=== PATIENT | male | born 1955 | race Caucasian/White ===

== ENCOUNTER 2021-09-26 22:52 | Emergency (ER) | payer SELFPAY ==
--- NOTE | ~2021-09-26 | CT_ITS ---
EXAMINATION: CT cervical spine wo con DATE: 09/27/2021 00:17 INDICATION: Head injury TECHNIQUE: Computed tomography (CT) of the cervical spine was performed without intravenous contrast. The dose-length product (DLP) was 605.33 mGy-cm. Automated exposure control and iterative reconstruc tion technique were employed. COMPARISON: None FINDINGS: There is straightening of the cervical spine which can be positional or due to muscular spa sm. There is no fracture, dislocation, or subluxation. There is moderate loss of intervertebral disc space height at C5-6 and C6-7. Small degenerative osteophytes project from the anterior endplates of multiple vertebral bodies. The odontoid is intact. IMPRESSION: 1. Moderate cervical spondylosis without acute findings. 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
--- NOTE | ~2021-09-26 | CT_ITS ---
EXAMINATION: CT brain wo con INDICATION: Head injury COMPARISON: None TECHNIQUE: Standard unenhanced head CT. The dose-length product (DLP) was 605.33 mGy-cm. The mA was a djusted according to patient size. Iterative reconstruction technique was employed. FINDINGS: There is no intracranial hemorrhage, acute infarction, or abnormal mass lesion. The ventric les are normal. There is no abnormal mass effect or midline shift. The ospina-white matter differentiat ion is normal. The basal cisterns are patent. Changes in the right globe are likely from ocular lens surgery. The paranasal sinuses, mastoids and calvarium are normal. IMPRESSION: 1. No acute intracranial abnormality. 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
[2021-09-26 23:05] VITALS: BP 151/88; PULSE 98; RESP 16; TEMP 36.4; O2SAT 95
--- NOTE | 2021-09-26 23:15 | ECG_ITS ---
Measurements Intervals [place] Rate: 88 P: 13 SD: 152 QRS: 29 QRSD: 109 T: 29 QT: 364 QTc: 442 Interpretive Statements SINUS RHYTHM DELAYED PRECORDIAL R/S TRANSITION MINIMAL Q WAVES- INFERIOR LEADS NONSPECIFIC ST ELEVATION IN ANTEROLAT/HIGH LAT LEADS BORDERLINE ECG Electronically Signed On 09-27-2021 6:27:53 NIGHT COORDINATOR by Gilberto Zacarias D.O.
[2021-09-26 23:39] LABS: Add Urine Microscopic? YES; Appearance Urine Clear (Clear); Bilirubin Urine Negative (Negative); Blood Urine Negative (Negative); Color Urine Light Yellow (Yellow); Glucose Urine UA 3+ (Negative); Ketones Urine Negative (Negative); Leukocyte Esterase Ur Negative (Negative); Nitrate Urine Negative (Negative); Protein Urine Negative (Negative); Urobilinogen Urine 0.2 mg/dL (0.2-1.0)
[2021-09-26 23:45] LABS: Amphetamine Screen Urine Negative (Negative); Barbiturate Screen Urine Negative (Negative); Benzodiazepines Screen Urine Negative (Negative); Cannabinoid Screen Urine Negative (Negative); Cocaine Screen Urine Negative (Negative); Methadone Screen Urine Negative (Negative); Opiate Screen Urine Negative (Negative); Phencyclidine Screen Urine Negative (Negative)
[2021-09-26 23:58] LABS: Basophils Absolute Auto 0.05 K/mm3 (0.00-0.10); Basophils Percent Auto 0.6 % (0.0-1.0); Eosinophils Absolute Auto 0.13 K/mm3 (0.02-0.50); Eosinophils Percent Auto 1.5 % (1.0-6.0); Hematocrit 38.6 % (40.0-54.0); Hemoglobin 12.9 g/dL (14.0-18.0); Immature Granulocyte Absolute 0.14 K/mm3 (0.00-0.00); Immature Granulocyte Percent A 1.6 % (0.0-0.0); Lymphocytes Absolute Auto 2.74 K/mm3 (1.10-4.50); Mean Corpuscular HGB Conc 33.4 g/dL (32.0-36.0); Mean Corpuscular Hemoglobin 31.9 pg (27.0-31.0); Mean Corpuscular Volume 95.3 fL (78.0-102.0); Mean Platelet Volume 9.1 fl (8.7-11.0); Monocytes Absolute Auto 0.79 K/mm3 (0.10-0.90); Monocytes Percent Auto 8.9 % (2.0-11.0); Neutrophils Percent Auto 56.4 % (50.0-70.0); Platelet Count Result 336 K/mm3 (150-420); Red Blood Count 4.05 M/mm3 (4.70-6.10); Red Cell Distribution Width 12.4 % (11.6-14.4); White Blood Count 8.8 K/mm3 (4.8-10.8)
[2021-09-26 23:59] LABS: Bacteria Urine Trace /hpf; RBC Urine 0-2 /hpf (0-2); WBC Urine 0-3 /hpf (0-3)
[2021-09-27 00:15] LABS: Alanine Aminotransferase 54 U/L (16-63); Albumin Level 3.5 g/dL (3.4-5.0); Alkaline Phosphatase 120 U/L (46-116); Anion Gap 12 mmol/L (8-16); Aspartate Amino Transferase 27 U/L (15-37); Bilirubin,Total 0.4 mg/dL (0.00-1.00); Blood Urea Nitrogen 25 mg/dL (7-18); Calcium 8.9 mg/dL (8.5-10.1); Carbon Dioxide 28 mmol/L (21-32); Chloride 100 mmol/L (98-108); Estimated CRCL calculation 56 ml/min; Estimated Glomerular Filt Rate 48; Ethanol 195 mg/dL (0-6); Glucose 284 mg/dL (70-99); Osmolality Calculated 304 mOsm/kg (285-295); Potassium 3.4 mmol/L (3.5-5.1); Sodium 140 mmol/L (136-145); Total Protein 7.5 g/dL (6.4-8.2); Troponin I 6.8 ng/L (0.00-60.4)
[2021-09-27] MEDS: THIAMINE HCL INJ 100 MG, FOLIC ACID 1 MG, MULTIVITAMINS-12 INJ 10 ML, MAGNESIUM SULFATE... 1000 MG IV CONT (00:17)
--- NOTE | 2021-09-27 01:35 | ED.FALL ---
HPI - Fall General Chief Complaint: Fall Stated Complaint: back,neck, head injury Time Seen by Provider: 09/26/21 22:56 Source: patient, family and RN notes reviewed Mode of arrival: ambulatory Limitations: no limitations History of Present Illness complaint: fall Onset (ago): hour(s) (1) Fall from: standing and down stairs (#) Fall witnessed: yes, by family Place fall occurred: home Loss of consciousness: yes Length of LOC: second(s) Prolonged down time: no Symptoms prior to fall: other (Etoh intoxication) Context: tripped/slipped and alcohol use Location of injury: head Severity: mild Severity scale (1-10): 3 Quality: dull and aching Associated symptoms (after fall): headache (minimal) Related Data Home Medications Medication Instructions Recorded Confirmed No Home Medications 09/26/21 09/26/21 Allergies Allergy/AdvReac Type Severity Reaction Status Date / Time No Known Allergies Allergy Verified 09/26/21 23:17 Review of Systems Review of Systems: All systems reviewed & are unremarkable except as noted in HPI and below PMFSH Past Medical History Medical History (Updated 09/27/21 @ 03:45 by Tray Jose MD) Alcohol intoxication Concussion with loss of consciousness Head injury Exam Const: General: no acute distress and alert Nutritional Appearance: well nourished Orientation/consciousness: patient oriented x3 Limitations: no limitations HENMT: Head: normal to inspection Ears: external ears normal and TM's normal bilaterally General nose exam: Normal external nose present and Normal nares present Face and sinus: sinuses nontender Mouth: Yes lip normal and Yes moist mucous membranes Eyes: Conjunctivae: conjunctivae normal Pupils: Equal, round and reactive pupils present EOM: EOMs intact bilaterally Neck: Neck: normal visual inspection and no lymphadenopathy Other: neck supple Chest: Chest palpation & inspection: normal inspection of the chest Resp: Effort & Inspection: normal respiratory effort Auscultation: clear to auscultation bilaterally Cardio: Rate: regular rate Rhythm: regular rhythm GI: GI Palp: Yes Soft to palpation and No Tenderness to palpation present (GI) Auscultation: normal bowel sounds : General: Yes bladder normal to palpation and Yes no CVA tenderness Male General Exam: Yes normal external exam Back/Spine/Pelvis: Back: no CVA tenderness Skin: General skin exam: normal color Neuro: General: patient oriented x3, moves all extremities, no meningeal signs, no focal motor deficits and CN's II-XI intact bilaterally Extrem: General: normal to inspection and no pedal edema Psych: Appearance: grossly normal and well kempt Mental Status: mental status grossly normal Affect: normal affect Attitude: cooperative Thought content: Yes Normal thought content present Course Course Emergency Course: Pt was stable and ambulatory in the ED. Reevaluation(s) Reevaluation #1: VSS Date: 09/26/21 Time: 23:49 Vital Signs Vital signs: Vital Signs Temperature 36.4 C 09/26/21 23:05 Pulse Rate 98 09/26/21 23:05 Respiratory Rate 16 09/26/21 23:05 Blood Pressure 151/88 H 09/26/21 23:05 Pulse Oximetry 95 09/26/21 23:05 Temperature 36.4 C 09/26/21 23:05 Pulse Rate 90 09/27/21 01:50 Respiratory Rate 20 09/27/21 01:50 Blood Pressure 130/56 L 09/27/21 01:50 Pulse Oximetry 100 09/27/21 01:50 MDM - Fall Differential Diagnosis Differential diagnosis: Likely syncope and concussion with loss of consciousness Medical Records Attestation: I reviewed the patient's medical records. Lab Data Attestation: I reviewed the patient's lab results. Result diagrams: 09/26/21 23:54 09/26/21 23:54 Labs: Lab Results 09/26/21 09/26/21 09/26/21 Range/Units 23:32 23:32 23:54 WBC 8.8 (4.8-10.8) K/mm3 RBC 4.05 L (4.70-6.10) M/mm3 Hgb 12.9 L (14.0-18.0) g/dL Hct 38.6 L (40.0-54.0) % MCV 95.3
[2021-09-27 01:50] VITALS: BP 130/56; PULSE 90; RESP 20; O2SAT 100
== END 2021-09-27 01:55 | disposition home or self-care (01) ==
PROVIDERS: Emergency Provider Emergency Medicine
DX: S06.0X9A Concussion with loss of consciousness of unspecified duration, initial encounter (principal); F10.920 Alcohol use, unspecified with intoxication, uncomplicated; W10.9XXA Fall (on) (from) unspecified stairs and steps, initial encounter
CPT/HCPCS: 36415; 70450; 72125; 80053; 80307; 81001; 84484; 85025; 93005; 96365; 99284; J3411; J3475; J7030

== ENCOUNTER 2023-04-11 13:20 | Emergency (ER) | payer MEDICARE, OTHER, SELFPAY ==
--- NOTE | ~2023-04-11 | XR_ITS ---
EXAMINATION: XR finger 1st RT min 2V DATE: 04/11/2023 13:42 INDICATION: Right thumb pain. Fall. TECHNIQUE: 3 views of right thumb were obtained. COMPARISON: None. FINDINGS: There is a comminuted fracture of first distal phalanx in near-anatomic alignment. 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 IMPRESSION: 1. Comminuted fracture of first distal phalanx. Reviewed, dictated and finalized at location E.
[2023-04-11 13:33] VITALS: BP 168/70; PULSE 91; RESP 20; TEMP 37.1; O2SAT 98
--- NOTE | 2023-04-11 13:42 | ED.UPPEXIN ---
HPI - Extremity Injury (Upper) General Chief Complaint: Extremity Injury, Upper Stated Complaint: Right Thumb Injury Source: patient and RN notes reviewed History of Present Illness HPI narrative: 67 yo M presents to urgent care with right thumb pain. Pt states he injured his thumb some how on Saturday night. Pt states alcohol was involved and he woke up Saturday morning on the floor with chairs toppled over. Pt states he doesn't know if he fell out of the chair, passed out, or what, but believes he probably just fell asleep there at the computer b/c he has done that before. Denies any other injury. Denies any TRISTAN, vomiting, chest pain, neck pain, SOB, or abdominal pain. Pt has taken Tylenol at home. Related Data Home Medications Medication Instructions Recorded Confirmed atorvastatin 40 mg tablet mg 04/11/23 glimepiride 4 mg tablet mg 04/11/23 tamsulosin 0.4 mg capsule mg PO 04/11/23 Allergies Allergy/AdvReac Type Severity Reaction Status Date / Time No Known Allergies Allergy Verified 04/11/23 13:43 Review of Systems Review of Systems: CONSTITUTIONAL: Denies fever, chills, or sweats. EYES: Denies visual changes, redness, or discharge. ENT: Denies otalgia and sore throat CARDIOVASCULAR: Denies chest pain, palpitations, or edema. RESPIRATORY: Denies cough or dyspnea. GASTROINTESTINAL: Denies abdominal pain, nausea, vomiting, or diarrhea. GENITOURINARY: Denies dysuria or hematuria. SKIN: Denies rash or itching. MUSCULOSKELETAL: Right thumb pain NEUROLOGIC: Denies headache, numbness, or weakness. Pertinent positives per HPI. PMFSH Comments At the time of my signature, I reviewed and agree with the nursing past medical, surgical, social, and family history. There is no relevant family history pertinent to the patient complaint. Exam Narrative: GENERAL: This is a well-nourished, well-developed patient, in no apparent distress. HEAD: normocephalic, atraumatic. EYES: Sclera clear/white. Vision is grossly intact. EARS: External ears normal, auditory canals clear and without drainage, TMs normal without perforation. Hearing grossly intact. NOSE: External nose normal with no obvious nasal discharge, nares without redness, no rhinorrhea. THROAT: Mucous membranes moist, posterior pharynx clear. NECK: Neck supple, non-tender without lymphadenopathy, masses or thyromegaly. CARDIOVASCULAR: Regular rate and rhythm without murmurs, gallops, or rubs. RESPIRATORY: Clear to auscultation. Breath sounds equal bilaterally. No wheezes, rales, or rhonchi. GASTROINTESTINAL: Abdomen soft, non-tender, nondistended. Bowel sounds are active. No hepato-splenomegaly, or palpable masses. No guarding. SKIN: warm, intact with no suspicious lesions or rash, good texture and turgor. NEURO: awake, alert, and oriented to person, place and time. There were no obvious focal neurologic abnormalities. EXTREMITIES: Right thumb noted to be bruised, tender, and edematous. Lower half of base of nail was bruised. Cap refill < 3 seconds. BACK: Nontender without deformity or crepitus. No flank tenderness. Course Course Level of Care: Express Care Visit Vital Signs Vital signs: Vital Signs Temperature 98.7 F 04/11/23 13:33 Pulse Rate 91 04/11/23 13:33 Respiratory Rate 20 04/11/23 13:33 Blood Pressure 168/70 H 04/11/23 13:33 Pulse Oximetry 98 04/11/23 13:33 Oxygen Delivery Room Air 04/11/23 13:33 Temperature 98.7 F 04/11/23 13:33 Pulse Rate 91 04/11/23 13:33 Respiratory Rate 20 04/11/23 13:33 Blood Pressure 168/70 H 04/11/23 13:33 Pulse Oximetry 98 04/11/23 13:33 Oxygen Delivery Room Air 04/11/23 13:33 Reviewed Procedures Nail Trephination Nail Trephination #1: Nail Trephination Date: 04/11/23 Nail Trephination Time: 14:10 Time out: Yes Location (finger): right and thumb Sterile prep: chlorhexidine Method of drainage: nail cautery Procedure
== END 2023-04-11 14:27 | disposition home or self-care (01) ==
PROVIDERS: Emergency Provider Nurse Practitioner Family
DX: S62.524A Nondisplaced fracture of distal phalanx of right thumb, initial encounter for closed fracture (principal); W19.XXXA Unspecified fall, initial encounter; E78.00 Pure hypercholesterolemia, unspecified; I10 Essential (primary) hypertension; E11.9 Type 2 diabetes mellitus without complications
CPT/HCPCS: 29130; 73140; 99214; G0463

== ENCOUNTER 2025-07-25 08:27 | Emergency (ER) | payer MEDICARE, OTHER, SELFPAY ==
--- OUTSIDE RECORDS SUMMARY | 2025-03-24 08:15 | XMS_ITS ---
Author Organization [facility] Address [address] [place] [id number] Care Team Providers Care Box Sealing Machine Catcher Name Role Phone STEPHANIA BRIGGS Unavailable [phone] AileenGal diaz Unavailable Unavailable Allergies Allergen (clinical drug ingredient) Drug/Non Drug Allergy documented on EMR Reaction Allergy Type Onset Date Status acetaminophen / oxycodone acetaminophen/oxycodo ne (uncoded) Unknown Allergy Active REASON FOR VISIT FOLLOW-UP VISIT, General ROS/Exam Medications Medication SIG (Take, Route, Frequency, Duration) Notes Start Date End Date Status Escitalopram Oxalate 20 MG 1 tablet Oral ly Once a day Active Atorvastatin Calcium 40 MG 1 tablet Oral ly Once a day Active Gabapentin 100 MG TAKE 1 CAPSULE BY [facility] THREE TIMES A DAY Oral; Duration: 30 Days Active hydrALAZINE HCl 50 MG 1 tablet with food Orally Twice a day Active metFORMIN HCl 500 MG 1 tablet with a chichi l Orally Once a day Active Tamsulosin HCl 0.4 MG 1 capsule Orally O nce a day Active Spironolactone 25 MG 1 tablet Orally Onc e a day Active Glimepiride 4 MG 1 tablet with breakf ast or the first main meal of the day Orally Once a day Active cloNIDine HCl 0.2 MG 1 tablet Orally Onc e a day Active Social History Tobacco Use: Social History Observation Description Date Details (start date - stop date) Former Smoker NA - NA Tobacco Control (Standard) Question Answer Notes Tobacco use: Former smoker AUDIT-C (Standard) Question Answer Notes Did you have a drink contain ing alcohol in the past year? Yes How often did you have a dri nk containing alcohol in the past year? Daily or almost daily (4 points) How many drinks did you have on a typical day when you were drinking in the past year? 1 or 2 drinks (0 point) How often did you have six o r more drinks on one occasion in the past year? Never (0 point) Points 4 Interpretation Positive Vital Signs Height 70 in 03/24/2025 Weight 218.4 lbs 03/24/2025 BMI 31.33 kg/m2 03/24/2025 Blood pressure systolic 160 mm Hg 03/24/20 25 Blood pressure diastolic 60 mm Hg 025 Heart Rate 98 /min 03/24/2025 Respiratory Rate 18 /min 03/24/2025 Weight-kg 99.07 kg 03/24/2025 Encounters Encounter Location Date Provider Diagnosis [place] [id number] [address] 03/24/2025 STEPHANIA BRIGGS CKD (chronic kidney disease) stage 4, GFR 15-29 ml/min N18.4 ; Essential (primary) hypertension I10 ; Type 2 diabetes mellitus without complications E11.9 ; Hyperlipidemia, unspecified E78.5 ; Benign prostatic hyperplasia without lower urinary tract symptoms N40.0 and Other specified anxiety disorders F41.8 Assessments Encounter Date Diagnosis (ICD Code) Assessment Notes Treatment Notes Treatment Clinical Notes Section Notes 03/24/2025 CKD (chronic kidney disease) stage 4, GFR 15-29 ml/min (ICD-10 - N18.4) 03/24/2025 Essential (primary) hypertension (ICD-10 - I10) 03/24/2025 Type 2 diabetes mellitus without complications (ICD-10 - E11.9) 03/24/2025 Hyperlipidemia, unspecified (ICD-10 - E78.5) 03/24/2025 Benign prostatic hyperplasia without lower urinary tract symptoms (ICD-10 - N40.0) 03/24/2025 Other specified anxiety disorders (ICD-10 - F41.8) Plan Of Treatment Next Appt Details Follow Up: 3 Weeks, Reason: Progress Notes * IGNACIO CONRAD SDOB:[birth year] (69 yo M)Acc No.[id number]:03/24/2025 Progress Notes Patient: IGNACIO ANTHONY Provider: Bob Briggs MD :1955 A ge:69 Y S ex:Male Date:03/24/2025 Address:[address] Subjective: * Chief Complaints: * 1 . FOLLOW-UP VISIT. 2. General ROS/Exam. * HPI: C hronic kidney disease: . 69-year-old with medical history significant for diabetes mellitus type 2 for 10 years, diabetic neuropathy, hypertension, obesity who presents for evaluation and management of abnormal renal function. Patient was recently seen on February 03 by my partner and at that time his Aldactone HCTZ and olmesartan was discontinued and he was restarted on amlodipine. Patient reports he went to see his primary care physician recently and he was started on some diuretic the name of which he does not know. His weight has decreased by 2 lb since he was last seen here. Renal function has markedly improved with creatinine close to baseline but he has severe bilateral lower extremity edema. Patient does not remember the name of the diuretic that he was placed on. He is supposed to call us tomorrow and let us know. On direct questioning patient reports that he has been a heavy alcohol drinker and used to drink a lot of beer before that he has quit but now drinks whiskey. He used to drink a 5th every night with has decreased by half. He also has history of heavy tobacco use but quit about 20 years ago. 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 Workup is negative for vasculitis, GN, monoclonal gammopathy. 24 hour urine protein with 342 mg of proteinuria.Next 128 by a 5.9 and left kidney 10.9 x 5.9 cm with no evidence of obstructive uropathy Blood pressure elevated today Home blood pressure readings requested. Patient will call us back with his diuretic name and also will keep track of his blood pressure. He will need his diuretics increased. Diet discussed with sodium restrictions discussed. I will see him back in 3 weeks . * ROS: G eneral / Constitutional: Change in appetite d enies. L ightheadedness d enies. W eakness d enies. R espiratory: Hemoptysis d enies. S hortness of breath at rest d enies. G astrointestinal: Abdominal pain d enies. C hange in bowel habits d enies. V omiting d enies. H ematology: Bleeding problems d enies. W eight loss d enies.? M usculoskeletal: Joint stiffness d enies. S kin: Ulcerations d enies. * Active Problem List N18.4 CKD (chronic kidney disease) stage 4, GFR 15-29 ml/min Modified On:02/03/2025 Status:confirmed I10 Essential (primary) hypertension Onset Date:11/12/2023Modified On:02/03/2025 Status:confirmed E11.9 Type 2 diabetes romy itus without complications Onset Date:11/12/2023Modified On:02/03/2025 Status:confirmed E78.5 Hyperlipidemia, unsp ecified Onset Date:04/27/2024Modified On:02/03/2025 Status:confirmed N40.0 Benign prostatic hyp erplasia without lower urinary tract symptoms Onset Date:11/12/2023Modified On:02/03/2025 Status:confirmed F41.8 Other specified anxi ety disorders Onset Date:11/12/2023Modified On:02/03/2025 Status:confirmed I89.0 Lymphedema Modified On:04/29/2025 Status:confirmed * Medical History: M edical History Verified. * Social History: T obacco Use: T obacco Control (Standard) T obacco use: F ormer smoker D rug/Alcohol: A ERNESTO-C (Standard) D id you have a drink containing alcohol in the past year? Y es H ow often did you have a drink containing alcohol in the past year? D aily or almost daily (4 points) H ow many drinks did you have on a typical day when you were drinking in the past year? 1 or 2 drinks (0 point) H ow often did you have six or more drinks on one occasion in the past year? N ever (0 point) P oints 4 I nterpretation P ositive * Medications: T aking hydrALAZINE HCl 50 MG Tablet 1 tablet with food Orally Twice a day , Taking metFORMIN HCl 500 MG Tablet 1 tablet with a meal Orally Once a day , Taking cloNIDine HCl 0.2 MG Tablet 1 tablet Orally Once a day , Taking Spironolactone 25 MG Tablet 1 tablet Orally Once a day , Taking Tamsulosin HCl 0.4 MG Capsule 1 capsule Orally Once a day , Taking Glimepiride 4 MG Tablet 1 tablet with breakfast or the first main meal of the day Orally Once a day , Taking Escitalopram Oxalate 20 MG Tablet 1 tablet Orally Once a day , Taking Atorvastatin Calcium 40 MG Tablet 1 tablet Orally Once a day , Taking Gabapentin 100 MG Capsule TAKE 1 CAPSULE BY MOUTH THREE TIMES A DAY Oral , Medication List reviewed and reconciled with the patient * Allergies: A cetaminophen/oxycodone. Objective: * Vitals: H t (ft'in): 5'10, Ht: 70 in, Wt:218.4lbs, BMI:31.33Index, BP:160/60mm Hg, HR:98/min, RR:18/min, Wt-k.07 kg, Body Surface Area: 2.21. * P ast Orders: L ab:KVNG by IFA, Reflex to 11-biomarker profile, dsDNA, ENGINEERING LABORATORY TECHNICIAN, Sm, SS-A, SS-B, Scl- 70, Chromatin, Melissa-1, Centromere B, Sm/ENGINEERING LABORATORY TECHNICIAN, Ribosomal P by Multiplex Immunoassay- [id number] (Order Date - 03/07/2025) (Collection Date & Time - 02/15/2025 01:51 PM) Value Reference Range Antinuclear Antibodies, IFA Negative - L ab:Immunofixation (ARTIS) and Protein Electrophoresis, 24-Hour Urine-[id number] (Order Date - 03/07/2025) (Collection Date & Time - 02/15/2025 01:51 PM) Value Reference Range Protein,Total,Urine 34.2 Not Estab. - mg/dL Prot,24hr calculated 342 H 30-150 - mg/24 hr Albumin, U 55.1 - % Pbguj-7-Orjyscjj, U 1.2 - % Ysxaw-4-Qwzeolpw, U 5.7 - % Beta Globulin, U 16.7 - % Gamma Globulin, U 21.4 - % M-Lauro, % Not Observed Not Observed - % Immunofixation Result, Urine Comment: - PDF . - L ab:Immunofixation (ARTIS), Serum-[id number] (Order Date - 03/07/2025) (Collection Date & Time - 02/15/2025 01:51 PM) Value Reference Range Immunofixation Result, Serum Comment: - Immunoglobulin G, Qn, Serum [phone] - m g/dL Immunoglobulin A, Qn, Serum 269 61-437 - mg/ dL Immunoglobulin M, Qn, Serum 81 20-172 - mg/ dL L ab:ANCA Profile-[id number] (Order Date - 03/07/2025) (Collection Date & Time - 02/15/2025 01:51 PM) Value Reference Range Anti-MPO Antibodies <0.2 0.0-0.9 - units Anti-PR3 Antibodies <0.2 0.0-0.9 - units Cytoplasmic (C-ANCA) <1:20 Neg:<1:20 - titer Perinuclear (P-ANCA) <1:20 Neg:<1:20 - titer Atypical pANCA <1:20 Neg:<1:20 - titer L ab:Anti-Glomerular Basement Membrane Antibodies (RDL)-[id number] (Order Date - 03/07/2025) (Collection Date & Time - 02/15/2025 01:51 PM) Value Reference Range Anti-GBM Ab (RDL) <20 <20 - Units L ab:Acute Viral Hepatitis-[id number] (Order Date - 03/07/2025) (Collection Date & Time - 02/15/2025 01:51 PM) Value Reference Range Hep A Ab, IgM Negative Negative - HBsAg Screen Negative Negative - Hep B Core Ab, IgM Negative Negative - HCV Ab Non Reactive Non Reactive - L ab:HIV Ag/Ab with Reflex-[id number] (Order Date - 03/07/2025) (Collection Date & Time - 02/15/2025 01:51 PM) Value Reference Range HIV Screen 4th Generation wRfx Non Reactive Non React cody - L ab:C3+C4+CompT-[id number] (Order Date - 03/07/2025) (Collection Date & Time - 02/15/2025 01:51 PM) Value Reference Range Complement C3, Serum 166 82-167 - mg/dL Complement C4, Serum 31 12-38 - mg/dL Complement, Total (CH50) >60 >41 - U/mL L ab:Renal Panel ([id number] (Order Date - 03/07/2025) (Collection Date & Time - 02/15/2025 01:51 PM) Value Reference Range Glucose 107 H 70-99 - mg/dL BUN 10 8-27 - mg/dL Creatinine 1.06 0.76-1.27 - mg/dL BUN/Creatinine Ratio 9 L 10-24 - Sodium 135 134-144 - mmol/L Potassium 3.6 3.5-5.2 - mmol/L Chloride 98 96-106 - mmol/L Carbon Dioxide, Total 22 20-29 - mmol/L Calcium 9.0 8.6-10.2 - mg/dL Phosphorus 2.2 L 2.8-4.1 - mg/dL Albumin 4.3 3.9-4.9 - g/dL eGFR 77 >59 - mL/min/1.73 L ab:Albumin, 24-Hr Urine-[id number] (Order Date - 03/07/2025) (Collection Date & Time - 02/15/2025 01:51 PM) Value Reference Range Albumin, Urine 96.8 Not Estab. - ug/mL Albumin,Urine mg/day 97 H 0-29 - mg/day * Examination: G eneral Examination: General appearance: a lert, pleasant, well-nourished and in no acute distress . Head: n ormocephalic, atraumatic. Eyes: p upils equal, round, reactive to light and accommodation. Ears: n ormal. Throat: c lear. Neck / thyroid: c arotid pulses are normal and without bruits neck is supple, with full range of motion and no cervical lymphadenopathy trachea midline . Skin: s kin is warm and dry, with no rashes, good skin turgor and normal hair distribution with no suspicious skin lesions . Heart: r egular rate and rhythm without murmurs, gallops, clicks or rubs no jugular venous distention . Lungs: c lear to auscultation bilaterally, with good air movement and no rales, rhonchi or wheezes . Chest: c hest wall with no costochondral junction tenderness, no rib deformity and normal shape and expansion . Breasts: n ot examined . Abdomen: s oft with good bowel sounds, nontender, and no masses or hepatosplenomegaly . Extremities: n ormal extremity with no clubbing, cyanosis or edema . Peripheral pulses: n ormal 2+ arterial pulses . Neurologic: n onfocal alert and oriented . Psych: a lert and oriented x 3 . Assessment: * Assessment: 1. C KD (chronic kidney disease) stage 4, GFR 15-29 ml/min - N18.4 (Primary) 2 . E ssential (primary) hypertension - I10 3 . T ype 2 diabetes mellitus without complications - E11.9 4 . H yperlipidemia, unspecified - E78.5 5. B enign prostatic hyperplasia without lower urinary tract symptoms - N40.0 ?6. O ther specified anxiety disorders - F41.8 Plan: * Treatment: * Preventive Medicine: Screenings: F all risk screening Screening: N o falls in the past year * Follow Up: 3 Weeks * * Electronic signature of MITZI BRIGGS MD on 07/25/2025 at 08:29 AM FURNACE UTILITY OPERATOR Sign off status: Pending * Provider: Bob Briggs MD Date: 0 03/24/2025 Generated for Lux kowalski/Srinivas/Faisal on: 1 09/25/2024 08:29 AM FURNACE UTILITY OPERATOR History and Physical Notes * HPI (History of Present Illness) Category Sub-Category Detail Notes Category Not es Chronic kidney disease . 69-year-old with medical history significant for diabetes mellitus type 2 for 10 years, diabetic neuropathy, hypertension, obesity who presents for evaluation and management of abnormal renal function. Patient was recently seen on February 03 by my partner and at that time his Aldactone HCTZ and olmesartan was discontinued and he was restarted on amlodipine. Patient reports he went to see his primary care physician recently and he was started on some diuretic the name of which he does not know. His weight has decreased by 2 lb since he was last seen here. Renal function has markedly improved with creatinine close to baseline but he has severe bilateral lower extremity edema. Patient does not remember the name of the diuretic that he was placed on. He is supposed to call us tomorrow and let us know. On direct questioning patient reports that he has been a heavy alcohol drinker and used to drink a lot of beer before that he has quit but now drinks whiskey. He used to drink a 5th every night with has decreased by half. He also has history of heavy tobacco use but quit about 20 years ago. 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 Workup is negative for vasculitis, GN, monoclonal gammopathy. 24 hour urine protein with 342 mg of proteinuria.Next 128 by a 5.9 and left kidney 10.9 x 5.9 cm with no evidence of obstructive uropathy Blood pressure elevated today Home blood pressure readings requested. Patient will call us back with his diuretic name and also will keep track of his blood pressure. He will need his diuretics increased. Diet discussed with sodium restrictions discussed. I will see him back in 3 weeks . Examination Category Sub-Category Detail Notes Category Not es General Examination General appearance: alert, p leasant, well-nourished and in no acute distress Head: normocephalic, atrau matic Eyes: pupils equal, round, reactive to light and accommodation Ears: normal Throat: clear Neck / thyroid: carotid pulses are n ormal and without bruits neck is supple, with full range of motion and no cervical lymphadenopathy trachea midline Heart: regular rate and rhy thm without murmurs, gallops, clicks or rubs no jugular venous distention Chest: chest wall with no c ostochondral junction tenderness, no rib deformity and normal shape and expansion Lungs: clear to auscultatio n bilaterally, with good air movement and no rales, rhonchi or wheezes Abdomen: soft with good bowel sounds, nontender, and no masses or hepatosplenomegaly Neurologic: nonfocal alert and o riented Skin: skin is warm and dry , with no rashes, good skin turgor and normal hair distribution with no suspicious skin lesions Extremities: normal extremity wit h no clubbing, cyanosis or edema Peripheral pulses: normal 2+ arterial p ulses Breasts: not examined Psych: alert and oriented x 3
--- OUTSIDE RECORDS SUMMARY | 2025-07-25 08:29 | XMS_ITS | Patient Health Record ---
Author Organization [facility] Address [address], [place] LAKESHIA Rajan [id number] Phone [phone] Care Team Providers Care Tool/Die Maker Name Role Phone Chandra Collins Primary Care Provider Allergies No Known Allergies Reason For Referral No Information Medications Medication SIG (Take, Route, Frequency, Duration) Notes Start Date End Date Diagnosis (ICD Code) Status Glimepiride 4 mg tablet 1 tab(s) orally once a day; Duration: 90 days Active Finasteride 5 mg tablet 1 tab(s) orally once a day; Duration: 90 days Active Atorvastatin Calcium 40 mg tablet 1 tab(s) orally once a day; Duration: 90 days Active Benicar 40 mg tablet 1 tab(s) orally once a day; Duration: 90 days needs seen Active metFORMIN HCl 500 MG tablet 1 tab(s) orally 2 times a day; Duration: 90 days Active Felodipine ER 5 mg tablet, extended release 1 tab(s) orally once a day; Duration: 90 days *Pick strength-form from [employer] for eRX* 2 Essential hypertension (ICD_10 - I10) Active Escitalopram Oxalate 20 MG tablet 1 tab(s) orally once a day; Duration: 90 days needs seen Active Social History Sex Observation Social History Observation Description Sex Observation Male Social History Additional Details Category Social Info Options Details Migrated Social History Migrated Social History (Alcohol:): How often did you have a drink containing alcohol in the past year? 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 > 10 years Problems Problem Type SNOMED Code ICD Code Dates Problem Status W/U Status Risk Notes Problem Essential hypertension (25838548) Essential hypertension (I10) Added On:2018 Active confirmed Problem Dyslipidemia (674768617) Dyslipidemia (E78.5) Added On:2018 Active confirmed Problem Dysthymia (04696887) Dysthymia (F34.1) Added On:2019 Active confirmed Problem Obese class I (finding) (915752735748189 ) Obesity (BMI 30.0-34.9) (E66.9) Added On:2018 Active confirmed Problem Peripheral vascular disease (497785041) PVD (peripheral vascular disease) (I73.9) Added On:2018 Active confirmed Problem Benign prostatic hypertrophy without outflow obstruction (932499556) Benign prostatic hyperplasia, unspecified whether lower urinary tract symptoms present (N40.0) Added On:2018 Active confirmed Problem Fatty liver (188609558) Fatty liver (K76.0) Added On:2020 Active confirmed Problem Type II diabetes mellitus without complication (653466965) Type 2 diabetes mellitus without complication, without long-term current use of insulin (E11.9) Added On:2018 Active confirmed Problem Cortical senile cataract (62804399) Cortical age-related cataract, unspecified laterality (H25.019) Added On:2022 Active confirmed Plan Of Treatment No Information Insurance Providers Payer Name Payer Address Payer Phone Subscriber Number Group Number Insured Name Patient Relationship to Insured Coverage Start Date Coverage End Date Medicare [address] [place] [id number] Jamar Mesa Self - patient is the insured [place] [address] [id number] Jamar Mesa Self - patient is the insured Medical (General) History Medical History History ICD Code Benign prostatic hyperplasia , unspecified whether lower urinary tract symptoms present N40.0 Type 2 diabetes mellitus wit hout complication, without long-term current use of insulin E11.9 Essential hypertension I10 Dyslipidemia E78.5 Obesity (BMI 30.0-34.9) E66.9 pneumonia Dysthymia F34.1 COVID 19 Fatty liver K76.0 PVD (peripheral vascular disease) I73.9 Surgical History Surgery Date(Month/Year) appendectomy colonoscopy 1999?? cataract R
--- OUTSIDE RECORDS SUMMARY | 2025-07-25 08:29 | XMS_ITS | Data Portability ---
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 Plan of Treatment Reminders Order Date Submit Date Provider Last Modified By Organization Details Last Modified Time Details Appointments ANY 15 2025 07:45A M Patricia Wolfe APN, [employer]-C Not available Not available Not available ANY 15 2025 08:15A M Gal Gallagher MD Not available Not available Not available Lab CMP, serum or plasma 2024 026 [facility], [address], [address], 07/09/2025 09:57:03 HbA1c (hemoglo bin A1c), blood 2024 025 In-Office Order, Internal Use Only DO Not Attach Compendium DO Not Attach Compendium, Do Not Delete/merge, [id number] 06/16/2025 18:10:18 BMP, serum or plasma 2024 025 [facility], [address] [facility] [address], [address], 07/01/2025 08:40:19 BMP, serum or plasma 2024 025 [facility], [address] [facility] [address], [address], 06/09/2025 07:40:00 pro BNP (pro B-type natriure tic peptide) , serum or plasma 2024 025 [facility], [address] [place] [address], [place], [address], 06/09/2025 07:39:59 pro BNP (pro B-type natriure tic peptide) , serum or plasma 2024 025 [facility], [address] [place] [address], [place], [address], 05/11/2025 09:39:46 BMP, serum or plasma 2024 025 [facility], [address] [place] [address], [place], [address], 05/11/2025 09:39:46 Referral None recorded . Procedures None recorded . Surgeries None recorded . Imaging pharmaco logic nuclear stress test - Pharmaco logic nuclear stress test 2024 [facility], [address], [place], [address], 07/16/2025 16:25:43 Medication Orders olmesart an 20 mg tablet 2024 [facility], [address], [place], [address], 07/09/2025 09:57:05 Kerendia 20 mg tablet 2024 [facility], [address], [place], [address], 07/11/2025 05:01:57 torsemid e 20 mg tablet 2024 [facility], [address], [place], [address], 07/12/2025 14:43:54 Miralax 17 gram/dos e oral powder 2024 [facility], [address], [place], [address], 06/14/2025 09:08:12 gabapent in 100 mg capsule 2024 [facility], [address], [place], [address], 06/14/2025 09:08:13 torsemid e 20 mg tablet 2024 [facility], [address], [place], [address], 07/12/2025 14:43:14 Kerendia [address] [facility][id number], [address] [place] [address], [address], 07/11/2025 05:01:57 Kerendia 20 mg tablet 2024 [facility], [address], [place], [address], 07/11/2025 05:01:57 clonidin e HCl 0.1 mg tablet 2024 [facility], [address], [place], [address], 06/08/2025 09:58:22 torsemid e 20 mg tablet 2024 [facility], [address], [place], [address], 07/12/2025 14:43:14 hydralaz ine 100 mg tablet 2024 025 [facility], [address], [place], [address], 05/07/2025 16:43:17 torsemid e 20 mg tablet 2024 Isabella perdomomala [facility], [address], [place], [address], 07/12/2025 14:43:14 Patient TargetsNo targets recorded. Patient Instructions Encounter Date Encounter Id Patient Instructions Last Modified By Organization Details Last Modified Time 04/30/2025 [id number] A healthy lifestyle: care instructions [email or web address] Not available 04/30/2025 09:46:29 Discontinue telmisartan Clonidine 0.2 mg to be taken up to twice daily if the systolic blood pressure is greater than 160 Change hydralazine from 50 twice a day to 100 twice a day Restart torsemide. Instead of taking it 20 mg twice a day, please start at 10 mg once a day Drink at least 64 oz of water every day. Blood work in 10 days' time Follow-up with me in about 4 weeks' time Not available 04/30/2025 09:44:19 05/31/2025 [id number] A healthy lifestyle: care instructions [email or web address] Not available 05/31/2025 13:31:17 - Start clonidin e 0.1 mg twice a day scheduled. If your systolic number is over 160 you can take an extra clonidine up to twice a day. - for 1 week change her torsemide from 20 mg once a day to 20 mg twice a day. - call our office with an update on symptoms of leg swelling, weight and shortness of breath in 1 week's time. - Do blood work to check your kidney function in 1 week's time [email or web address] Not available 05/31/2025 13:31:37 06/11/2025 [id number] [employer] home BP monitor Change Torsemide to 20 mg once a day Start Kerendia 20 mg once a day Stop spironolactone Follow up Dec 1 as scheduled with labs prior Not available 06/11/2025 09:53:02 06/14/2025 [id number] high blood pressure: care instructions Not available 06/14/2025 09:08:05 learning about high blood pressure Not available 06/14/2025 09:08:05 high cholesterol : care instructions Not available 06/14/2025 09:08:05 A healthy lifestyle: care instructions Not available 06/14/2025 09:08:05 learning about mood disorders Not available 06/14/2025 09:08:05 Increase intake of fresh fruits, and vegetables. Avoid packaged foods and fast foods. Follow a low salt diet, drink at least 8-10 8oz glasses of water a day, exercise most days of the week. Take all medications as prescribed. Keep appointments with PCP and all specialists. Not available 06/14/2025 08:44:00 f/u 3 months DWP barriers to care: none Not available 06/14/2025 08:44:04 07/09/2025 [id number] A healthy lifestyle: care instructions [email or web address] Not available 07/09/2025 09:57:03 Start Olmesartan 20 mg once a day Labs in 4 weeks Stress test in about 2 months Follow up in about 3 months [email or web address] Not available 07/09/2025 09:56:43 Reason for Referral None Reported. Results Created Date Observation Date Name Description Value Unit Range Abnormal Flag Note LastModifiedBy Organization Detail LastModifiedTime 04/01/2004/01/2025 Lipas e [Enzy matic activ ity/v olume ] in Serum or Plasm a lipase [enzymatic activity/vol ume] in serum or plasma 29 U/L high: 60U/L Not Available Not Available 04/02/2025 23:10:59 04/01/20 25 04/01/2025 Lipas e [Enzy matic activ ity/v olume ] in Serum or Plasm a interpretati on and review of laboratory results Normal Not Available Not Available 03/06 23:10:59 04/01/20 25 04/01/2025 Thyro tropi n [Unit s/vol ume] in Serum or Plasm a thyrotropin [units/volum e] in serum or plasma by detection limit <= 0.005 mIU/L 2.003 text: 0.350 - 4.940 uIU/mL Not Available Not Available 04/02/2025 23:10:59 04/01/20 25 04/01/2025 Thyro tropi n [Unit s/vol ume] in Serum or Plasm a interpretati on and review of laboratory results Normal Not Available Not Available 03/06 23:10:59 04/01/20 25 04/01/2025 Compr Say-Hey cody Gravie olic 1999 panel - Serum or Plasm a glucose [mass/volume ] in serum or plasma 257 mg/dL low: 70mg/d Lhigh: 99mg/d L high Not Available Not Available 04/02/2025 23:10:59 04/01/20 25 04/01/2025 Compr [employer] cody metab olic 1999 panel - Serum or Plasm a sodium [moles/volum e] in serum or plasma 127 mmol/ L low: 136mmo l/Lhig h: 145mmo l/L low Not Available Not Available 04/02/2025 23:10:59 04/01/20 25 04/01/2025 Compr [employer] Gravie olic 1999 panel - Serum or Plasm a potassium [moles/volum e] in serum or plasma 3.2 mmol/ L low: 3.5mmo l/Lhig h: 5.1mmo l/L low Not Available Not Available 04/02/2025 23:10:59 04/01/20 25 04/01/2025 [facility] [employer] Gravie olic 1999 panel - Serum or Plasm a chloride [moles/volum e] in serum or plasma 83 mmol/ L low: 98mmol /Lhigh : 107mmo l/L low Not Available Not Available 04/02/2025 23:10:59 04/01/20 25 04/01/2025 Compr [employer] Gravie olic 1999 panel - Serum or Plasm a carbon dioxide, total [moles/volum e] in serum or plasma 30 mmol/ L low: 22mmol /Lhigh : 29mmol /L high Not Available Not Available 04/02/2025 23:10:59 04/01/20 25 04/01/2025 Compr Say[employer]Hey [employer] Gravie olic 1999 panel - Serum or Plasm a calcium [mass/volume ] in serum or plasma 9.1 mg/dL low: 8.4mg/ dLhigh : 10.4mg /dL Not Available Not Available 04/02/2025 23:10:59 04/01/20 25 04/01/2025 Compr Say-Hey [employer] Gravie olic 1999 panel - Serum or Plasm a anion gap in blood by calculation 14 mmol/ L low: 6mmol/ Lhigh: 16mmol /L Not Available Not Available 04/02/2025 23:10:59 04/01/20 25 04/01/2025 [facility] 1999 panel - Serum or Plasm a urea nitrogen [mass/volume ] in serum or plasma 15 mg/dL low: 7mg/dL high: 26mg/d L Not Available Not Available 04/02/2025 23:10:59 04/01/20 25 04/01/2025 [facility] 1999 panel - Serum or Plasm a creatinine [mass/volume ] in serum or plasma 1.34 mg/dL low: 0.72mg /dLhig h: 1.25mg /dL high Not Available Not Available 04/02/2025 23:10:59 04/01/20 25 04/01/2025 [facility] 1999 panel - Serum or Plasm a alkaline phosphatase [enzymatic activity/vol ume] in serum or plasma 151 U/L low: 40U/Lh igh: 150U/L high Not Available Not Available 04/02/2025 23:10:59 04/01/20 25 04/01/2025 [facility] [employer] 1999 panel - Serum or Plasm a alanine aminotransfe rase [enzymatic activity/vol ume] in serum or plasma 101 U/L low: 6U/Lhi gh: 57U/L high Not Available Not Available 04/02/2025 23:10:59 04/01/20 25 04/01/2025 [facility] [employer] 1999 panel - Serum or Plasm a aspartate aminotransfe rase [enzymatic activity/vol ume] in serum or plasma 126 U/L low: 10U/Lh igh: 48U/L high Not Available Not Available 04/02/2025 23:10:59 04/01/20 25 04/01/2025 [facility] 1999 panel - Serum or Plasm a protein [mass/volume ] in serum or plasma 8.4 text: 6.4 - 8.3 gm/dL high Not Available Not Available 04/02/2025 23:10:59 04/01/20 25 04/01/2025 [facility] ehens cody metab ol 1999 panel - Serum or Plasm a albumin [mass/volume ] in serum or plasma 4 text: 3.1 - 4.5 gm/dL Not Available Not Available 04/02/2025 23:10:59 04/01/20 25 04/01/[facility]25 [facility] - Serum or Plasm a bilirubin.to krystle [mass/volume ] in serum or plasma 1.1 mg/dL low: 0.2mg/ dLhigh : 1.2mg/ dL Not Available Not Available 04/02/2025 23:10:59 04/01/20 25 04/01/2025 Compr ens cody metab olic 1999 panel - Serum or Plasm a glomerular filtration rate [volume rate/area] in serum, plasma or blood by creatinine-b ased formula (CKD-epi 2020)/1.73 sq M 58 text: >=90 mL/min /1.73 m2 low Estim ated Glome rular Filtr ation Rate (eGFR ) calcu lated using the CKD-E PI Creat inine Equat ion (2020 ), per the Natio nal Kidne y Found ation and Ameri can Socie ty of Nephr ology recom menda tions . Not Available Not Available 04/02/2025 23:10:59 04/01/20 25 04/01/2025 [facility] panel - Serum or Plasm a interpretati on and review of laboratory results Abnorm al Not Available Not Available 23:10:59 04/01/20 25 04/01/2025 CBC W Auto Diffe renti al panel - Blood leukocytes [#/volume] in blood by automated count 15.5 text: 4.0 - 10.7 x10e9/ L high Not Available Not Available 04/02/2025 23:10:59 04/01/20 25 04/01/2025 CBC W Auto Diffe renti al panel - Blood erythrocytes [#/volume] in blood by automated count 3.73 text: 4.30 - 5.80 x10e12 /L low Not Available Not Available 04/02/2025 23:10:59 04/01/20 25 04/01/2025 CBC W Auto Diffe renti al panel - Blood hemoglobin [mass/volume ] in blood 12.7 g/dL low: 13.3g/ dLhigh : 17.5g/ dL low Not Available Not Available 04/02/2025 23:10:59 04/01/20 25 04/01/2025 CBC W Auto Diffe renti al panel - Blood hematocrit [volume fraction] of blood by automated count 36.2 % low: 38.7%h igh: 51.1% low Not Available Not Available 04/02/2025 23:10:59 04/01/20 25 04/01/2025 CBC W Auto Diffe renti al panel - Blood MCV [entitic mean volume] in red blood cells by automated count 97.1 fL low: 80fLhi gh: 98fL Not Available Not Available 04/02/2025 23:10:59 04/01/20 25 04/01/2025 CBC W Auto Diffe renti al panel - Blood MCH [entitic mass] by automated count 34 pg low: 26.7pg high: 33.6pg high Not Available Not Available 04/02/2025 23:10:59 04/01/20 25 04/01/2025 CBC W Auto Diffe renti al panel - Blood MCHC [entitic mass/volume] in red blood cells by automated count 35.1 g/dL low: 31.7g/ dLhigh : 36.3g/ dL Not Available Not Available 04/02/2025 23:10:59 04/01/20 25 04/01/2025 CBC W Auto Diffe renti al panel - Blood erythrocyte [distwidth] in blood by automated count 12.8 % low: 11.3%h igh: 14.8% Not Available Not Available 04/02/2025 23:10:59 04/01/20 25 04/01/2025 CBC W Auto Diffe renti al panel - Blood platelets [#/volume] in blood by automated count 400 text: 150 - 420 x10e9/ L Not Available Not Available 04/02/2025 23:10:59 04/01/20 25 04/01/2025 CBC W Auto Diffe renti al panel - Blood platelet [entitic mean volume] in blood by automated count 9.3 fL low: 7.8fLh igh: 11.4fL Not Available Not Available 04/02/2025 23:10:59 04/01/20 25 04/01/2025 CBC W Auto Diffe renti al panel - Blood neutrophils/ leukocytes in blood by automated count 73.9 % low: 41%hig h: 74% Not Available Not Available 04/02/2025 23:10:59 04/01/20 25 04/01/2025 CBC W Auto Diffe renti al panel - Blood lymphocytes/ leukocytes in blood by automated count 17.6 % low: 17%hig h: 47% Not Available Not Available 04/02/2025 23:10:59 04/01/20 25 04/01/2025 CBC W Auto Diffe renti al panel - Blood monocytes/le ukocytes in blood by automated count 6.8 % low: 3%high : 11% Not Available Not Available 04/02/2025 23:10:59 04/01/20 25 04/01/2025 CBC W Auto Diffe renti al panel - Blood eosinophils/ leukocytes in blood by automated count 0.5 % low: 0%high : 7% Not Available Not Available 04/02/2025 23:10:59 04/01/20 25 04/01/2025 CBC W Auto Diffe renti al panel - Blood basophils/le ukocytes in blood by automated count 0.5 % low: 0%high : 1.6% Not Available Not Available 04/02/2025 23:10:59 04/01/20 25 04/01/2025 CBC W Auto Diffe renti al panel - Blood immature granulocytes /leukocytes in blood by automated count 0.7 % low: 0%high : 1% Not Available Not Available 04/02/2025 23:10:59 04/01/20 25 04/01/2025 CBC W Auto Diffe renti al panel - Blood neutrophils [#/volume] in blood by automated count 11.48 text: 1.60 - 7.50 x10e9/ L high Not Available Not Available 04/02/2025 23:10:59 04/01/20 25 04/01/2025 CBC W Auto Diffe renti al panel - Blood lymphocytes [#/volume] in blood by automated count 2.73 text: 1.00 - 4.40 x10e9/ L Not Available Not Available 04/02/2025 23:10:59 04/01/20 25 04/01/2025 CBC W Auto Diffe renti al panel - Blood monocytes [#/volume] in blood by automated count 1.05 text: 0.15 - 1.00 x10e9/ L high Not Available Not Available 04/02/2025 23:10:59 04/01/20 25 04/01/2025 CBC W Auto Diffe renti al panel - Blood eosinophils [#/volume] in blood 0.07 text: 0.00 - 0.60 x10e9/ L Not Available Not Available 04/02/2025 23:10:59 04/01/20 25 04/01/2025 CBC W Auto Diffe renti al panel - Blood basophils [#/volume] in blood by automated count 0.07 text: 0.00 - 0.13 x10e9/ L Not Available Not Available 04/02/2025 23:10:59 04/01/20 25 04/01/2025 CBC W Auto Diffe renti al panel - Blood interpretati on and review of laboratory results Abnorm al Not Available Not Available 23:10:59 04/02/20 25 04/02/2025 Gluco se [Mass /volu me] in Arter ial blood glucose [mass/volume ] in capillary blood by glucometer 273 mg/dL low: 70mg/d Lhigh: 99mg/d L high Not Available Not Available 04/02/2025 23:10:59 04/02/20 25 04/02/2025 Gluco se [Mass /volu me] in Arter ial blood specimen source identified Venous Not Available Not Available 0 04/02/2025 23:10:59 04/02/20 25 04/02/2025 Gluco se [Mass /volu me] in Arter ial blood interpretati on and review of laboratory results Abnorm al Not Available Not Available 23:10:59 04/02/20 25 04/02/2025 Hemog lobin A1c/H emogl obin. total in Blood hemoglobin A1C/hemoglob in.total in blood 7.8 % high: 5.7% high Not Available Not Available 04/02/2025 23:10:59 04/02/20 25 04/02/2025 Hemog lobin A1c/H emogl obin. total in Blood glucose mean value [mass/volume ] in blood estimated from glycated hemoglobin 177 mg/dL Not Available Not Available 0 04/02/2025 23:10:59 04/02/20 25 04/02/2025 Hemog lobin A1c/H emogl obin. total in Blood HbA1C interpretati on: normal: < 5.7% pre-diabetes : 5.7-6.4% diabetes: equal to or greater than 6.5% test results diagnostic of diabetes should BE repeated for confirmation . treatment target values recommended by ada and other clinical organization s should BE used to evaluate metabolic control in patients. this test should not replace glucose testing for patients with type 1 diabetes, pediatric patients, or women. falsely low HbA1C results may BE observed in patients with clinical conditions that shorten erythrocyte life span or decrease mean erythrocyte age such the presence of unstable hemoglobin variants, elevated hemoglobin F level or other causes of hemolytic anemia. HbA1C may not accurately reflect glycemic control when clinical conditions that affect erythrocyte survival are present. severe iron deficiency anemia may yield falsely high results. hemoglobin A1C assay should not BE used to diagnose or monitor diabetes in patients with malignancy, recent blood transfusion, chronic kidney or liver disease. this method may yield falsely low results when hemoglobin (hbf) exceeds 5% in the specimen. the [employer]ags assay for the measurement of HbA1C IS A national glycohemoglo bin standardizat ion program (ngsp) certified method. HbA1c Interp retati on: Normal : < 5.7% Pre-di abetes : 5.7-6. 4% Diabet es: Equal to or greate r than 6.5% Test result s diagno stic of diabet es should be repeat ed for confir mation . Treatm ent target values recomm ended by ADA and other clinic al organi zation s should be used to evalua te metabo lic contro l in patien ts. This test should not replac e glucos e testin g for patien ts with Type 1 diabet es, pediat dottie patien ts, or pregna nt women. Falsel y low HbA1c result s may be observ ed in patien ts with clinic al condit ions that shorte n erythr ocyte life span or decrea se mean erythr ocyte age such as the presen ce of unstab le hemogl obin varian ts, elevat ed hemogl obin F level or other causes of hemoly tic anemia . HbA1c may not accura tely reflec t glycem ic contro l when clinic al condit ions that affect erythr ocyte surviv al are presen t. Severe Iron defici ency anemia may yield falsel y high result s. Hemogl obin A1c assay should not be used to diagno se or monito r diabet es in patien ts with malign jaja, recent blood transf usion, chroni c kidney or liver diseas e. This method may yield falsel y low result s when hemogl obin (HbF) exceed s 5% in the specim en. The [employer] y assay for the measur ement of HbA1c is a Nation al Glycoh emoglo bin Standa rdizat ion Progra m (NGSP) certif ied method . Not Available Not Available 23:10:59 04/02/20 25 04/02/2025 Hemog lobin A1c/H emogl obin. total in Blood interpretati on and review of laboratory results Abnorm al Not Available Not Available 23:10:59 04/02/20 25 04/02/2025 Gluco se [Mass /volu me] in Arter ial blood glucose [mass/volume ] in capillary blood by glucometer 218 mg/dL low: 70mg/d Lhigh: 99mg/d L high Not Available Not Available 04/02/2025 23:10:59 04/02/20 25 04/02/2025 Gluco se [Mass /volu me] in Arter ial blood specimen source identified Arteri al/Cap illary Not Available Not Available 23:10:59 04/02/20 25 04/02/2025 Gluco se [Mass /volu me] in Arter ial blood interpretati on and review of laboratory results Abnorm al Not Available Not Available 23:10:59 04/02/20 25 04/02/2025 Compr ehens cody metab olic 1999 panel - Serum or Plasm a glucose [mass/volume ] in serum or plasma 221 mg/dL low: 70mg/d Lhigh: 99mg/d L high Not Available Not Available 04/02/2025 23:10:59 04/02/20 25 04/02/2025 Compr ehens cody Gravie ol 1999 panel - Serum or Plasm a sodium [moles/volum e] in serum or plasma 133 mmol/ L low: 136mmo l/Lhig h: 145mmo l/L low Not Available Not Available 04/02/2025 23:10:59 04/02/20 25 04/02/2025 [facility] panel - Serum or Plasm a potassium [moles/volum e] in serum or plasma 2.8 mmol/ L low: 3.5mmo l/Lhig h: 5.1mmo l/L low Not Available Not Available 04/02/2025 23:10:59 04/02/20 25 04/02/2025 [facility] 1999 panel - Serum or Plasm a chloride [moles/volum e] in serum or plasma 89 mmol/ L low: 98mmol /Lhigh : 107mmo l/L low Not Available Not Available 04/02/2025 23:10:59 04/02/20 25 04/02/2025 [facility] 1999 panel - Serum or Plasm a carbon dioxide, total [moles/volum e] in serum or plasma 30 mmol/ L low: 22mmol /Lhigh : 29mmol /L high Not Available Not Available 04/02/2025 23:10:59 04/02/20 25 04/02/2025 [facility] 1999 panel - Serum or Plasm a calcium [mass/volume ] in serum or plasma 8.6 mg/dL low: 8.4mg/ dLhigh : 10.4mg /dL Not Available Not Available 04/02/2025 23:10:59 04/02/20 25 04/02/2025 [facility] 1999 panel - Serum or Plasm a anion gap in blood by calculation 14 mmol/ L low: 6mmol/ Lhigh: 16mmol /L Not Available Not Available 04/02/2025 23:10:59 04/02/20 25 04/02/2025 [facility] 2000 panel - Serum or Plasm a urea nitrogen [mass/volume ] in serum or plasma 12 mg/dL low: 7mg/dL high: 26mg/d L Not Available Not Available 04/02/2025 23:10:59 04/02/20 25 04/02/2025 [facility] [employer] 1999 panel - Serum or Plasm a creatinine [mass/volume ] in serum or plasma 1.2 mg/dL low: 0.72mg /dLhig h: 1.25mg /dL Not Available Not Available 04/02/2025 23:10:59 04/02/20 25 04/02/2025 [facility] [employer] 1999 panel - Serum or Plasm a alkaline phosphatase [enzymatic activity/vol ume] in serum or plasma 133 U/L low: 40U/Lh igh: 150U/L Not Available Not Available 04/02/2025 23:10:59 04/02/20 25 04/02/2025 [facility] [employer] 1999 panel - Serum or Plasm a alanine aminotransfe rase [enzymatic activity/vol ume] in serum or plasma 78 U/L low: 6U/Lhi gh: 57U/L high Not Available Not Available 04/02/2025 23:10:59 04/02/20 25 04/02/2025 [facility] [employer] 1999 panel - Serum or Plasm a aspartate aminotransfe rase [enzymatic activity/vol ume] in serum or plasma 91 U/L low: 10U/Lh igh: 48U/L high Not Available Not Available 04/02/2025 23:10:59 04/02/20 25 04/02/2025 [facility] [employer] 1999 panel - Serum or Plasm a protein [mass/volume ] in serum or plasma 7.2 text: 6.4 - 8.3 gm/dL Not Available Not Available 04/02/2025 23:10:59 04/02/20 25 04/02/2025 [facility] [employer] 1999 panel - Serum or Plasm a albumin [mass/volume ] in serum or plasma 3.4 text: 3.1 - 4.5 gm/dL Not Available Not Available 04/02/2025 23:10:59 04/02/20 25 04/02/2025 [facility] [employer]edia 2000 panel - Serum or Plasm a bilirubin.to krystle [mass/volume ] in serum or plasma 1 mg/dL low: 0.2mg/ dLhigh : 1.2mg/ dL Not Available Not Available 04/02/2025 23:10:59 04/02/20 25 04/02/2025 Compr ehens cody metab olic 1999 panel - Serum or Plasm a glomerular filtration rate [volume rate/area] in serum, plasma or blood by creatinine-b ased formula (CKD-epi 2020)/1.73 sq M 66 text: >=90 mL/min /1.73 m2 low Estim ated Glome rular Filtr ation Rate (eGFR ) calcu lated using the CKD-E PI Creat inine Equat ion (2020 ), per the Natio nal Kidne y [employer] [facility] and [employer] [facility] [employer] recom menda tions . Not Available Not Available 04/02/2025 23:10:59 04/02/2004/02/2025 Compr ehens cody metab olic 1999 panel - Serum or Plasm a interpretati on and review of laboratory results Abnorm al Not Available Not Available 23:10:59 04/19/20 25 04/20/2025 BASIC METAB OLIC PANEL (8) glucose 155 mg/dL 70-99 above high normal Not Available [facility] ([facility]) [address] [place], [address], 04/20/2025 08:33:28 04/19/2004/20/2025 BASIC METAB OLIC PANEL (8) BUN 7 mg/dL 8-27 below low normal Not Available [facility] ([facility]) [address] [place], [address], 04/20/2025 08:33:28 04/19/2004/20/2025 BASIC METAB OLIC PANEL (8) creatinine 0.87 mg/dL 0.76-1 .27 Not Available [facility] ([facility]) [address] [place], [address], 04/20/2025 08:33:28 04/19/20 25 04/20/2025 BASIC METAB OLIC PANEL (8) eGFR 95 mL/mi n/1.7 3 >59 Not Available [facility] ([facility]) [address], [place], [address], 04/20/2025 08:33:28 04/19/2004/20/2025 BASIC METAB OLIC PANEL (8) BUN/creatini ne ratio 8 10-24 below low normal Not Available [facility] ([facility]) [address] [place], [address], 04/20/2025 08:33:28 04/19/2004/20/2025 BASIC METAB OLIC PANEL (8) sodium 140 mmol/ L 134-14 4 Not Available [facility] ([facility]) [address], [place], [address], 04/20/2025 08:33:28 04/19/2004/20/2025 BASIC METAB OLIC PANEL (8) potassium 3.9 mmol/ L 3.5-5. 2 Not Available [facility] ([facility]) [address], [place], [address], 04/20/2025 08:33:28 04/19/2004/20/2025 BASIC METAB OLIC PANEL (8) chloride 101 mmol/ L 96-106 Not Available [facility] ([facility]) [address], [place], [address], 04/20/2025 08:33:28 04/19/2004/20/2025 BASIC METAB OLIC PANEL (8) carbon dioxide, total 25 mmol/ L 20-29 Not Available [facility] ([facility]) [address] [place], [address], 04/20/2025 08:33:28 04/19/2004/20/2025 BASIC METAB OLIC PANEL (8) calcium 9.2 mg/dL 8.6-10 .2 Not Available [facility] ([facility]) [address] [place], [address], 04/20/2025 08:33:28 05/10/2005/11/2025 NT-MT OBNP nt-probnp 118 pg/mL 0-376 The follo wing cut-p oints have been sugge sted for the use of proBN P for the diagn ostic evalu ation of heart failu re (HF) in patie nts with acute dyspn ea: Modal ity Age Optim al Cut (year s) Point ----- ----- ----- ----- ----- ----- ----- ----- ----- ----- ---- Diagn osis (rule in HF) <50 450 pg/mL 50 - 75 900 pg/mL >75 1800 pg/mL Exclu barber (rule out HF) Age indep enden t 300 pg/mL Not Available [facility] ([facility]) [address], [place], [address], 05/11/2025 09:39:46 05/10/2005/10/2025 BASIC METAB OLIC PANEL (8) interpretati on: COMMEN T GFR estim ate at the follo wing level for >or=3 month s is class ified as follo ws: GFR WITH KIDNE Y DAMAG E WITHO UT KIDNE Y DAMAG E >or=9 0 Stage 1 Shyanne l 60-89 Stage 2 Decr eased GFR 30-59 Stage 3 Stage 3 15-29 Stage 4 Stage 4 <15 (or dialy sis) Stage 5 Stage 5 Estim ated GFR will over estim ate true GFR if serum creat inine is risin g as in acute renal failu re and will under estim ate true GFR if serum creat inine is decli savage as in resol ving acute renal failu re. Addit ional infor diana medeiros may be found at [email or web address] org. Not Available [facility] ([facility]) [address], [place], [address], 05/11/2025 09:39:46 05/10/2005/11/2025 BASIC METAB OLIC PANEL (8) glucose 230 mg/dL 70-99 above high normal Not Available [facility] ([facility]) [address] [place], [address], 05/11/2025 09:39:46 05/10/20 25 05/11/2025 BASIC METAB OLIC PANEL (8) BUN 6 mg/dL 8-27 below low normal Not Available [facility] ([facility]) [address] [place], [address], 05/11/2025 09:39:46 05/10/20 25 05/11/2025 BASIC METAB OLIC PANEL (8) creatinine 1.06 mg/dL 0.76-1 .27 Not Available [facility] ([facility]) [address] [place], [address], 05/11/2025 09:39:46 05/10/20 25 05/11/2025 BASIC METAB OLIC PANEL (8) eGFR 77 mL/mi n/1.7 3 >59 Not Available [facility] ([facility]) [address] [place], [address], 05/11/2025 09:39:46 05/10/20 25 05/11/2025 BASIC METAB OLIC PANEL (8) BUN/creatini ne ratio 6 10-24 below low normal Not Available [facility] ([facility]) [address] [place], [address], 05/11/2025 09:39:46 05/10/20 25 05/11/2025 BASIC METAB OLIC PANEL (8) sodium 139 mmol/ L 134-14 4 Not Available [facility] ([facility]) [address] [place], [address], 05/11/2025 09:39:46 05/10/20 25 05/11/2025 BASIC METAB OLIC PANEL (8) potassium 3.8 mmol/ L 3.5-5. 2 Not Available [facility] ([facility]) [address] [place], [address], 05/11/2025 09:39:46 05/10/2005/11/2025 BASIC METAB OLIC PANEL (8) chloride 95 mmol/ L 96-106 below low normal Not Available [facility] ([facility]) [address] [place], [address], 05/11/2025 09:39:46 05/10/2005/11/2025 BASIC METAB OLIC PANEL (8) carbon dioxide, total 28 mmol/ L 20-29 Not Available [facility] ([facility]) [address] [place], [address], 05/11/2025 09:39:46 05/10/2005/11/2025 BASIC METAB OLIC PANEL (8) calcium 9.1 mg/dL 8.6-10 .2 Not Available [facility] ([facility]) [address], [place], [address], 05/11/2025 09:39:46 06/08/2006/09/2025 NT-MT OBNP nt-probnp 114 pg/mL 0-376 The follo wing cut-p oints have been sugge sted for the use of proBN P for the diagn ostic evalu ation of heart failu re (HF) in patie nts with acute dyspn ea: Modal ity Age Optim al Cut (year s) Point ----- ----- ----- ----- ----- ----- ----- ----- ----- ----- ---- Diagn osis (rule in HF) <50 450 pg/mL 50 - 75 900 pg/mL >75 1800 pg/mL Exclu barber (rule out HF) Age indep enden t 300 pg/mL Not Available [facility] ([facility]) [address], [place], [address], 06/09/2025 07:39:59 06/08/2006/08/2025 BASIC METAB OLIC PANEL (8) interpretati on: COMMEN T GFR estim ate at the follo wing level for >or=3 month s is class ified as follo ws: GFR WITH KIDNE Y DAMAG E WITHO UT KIDNE Y DAMAG E >or=9 0 Stage 1 Shyanne l 60-89 Stage 2 Decr eased GFR 30-59 Stage 3 Stage 3 15-29 Stage 4 Stage 4 <15 (or dialy sis) Stage 5 Stage 5 Estim ated GFR will over estim ate true GFR if serum creat inine is risin g as in acute renal failu re and will under estim ate true GFR if serum creat inine is decli savage as in resol ving acute renal failu re. Addit ional infor diana medeiros may be found at [email or web address] org. Not Available [facility] ([facility]) [address] [place], [address], 06/09/2025 07:40:00 06/08/20 25 06/09/2025 BASIC METAB OLIC PANEL (8) glucose 221 mg/dL 70-99 above high normal Not Available [facility] ([facility]) [address] [place], [address], 06/09/2025 07:40:00 06/08/20 25 06/09/2025 BASIC METAB OLIC PANEL (8) BUN 13 mg/dL 8-27 Not Available [facility] ([facility]) [address] [place], [address], 06/09/2025 07:40:00 06/08/20 25 06/09/2025 BASIC METAB OLIC PANEL (8) creatinine 1.18 mg/dL 0.76-1 .27 Not Available [facility] ([facility]) [address] [place], [address], 06/09/2025 07:40:00 06/08/20 25 06/09/2025 BASIC METAB OLIC PANEL (8) eGFR 68 mL/mi n/1.7 3 >59 Not Available [facility] ([facility]) [address], [place], [address], 06/09/2025 07:40:00 06/08/2006/09/2025 BASIC METAB OLIC PANEL (8) BUN/creatini ne ratio 11 10-24 Not Available [facility] ([facility]) [address] [place], [address], 06/09/2025 07:40:00 06/08/20 25 06/09/2025 BASIC METAB OLIC PANEL (8) sodium 135 mmol/ L 134-14 4 Not Available [facility] ([facility]) [address] [place], [address], 06/09/2025 07:40:00 06/08/20 25 06/09/2025 BASIC METAB OLIC PANEL (8) potassium 3.3 mmol/ L 3.5-5. 2 below low normal Not Available [facility] ([facility]) [address], [place], [address], 06/09/2025 07:40:00 06/08/20 25 06/09/2025 BASIC METAB OLIC PANEL (8) chloride 87 mmol/ L 96-106 below low normal Not Available [facility] ([facility]) [address] [place], [address], 06/09/2025 07:40:00 06/08/20 25 06/09/2025 BASIC METAB OLIC PANEL (8) carbon dioxide, total 28 mmol/ L 20-29 Not Available [facility] ([facility]) [address] [place], [address], 06/09/2025 07:40:00 06/08/20 25 06/09/2025 BASIC METAB OLIC PANEL (8) calcium 9.2 mg/dL 8.6-10 .2 Not Available [facility] ([facility]) [address] [place], [address], 06/09/2025 07:40:00 06/09/20 25 06/10/2025 NT-MT OBNP nt-probnp 133 pg/mL 0-376 The follo wing cut-p oints have been sugge sted for the use of proBN P for the diagn ostic evalu ation of heart failu re (HF) in patie nts with acute dyspn ea: Modal ity Age Optim al Cut (year s) Point ----- ----- ----- ----- ----- ----- ----- ----- ----- ----- ---- Diagn osis (rule in HF) <50 450 pg/mL 50 - 75 900 pg/mL >75 1800 pg/mL Exclu barber (rule out HF) Age indep enden t 300 pg/mL Not Available [facility] ([facility]) [address] [place], [address], 06/10/2025 04:36:22 06/09/20 25 06/10/2025 BMP7+ EGFR glucose 216 mg/dL 70-99 above high normal Not Available [facility] ([facility]) [address] [place], [address], 06/10/2025 04:36:22 06/09/20 25 06/10/2025 BMP7+ EGFR BUN 13 mg/dL 8-27 Not Available [facility] ([facility]) [address] [place], [address], 06/10/2025 04:36:22 06/09/20 25 06/10/2025 BMP7+ EGFR creatinine 1.11 mg/dL 0.76-1 .27 Not Available [facility] ([facility]) [address] [place], [address], 06/10/2025 04:36:22 06/09/20 25 06/10/2025 BMP7+ EGFR eGFR 73 mL/mi n/1.7 3 >59 Not Available [facility] ([facility]) [address], [place], [address], 06/10/2025 04:36:22 06/09/20 25 06/10/2025 BMP7+ EGFR sodium 135 mmol/ L 134-14 4 Not Available [facility] ([facility]) [address], [place], [address], 06/10/2025 04:36:22 06/09/20 25 06/10/2025 BMP7+ EGFR potassium 3.2 mmol/ L 3.5-5. 2 below low normal Not Available [facility] ([facility]) [address], [place], [address], 06/10/2025 04:36:22 06/09/20 25 06/10/2025 BMP7+ EGFR chloride 87 mmol/ L 96-106 below low normal Not Available [facility] ([facility]) [address], [place], [address], 06/10/2025 04:36:22 06/09/20 25 06/10/2025 BMP7+ EGFR carbon dioxide, total 30 mmol/ L 20-29 above high normal Not Available [facility] ([facility]) [address], [place], [address], 06/10/2025 04:36:22 06/14/20 25 06/14/2025 HbA1c (hemo globi n A1c), blood HbA1C 8.1 % Not Available In-Office Order Internal Use Only DO Not Attach Compendium DO Not Attach Compendium, Do Not Delete/merge, [id number] 06/14/2025 08:45:27 06/30/2006/30/2025 BASIC METAB OLIC PANEL (8) interpretati on: COMMEN T GFR estim ate at the follo wing level for >or=3 month s is class ified as follo ws: GFR WITH KIDNE Y DAMAG E WITHO UT KIDNE Y DAMAG E >or=9 0 Stage 1 Shyanne l 60-89 Stage 2 Decr eased GFR 30-59 Stage 3 Stage 3 15-29 Stage 4 Stage 4 <15 (or dialy sis) Stage 5 Stage 5 Estim ated GFR will over estim ate true GFR if serum creat inine is risin g as in acute renal failu re and will under estim ate true GFR if serum creat inine is decli savage as in resol ving acute renal failu re. Addit ional infor diana medeiros may be found at [email or web address] org. Not Available [facility] ([facility]) [address] [place], [address], 07/01/2025 08:40:19 06/30/20 25 07/01/2025 BASIC METAB OLIC PANEL (8) glucose 201 mg/dL 70-99 above high normal Not Available [facility] ([facility]) [address] [place], [address], 07/01/2025 08:40:19 06/30/20 25 07/01/2025 BASIC METAB OLIC PANEL (8) BUN 8 mg/dL 8- Not Available [facility] ([facility]) [address] [place], [address], 07/01/2025 08:40:19 06/30/20 25 07/01/2025 BASIC METAB OLIC PANEL (8) creatinine 1.10 mg/dL 0.76-1 .27 Not Available [facility] ([facility]) [address] [place], [address], 07/01/2025 08:40:19 06/30/20 25 07/01/2025 BASIC METAB OLIC PANEL (8) eGFR 74 mL/mi n/1.7 3 >59 Not Available [facility] ([facility]) [address] [place], [address], 07/01/2025 08:40:19 06/30/20 25 07/01/2025 BASIC METAB OLIC PANEL (8) BUN/creatini ne ratio 7 10-24 below low normal Not Available [facility] ([facility]) [address] [place], [address], 07/01/2025 08:40:19 06/30/2007/01/2025 BASIC METAB OLIC PANEL (8) sodium 136 mmol/ L 134-14 4 Not Available [facility] ([facility]) [address] [place], [address], 07/01/2025 08:40:19 06/30/2007/01/2025 BASIC METAB OLIC PANEL (8) potassium 3.7 mmol/ L 3.5-5. 2 Not Available [facility] ([facility]) [address] [place], [address], 07/01/2025 08:40:19 06/30/2007/01/2025 BASIC METAB OLIC PANEL (8) chloride 93 mmol/ L 96-106 below low normal Not Available [facility] ([facility]) [address] [place], [address], 07/01/2025 08:40:19 06/30/2007/01/2025 BASIC METAB OLIC PANEL (8) carbon dioxide, total 25 mmol/ L 20-29 Not Available [facility] ([facility]) [address] [place], [address], 07/01/2025 08:40:19 06/30/2007/01/2025 BASIC METAB OLIC PANEL (8) calcium 9.4 mg/dL 8.6-10 .2 Not Available [facility] ([facility]) [address] [place], [address], 07/01/2025 08:40:19 06/30/2006/30/2025 BASIC METAB OLIC PANEL (8) interpretati on: COMMEN T GFR estim ate at the follo wing level for >or=3 month s is class ified as follo ws: GFR WITH KIDNE Y DAMAG E WITHO UT KIDNE Y DAMAG E >or=9 0 Stage 1 Shyanne l 60-89 Stage 2 Decr eased GFR 30-59 Stage 3 Stage 3 15-29 Stage 4 Stage 4 <15 (or dialy sis) Stage 5 Stage 5 Estim ated GFR will over estim ate true GFR if serum creat inine is risin g as in acute renal failu re and will under estim ate true GFR if serum creat inine is decli savage as in resol ving acute renal failu re. Addit ional infor diana mala may be found at [email or web address] org. Not Available [facility] ([facility]) [address] [place], [address], 07/02/2025 09:36:41 06/30/2007/01/2025 BASIC METAB OLIC PANEL (8) glucose 201 mg/dL 70-99 above high normal Not Available [facility] ([facility]) [address] [place], [address], 07/02/2025 09:36:41 06/30/20 25 07/01/2025 BASIC METAB OLIC PANEL (8) BUN 8 mg/dL 8-27 Not Available [facility] ([facility]) [address] [place], [address], 07/02/2025 09:36:41 06/30/20 25 07/01/2025 BASIC METAB OLIC PANEL (8) creatinine 1.10 mg/dL 0.76-1 .27 Not Available [facility] ([facility]) [address] [place], [address], 07/02/2025 09:36:41 06/30/20 25 07/01/2025 BASIC METAB OLIC PANEL (8) eGFR 74 mL/mi n/1.7 3 >59 Not Available [facility] ([facility]) [address] [place], [address], 07/02/2025 09:36:41 06/30/20 25 07/01/2025 BASIC METAB OLIC PANEL (8) BUN/creatini ne ratio 7 10-24 below low normal Not Available [facility] ([facility]) [address] [place], [address], 07/02/2025 09:36:41 06/30/2007/01/2025 BASIC METAB OLIC PANEL (8) sodium 136 mmol/ L 134-14 4 Not Available [facility] ([facility]) [address] [place], [address], 07/02/2025 09:36:41 06/30/2007/01/2025 BASIC METAB OLIC PANEL (8) potassium 3.7 mmol/ L 3.5-5. 2 Not Available [facility] ([facility]) [address] [place], [address], 07/02/2025 09:36:41 06/30/2007/01/2025 BASIC METAB OLIC PANEL (8) chloride 93 mmol/ L 96-106 below low normal Not Available [facility] ([facility]) [address] [place], [address], 07/02/2025 09:36:41 06/30/2007/01/2025 BASIC METAB OLIC PANEL (8) carbon dioxide, total 25 mmol/ L 20-29 Not Available [facility] ([facility]) [address] [place], [address], 07/02/2025 09:36:41 06/30/2007/01/2025 BASIC METAB OLIC PANEL (8) calcium 9.4 mg/dL 8.6-10 .2 Not Available [facility] ([facility]) [address] [place], [address], 07/02/2025 09:36:41 Result Notes None recorded. Problems Name Problem SNOMED Code Status Onset Date Resolution Date Notes Provider Name and Address Organization Details Recorded Time Type 2 diabetes mellitus without complicatio n 452861906 Active 2023 Patricia Wolfe APN, [employer] Attn: Sanford g,[address] [facility], [place], [address], [facility] 4 10:32:20 Essential hypertensio n 52822030 Active 2023 Patricialesley Wolfe APN, [employer]C Attn: Avelinagalilea shirley,[address] [facility], [place], [address], [facility] 4 10:32:23 Benign prostatic hyperplasia 651109454 Active 2023 Patricialesley Wolfe APN, [employer] Attn: Sanford fern,[address] [facility], [place], [place], [address] [place] [address] 2, [facility] 4 10:35:30 Mixed anxiety and depressive disorder 538039751 Active 2023 Patricialesley Wolfe APN, [employer] Attn: Sanford fern,[address] [facility], [place], [place], [address] [place] [address] 2, [facility] 4 10:35:32 Hyperlipide nelda 66169386 Active 2023 Patricialesley Wolfe APN, [employer] Attn: Sanford fern,[address] [facility], [place], [place], [address] [place] [address] 2, [facility] 4 09:38:48 Neuropathy due to type 2 diabetes mellitus 1214546371708 06 Active 2023 Patricia Wolfe APN, [employer] Attn: Sanford fern,[address] [facility], [place], [address], [facility] 4 09:16:32 Stasis dermatitis 65282185 Active 2024 Patricialesley Wolfe APN, [employer] Attn: Sanfrod fern,[address] [facility], [place], [place], [address] [place] [address] 2, [facility] 5 14:23:50 Problem Notes None recorded. Procedures Surgical History Date Name Laterality Status Provider Name and Address Organization Details Recorded Time 3 cataract surgery completed EVERTON Woods [facility] 11/12/2023 10:20:58 1 Prostate Biopsy completed Gloria Rangel [place] Nayeli [facility] 11/12/2023 10:21:57 9 cataract surgery completed Gloria Juan Carlos DIOGENESErik AL Nayeli [facility], [facility] 11/12/2023 10:20:41 colonoscopy completed Gloria Juan Carlos Erik [facility] 11/12/2023 10:21:30 Imaging Results None recorded. Procedure Notes None recorded. Medical Equipment None Reported. Allergies Allergen ID Allergen Name Allergen Category Reaction Reaction Severity Criticality Documentation Date Start Date Code Code System Note Provider Name and Address Organization Details Recorded Time [id number] lisinopri l medicatio n Not available Not available Not available 04/30/20252015 95938 IGNACIO Torrez [facility] 13:22:23 214522 acetamino phen / oxycodone medicatio n Not available Not available Not available 04/30/2025 [id number] 3 IGNACIO Torrez [facility] 13:22:26 Medications Name Sig Start Date Stop Date Status Note LastModified by Organization Details LastModified Time Prescript ion - Renewal 01/28 completed Not Available Not Available Not Available amoxicill in 500 mg capsule TAKE 1 CAPSULE BY MOUTH EVERY 8 HOURS FOR 10 DAYS 10/26 completed Not Available Not Available Not Available Miralax 17 gram/dose oral powder Take 17 g every day by oral route as needed. 2024 active Not Available Not Available Not Avai lable atorvasta tin 40 mg tablet TAKE 1 TABLET EVERY DAY 2024 active Not Available Not Available Not Avai lable metformin 500 mg tablet Take 1 tablet twice a day by oral route. 04/30 completed stopped 01/28/25 Not Available Not Available Not Available clonidine HCl 0.1 mg tablet Take 1 tablet twice a day by oral route. 06/08 completed Not Available Not Available Not Available torsemide 20 mg tablet Take 1 tablet every day by oral route for 7 days. 07/12 completed Not Available Not Available Not Available azithromy juanis 250 mg tablet TAKE 2 TABLETS BY MOUTH TODAY, THEN TAKE 1 TABLET DAILY FOR 4 DAYS DIRECTED 10/08 completed Not Available Not Available Not Available ibuprofen 800 mg tablet TAKE 1 TABLET BY MOUTH EVERY 8 HOURS . CAN TAKE WITH ADDITION AL TYLENOL 01/28 completed Not Available Not Available Not Available hydrocodo ne 5 mg-acetam inophen 325 mg tablet 11/11 completed Not Available Not Available Not Available spironola ctone 25 mg-hydroc hlorothia zide 25 mg tablet TAKE 1 TABLET EVERY DAY 01/27 completed Not Available Not Available Not Available felodipin e ER 5 mg tablet,ex tended release 24 hr Take 1 tablet every day by oral route. 12/10 completed Not Available Not Available Not Available torsemide 10 mg tablet Take 1 tablet every day by oral route. 2024 active Not Available Not Available Not Avai lable hydralazi ne 25 mg tablet Take 1 tablet twice a day by oral route. 03/23 completed Not Available Not Available Not Available amlodipin e 5 mg tablet Take 1 tablet every day by oral route. 03/15 completed Not Available Not Available Not Available sulfameth oxazole 800 mg-trimet hoprim 160 mg tablet TAKE 1 TABLET BY MOUTH EVERY 12 HOURS FOR 10 DAYS 10/26 completed Not Available Not Available Not Available tramadol 50 mg tablet TAKE 1 TABLET EVERY 6 TO 8 HOURS NEEDED FOR PAIN 06/11 completed Not Available Not Available Not Available triamcino lone acetonide 0.1 % topical cream APPLY THIN COAT TO AFFECTED AREA TWICE A DAY active Not Available Not Available No t Available spironola ctone 25 mg tablet Take 1 tablet every day by oral route. 06/13 completed Not Available Not Available Not Available clonidine HCl 0.2 mg tablet Take one tablet by mouth three times daily. 2024 active Not Available Not Available Not Avai lable prednisol one acetate 1 % eye drops,antwon pension 11/11 completed Not Available Not Available Not Available tamsulosi n 0.4 mg capsule TAKE 1 CAPSULE EVERY DAY 2024 active 1 Tablet Not Available Not Available Not Avai lable amlodipin e 10 mg tablet TAKE 1 TABLET BY MOUTH EVERY DAY 03/15 completed Not Available Not Available Not Available hydralazi ne 100 mg tablet Take 1 tablet 3 times a day by oral route. 2024 active Not Available Not Available Not Avai lable glimepiri de 4 mg tablet TAKE 1 TABLET EVERY DAY 2024 active Not Available Not Available Not Avai lable felodipin e ER 10 mg tablet,ex tended release 24 hr Take 1 tablet every day by oral route. 01/28 completed Not Available Not Available Not Available hydralazi ne 50 mg tablet Take 1 tablet twice a day by oral route. 04/30 completed Not Available Not Available Not Available telmisart an 20 mg tablet Take 1 tablet every day by oral route. 04/30 completed Not Available Not Available Not Available gabapenti n 100 mg capsule Take 1 capsule 3 times a day by oral route. 2024 active Not Available Not Available Not Avai lable Hibiclens 4 % topical liquid Apply 1 applicat ion every other day by topical route. 10/29 completed Not Available Not Available Not Available finasteri de 5 mg tablet TAKE 1 TABLET EVERY DAY 01/26 completed Not Available Not Available Not Available amoxicill in 875 mg-potass ium clavulana te 125 mg tablet TAKE 1 TABLET BY MOUTH EVERY 12 HOURS FOR 7 DAYS 12/10 completed Not Available Not Available Not Available olmesarta n 20 mg tablet Take 1 tablet every day by oral route. 2024 active Not Available Not Available Not Avai lable olmesarta n 40 mg tablet Take 1 tablet every day by oral route. 01/27 completed Not Available Not Available Not Available azithromy juanis 500 mg tablet TAKE 1 TABLET DAILY DIRECTED 04/27 completed Not Available Not Available Not Available escitalop cassidy 20 mg tablet TAKE 1 TABLET EVERY DAY 2024 active Not Available Not Available Not Avai lable hydrochlo rothiazid e 12.5 mg tablet TAKE 1 TABLET BY MOUTH EVERY DAY active Not Available Not Available No t Available potassium chloride ER 20 mEq tablet,ex tended release TAKE 1 (ONE) TABLET BY MOUTH ONCE DAILY FOR 4 DAYS 04/30 completed Not Available Not Available Not Available Kerendia 20 mg tablet TAKE 1 TABLET BY MOUTH EVERY DAY 2024 active Not Available Not Available Not Avai lable Vitals Date Recorded Body height Body mass index (BMI) Body weight Heart rate Oxygen saturation Systolic And Diastolic Provider Name and Address Organization Details Last Updated DateTime 5 179.07 cm 31.7 kg/m2 223272. 69 g 88 /min 96 % 150/82 mm[Hg] Love Cooper RN [facility] 5 09:30:21 Date Recorded Body height Body mass index (BMI) Body weight Heart rate Oxygen saturation Systolic And Diastolic Provider Name and Address Organization Details Last Updated DateTime 5 179.07 cm 30 kg/m2 21984.5 8 g 80 /min 95 % 140/60 mm[Hg] Tiffanie Martinez MA [facility] 5 13:25:28 Date Recorded Body height Body mass index (BMI) Body weight Oxygen saturation Heart rate Systolic And Diastolic Provider Name and Address Organization Details Last Updated DateTime 5 179.07 cm 29.8 kg/m2 51591.9 9 g 98 % 74 /min 140/60 mm[Hg] Tiffanie Martinez MA [facility] 5 09:40:07 Date Recorded Body height Body mass index (BMI) Body weight Respiratory rate Body temperature Oxygen saturation Heart rate Systolic And Diastolic Provider Name and Address Organization Details Last Updated DateTime 5 179.07 cm 30.7 kg/m2 55249.5 4 g 16 /min 97.3 [degF] 99 % 70 /min 162/68 mm[Hg] EVERTON Woods [facility] 5 08:42:00 Date Recorded Body height Body mass index (BMI) Body weight Heart rate Oxygen saturation Systolic And Diastolic Provider Name and Address Organization Details Last Updated DateTime 5 179.07 cm 30.8 kg/m2 09173.1 4 g 78 /min 98 % 130/62 mm[Hg] Tiffanie Martinez MA [facility] 5 09:39:36 Social History Question Answer Notes LastModified by Organizat ion Details LastModified Time Tobacco Smoking Status Former Smoker quit 2013 Gloria Rangel, [facility], [place] - [place] 11/12/2023 10:18:15 Are You Blind Or Do You Have Difficulty Seeing? No Information not available 11/12/2023 What Is Your Level Of Caffeine Consumption? Moderate Coffee Information not available 06/14/2025 In The 14 Days Before Symptom Onset, Have You Had Close Contact With A Laboratory-confir med COVID-19 While That Case Was Ill? No Information not available 11/12/2023 In The 14 Days Before Symptom Onset, Have You Had Close Contact With A Person Who Is Under Investigation For COVID-19 While That Person Was Ill? No Information not available 11/12/2023 Have You Been To An Area Known To Be High Risk For COVID-19? No Information not available 11/12/2023 Are You Deaf Or Do You Have Serious Difficulty Hearing? No Information not available 11/12/2023 What Type Of Diet Are You Following? REGULAR Low Sodium Information not available 12/03/2024 Are There Any Guns Present In Your Home? Yes Information not available 11/12/2023 What Was The Date Of Your Most Recent Tobacco Screening? 07/09/2025 Information not available 07/09/2025 How Many Children Do You Have? 1 Information not available 11/12/2023 What Is Your Relationship Status? Information not available 11/12/2023 Do You Use Your Seat Belt Or Car Seat Routinely? Yes Information not available 11/12/2023 Do You Have Smoke And Carbon Monoxide Detectors In Your Home? No Information not available 11/12/2023 At What Age Did You Start Smoking Tobacco? 22 Information not available 11/12/2023 Are You Passively Exposed To Smoke? Yes Information no t available 11/12/2023 How Much Tobacco Do You Smoke? No Information not available 11/12/2023 Do You Use Sunscreen Routinely? No Information not available 11/12/2023 Has Tobacco Cessation Counseling Been Provided? Yes Information not available 04/27/2024 On What Date Was Tobacco Cessation Counseling Provided? 07/09/2025 Information not available 07/09/2025 How Many Years Have You Smoked Tobacco? 35 Information not available 11/12/2023 How Many Years Have You Used E-cigarettes Or Vape? 11 10/08/24 Information not available 10/08/2024 Sex: Male Functional Status Question Answer Note LastModified by Organizat ion Details LastModified Time Do you use any illicit or recreational drugs? No Information not available 04/27/2024 Do you or have you ever used any other forms of tobacco or nicotine? Yes Information not available 11/12/2023 What is your level of alcohol consumption? Heavy Whiskey every night Information not available 11/12/2023 Do you or have you ever used smokeless tobacco? Never used smokeless tobacco Information not available 11/12/2023 Are you currently employed? Yes Information not available 11/12/2023 Are you able to care for yourself independently? Yes Information not available 11/12/2023 What is your occupation? [employer] Information not available 11/12/2023 Do you or have you ever used e-cigarettes or vape? Current user of electronic cigarettes 6ml. makes own. Information not available 11/12/2023 What is your exercise level? None Information not available 11/12/2023 Mental Status Question Answer Note LastModified by Organization D etails LastModified Time Do you feel stressed (tense, restless, nervous, or anxious, or unable to sleep at night)? [id number] Information not available 11/12/2023 Family History Relationship Description Onset Age of this Age Resolved Age Notes LastModified by Organization Details LastModified Time Mother Myocardial infarction [email or web address] Not available 04/2024 10:15:50 Medical History Condition Response Coronary Artery Disease N High Blood Pressure Y Atrial Fibrillation N Kidney or Bladder Problems N Thyroid Problems N GI Problems N Depression N COPD N Blood Clots N Skin Problems N Eating Disorder N Anemia N Heart Attack (DE) N Anxiety Disorder N Diabetes Y Muscle, Joint, or Bone Problems N Arthritis N Seizures/Epilepsy N Acid Reflux (GERD) Y Cancer N Stroke N Asthma N Allergies N Substance Abuse N High Cholesterol Y Hepatitis N Liver Disease N Headaches N Heart Failure N Osteoporosis N Past Encounters Encounter ID Performer Location Encounter Start Date Encounter Closed Date Diagnosis/Indication Diagnosis SNOMED-CT Code Diagnosis ICD10 Code Diagnosis IMO Codes Diagnosis Note [id number] MD Yoni Gonzalez (Adult Med) [address] [place] [address] 11/12/2023 09:56:47 11/22/2023 15:13:52 Adult health examination 044361097 Z00.01 Encouraged patient to eat well balanced meals, live active lifestyle and attend routine vision/den krystle apts. Obesity 647318164 E66.9 advised low fat, low cholestero l diet, regular exercise and weight reduction. Type 2 winnie betes mellitus without complication 505865393 E11.9 not sure on last lab, will get new lab,cont current meds until we have lab results Essential hypertension 57965385 I10 slight elevation, pt needing refills, does not see cardio, t changes advised Mixed anxi ety and depressive disorder 646773646 F41.8 pt thinks more anxiety and depression /ptsd; stable on med, no SI or HIcont current dose Benign pro static hyperplasia 013071087 N40.0 pt was seeing urology, will get records Screening for malignant neoplasm of colon 086724521 Z12.11 [id number] MD Yoni Gonzalez (Adult Med) [address] [place] [address] 04/27/2024 08:56:45 04/29/2024 12:13:42 Type 2 diabetes mellitus without complication 655248893 E11.9 a1c last was 7.2, today is 6.3cont current plan:glime pride 4 mg qdmetformi n 500 mg biddwp eye exam, proper foot care, diet compliance Essential hypertension 92068840 I10 slight elevation, pt does not see cardio- declined referral at this timediet changes advised Benign pro static hyperplasia 933506284 N40.0 pt was seeing urology, will get records Mixed anxi ety and depressive disorder 149031126 F41.8 pt thinks more anxiety and depression /ptsd; stable on med, no SI or HIcont current dose Hyperlipidemia 65810667 E78.5 cont statin, diet changes advised Obesity 432398191 E66.8 advised low fat, low cholestero l diet, regular exercise and weight reduction. [id number] MD Yoni Gonzalez (Adult Med) [address] [place] [address] 07/27/2024 08:29:47 07/28/2024 16:12:04 Essential hypertension 96674393 I10 elevated today- states he did not yet take his meds, pt does not see cardio- declined referral at this timediet changes advised Benign pro static hyperplasia 032866998 N40.0 pt was seeing urology, will get records Mixed anxi ety and depressive disorder 254394272 F41.8 pt thinks more anxiety and depression /ptsd; stable on med, no SI or HIcont current dose Hyperlipidemia 49665048 E78.5 cont statin, diet changes advised Neuropathy due to type 2 diabetes mellitus 7192178833 65087 E11.40 a1c last was 6.3cont current plan:glime pride 4 mg qdmetformi n 500 mg biddwp eye exam, proper foot care, diet compliance sees podiatry but they did not offer anything- pt asking about compressio n machine for legs; will stat gabapentin 100 mg tid, Screening for malignant neoplasm of colon 254245400 Z12.11 [id number] MD Yoni Gonzalez (Adult Med) [address] [place] [address] 08/11/2024 11:37:57 08/13/2024 11:15:29 Essential hypertension 11385319 I10 elevated today but slightly improved from last visitpt does not see cardio- declined referral at this timediet changes advisedmed s: felodipine ER 5 mg, olmesartan 40 mg qd Obesity 321501597 E66.9 advised pt on proper nutrition and hydration while acutely ill, Acute otitis media 92271 03 H65.03 Manish TM erythema and edema/bulg ingstart amoxadvise d oct flonase [id number] MD Yoni Sutton (Adult Med) [address] [place] [address] 09/15/2024 16:07:37 09/16/2024 17:50:11 Acute serous otitis media of right ear 0149282192 336266 H65.01 continue flonase follow up three weeks [id number] MD Yoni Gonzalez (Adult Med) [address] [place] [address] 10/08/2024 15:37:56 10/26/2024 17:44:21 Essential hypertension 41953935 I10 elevated today stillpt does not see cardio- declined referral last visit, open today to see cardiodiet changes advisedmed s: felodipine ER 5 mg, olmesartan 40 mg qd has been on for years; Peripheral vascular disease 353384127 I73.9 US done a few years ago in [place] but they showed nothing was blocked, pt not sure where exactly, Multiple o pen wounds of lower leg 557625816 S81.801A S81.802A swab from right matthews, bumps with purulent drainage to BLE [id number] Jefry Montero MD [facility] [address] [place] [address] 10/12/2024 16:03:36 10/13/2024 09:01:20 Dysfunction of right eustachian tube 6441216619 058563 H69.91 Continue Flonase follow back if it does not continue to resolve [id number] MD Yoni Gonzalez (Adult Med) [address] [place] [address] 10/26/2024 08:44:30 11/02/2024 13:58:30 Essential hypertension 52201593 I10 still elevated today- has apt with cardio this weekdiet changes advisedpt states he is compliant but his med rec list shows not filled since Apr? not sure if he is taking it, states he is Neuropathy due to type 2 diabetes mellitus 4780191206 22294 E11.40 a1c last was 6.3, today is 6.3cont current plan:glime pride 4 mg qdmetformi n 500 mg biddwp eye exam, proper foot care, diet compliance sees podiatry;- cont gabapentin 100 mg tid Benign pro static hyperplasia 725851345 N40.0 pt was seeing urology, will get records Mixed anxi ety and depressive disorder 119831658 F41.8 pt thinks more anxiety and depression /ptsd; stable on med, no SI or HIcont current dose Hyperlipidemia 87183069 E78.5 cont statin, diet changes advised Obesity 095877657 E66.9 advised pt on proper nutrition and hydration while acutely ill, Venous sta sis edema of bilateral lower limbs 1167684307 7812715 I87.2 leg wound healing now, some edema present, will start low dose diuretic [id number] Gal Gallagher MD [facility] [employer] [facility] [place] [facility] [address] [place] [address] 10/29/2024 15:55:12 11/03/2024 16:13:08 Obesity 940691527 E66.9 Nicotine dependence 5629 4008 F17.200 Essential hypertension 24870607 I10 Resistant hypertensive disorder 1744600573 06717 I1A.0 R94.31 E78.2 R06.00 R60.9 [id number] MD Yoni Gonzalez (Adult Med) [address] [place] [address] 12/03/2024 15:07:20 12/24/2024 08:44:45 Open wound of lower limb 05940935 S81.801D S81.802D 3777514994 BLE with erythema scabbed patchy areas mid matthews, slightly warmedstar t po abxskin care advisedcal l if not improving, or stop in office next week for provider to see legs Plaque psoriasis 9178963 09 L40.0 355877 BLE, apply steroid cream prn Essential hypertension 42011777 I10 still elevated today- has apt with cardio next weekDWP non compliance , increased risk of heart attack, stroke, [id number] Gal Gallagher MD [facility] [employer] [facility] [place] [address] [place] [address] 12/10/2024 15:04:57 12/11/2024 17:41:26 Obese class I 2461461500 87794 E66.811 R06.83 R53.83 7854601335 With exertional fatigue, daytime somnolence , obesity, high pretest probabilit y for ANGELA. Refer to Sleep Medicine for evaluation and management . Smoker 93808487 F17.200 Ongoing nicotine cessation for cardiovasc ular risk reduction reinforced . Essential hypertension 30910373 I10 02475 Blood pressure improved. Still with mild episodes of lower extremity edema secondary to diastolic dysfunctio n. Continue olmesartan 40, felodipine 10. Initiate spironolac tone 25 and HCTZ 25 combinatio n. Check follow-up basic metabolic panel. He is cutting back on his sodium intake and encouraged ongoing sodium limitation and reaching out to us with home blood pressure numbers 1 week after making current change. Mixed hyperlipidemia 267 051600 E78.2 37913 Maintained on atorvastat in 40. LDL 64, HDL 58. TG elevated 205. Dietary modificati ons with limiting carbohydra abiel discussed. [id number] MD Yoni Gonzalez (Adult Med) [address] [place] [address] 01/26/2025 08:43:04 01/27/2025 12:03:02 Essential hypertension 93404258 I10 improved-f ollowing with cardiodiet changes advised Neuropathy due to type 2 diabetes mellitus 3758825654 63863 E11.40 a1c last was 6.3,cont current plan:glime pride 4 mg qdmetformi n 500 mg biddwp eye exam, proper foot care, diet compliance sees podiatry;- cont gabapentin 100 mg tid Benign pro static hyperplasia 608817494 N40.0 pt was seeing urology, will get records Mixed anxi ety and depressive disorder 539943742 F41.8 pt thinks more anxiety and depression /ptsd; stable on med, no SI or HIcont current dose Hyperlipidemia 28412686 E78.5 cont statin, diet changes advised Venous sta sis edema of bilateral lower limbs 6657232176 4711321 I87.2 leg wound healed, some mild edema present,cu rrently on aldactone and hctz combo Obese class I 6095507018 36305 E66.811 5251222333 advised pt on proper nutrition and hydration [id number] [facility] [address] [place] [address] 01/28/2025 09:29:20 01/29/2025 13:21:46 Essential hypertension 46562305 I10 91960 Discontinu e spironolac tone-HCTZ due to hyperkalem ia. Discontinu e olmesartan due to SANTY and hyperkalem ia. Initiate amlodipine 5 mg daily. Encouraged low-sodium diet, ambulatory blood pressure monitoring . Has not started taking amlodipine . Recommende d to reach out to us with home blood pressure readings 70 2 hours after taking amlodipine for further titration. We will need to avoid diuretics or angiotensi n modulating agents at least for the short term given SANTY. Acute kidney injury 1466 9001 N17.9 883041 Refer to Nephrology . Red flag symptoms reviewed. Encouraged hydration at least 64 oz water daily. Discontinu e ibuprofen. Encouraged discussion s with PCP regarding adjusting doses of metformin, glyburide and gabapentin given marked worsening of renal function in the last 3 months. Plans to contact their office today and we will route the note to their attention. Obstructiv e sleep apnea syndrome 71533605 G47.33 835817 Discussed relationsh ip between untreated sleep apnea and increased risk of cardiovasc ular events. Has appointmen t to for sleep study in the near future Obese class I 0426929267 43966 E66.811 [id number] Gal Gallagher MD [facility] [address] [place] [address] 03/15/2025 17:04:24 03/16/2025 11:49:58 Essential hypertension 71683647 I10 05163 Initiate hydralazin e 25 b.i.d.. Discontinu e amlodipine . Will need low-sodium diet, ambulatory blood pressure monitoring and reaching out to care team if blood pressure numbers remain suboptimal (under 100/60, over 140/90) or if symptoms. Complete alcohol cessation reinforced . encouraged to reach out to us with home blood pressure readings in 1 week's time. Obstructiv e sleep apnea syndrome 41454979 G47.33 690889 Again discussed regarding sleep medicine evaluation . Has plans for upcoming home sleep study. Does have high pretest probabilit y for ANGELA and optimizati on of ANGELA we will aid significan amanda improving his blood pressure control Edema of l ower extremity 589652905 R60.0 33794 Recent SANTY. Labs reviewed which show mild hypokalemi a with potassium of 3.4 and resolved renal function. Initiate spironolac tone 25 mg daily after shared decision-m aking. Encouraged hydration at least 64 oz water daily, limb elevation and considerat ion for compressio n stockings. Obese class I 5667170762 17455 E66.811 [id number] Efforts at diet/exerc ise for weight management and cardiovasc ular risk reduction encouraged . [id number] Gal Gallagher MD [facility] [employer] [facility] [place] [address] [place] [address] 04/30/2025 09:14:14 05/03/2025 11:43:33 Obese class I 5641017593 52785 E66.811 E66.3 6592656234 Working on diet/exerc ise with good results Essential hypertension 19246915 I10 25538 change add antiplatel et therapy to hydralazin e 100 b.i.d.. on clonidine 0.2 to be taken up to twice a day PRN. currently hold telmisarta n which he is not taking until he follows up with Nephrology . No beta renuka due to relative bradycardi a. Acute on c hronic diastolic heart failure 399694892 I50.33 426486 Previously was supposed to be on torsemide 20 b.i.d. but currently not taking any diuretics. Resume at 10 mg daily. Encouraged low-sodium diet, heart failure precaution s. Check proBNP and basic metabolic panel in 10 days and route results to patient's nephrology team also. Obstructiv e sleep apnea syndrome 61085334 G47.33 274017 Has done sleep study. Plans to start CPAP within the next 10 days. Expect improvemen t in his blood pressure once ANGELA optimized. Plan routine cardiology follow-up 4 weeks and PRN [id number] Gal Gallagher MD [facility] [employer] [facility] [place] [address] [place] [address] 05/31/2025 13:20:32 06/17/2025 11:22:19 Obese class I 8987582545 61048 E66.811 E66.3 6105406112 Working on diet/exerc ise with good results Essential hypertension 68421973 I10 96931 Chronic ki dney disease stage 3A 389729470 N18.31 71919286 Refer to Nephrology . Red flag symptoms reviewed. Encouraged hydration at least 64 oz water daily. Discontinu e ibuprofen. Encouraged discussion s with PCP regarding adjusting doses of metformin, glyburide and gabapentin given marked worsening of renal function in the last 3 months. Plans to contact their office today and we will route the note to their attention. Acute on c hronic diastolic heart failure 052697517 I50.33 652876 Previously was supposed to be on torsemide 20 b.i.d. but currently not taking any diuretics. Resume at 10 mg daily. Encouraged low-sodium diet, heart failure precaution s. Check proBNP and basic metabolic panel in 10 days and route results to patient's nephrology team also. [id number] Gal Gallagher MD [facility] [address] [place] [address] 06/11/2025 09:15:39 06/15/2025 12:03:38 Essential hypertension 47736154 I10 09945 Continue clonidine 0.2 t.i.d., hydralazin e 100 t.i.d., not on a beta renuka to relative bradycardi a. ARB previously discontinu ed during episodes of SANTY and we will plan to reinitiate based on follow-up renal function in future visits. Encouraged hydration at least 64 oz of water daily, reaching out to us with home blood pressure readings in 1 week's time in ER precaution s reviewed. Low-sodium diet also discussed. Obstructiv e sleep apnea syndrome 85008330 G47.33 815889 Recently started using CPAP. Anticipate improvemen t in blood pressure with optimizati on of ANGELA. Acute on c hronic diastolic heart failure 768961577 I50.33 197218 Given hypokalemi a and improvemen t in volume status, change torsemide from 20 mg b.i.d. to 20 mg daily. Intolerant to spironolac tone with breast tenderness . We will discontinu e initiate currently at 20 mg daily. Side effect profile discussed. Obtain basic metabolic panel in 3 weeks. Follow-up July 05 as previously scheduled. On behalf of the Cardiovasc ular Services at [facility] , we appreciate the opportunit y to participat e in the care of your patient. Please feel free to reach out to us for any questions regarding your patient's cardiac care. Gal Gallagher MD, [facility] , Cardiology Ph: [phone]: [phone] MD Yoni Gonzalez (Adult Med) [address] [place] [address] 06/14/2025 08:28:37 06/18/2025 16:37:27 Essential hypertension 93137495 I10 cont following with cardiodiet changes advised Neuropathy due to type 2 diabetes mellitus 1432823404 63175 E11.40 a1c last was 6.3, 5: 7.8 at [facility] 5: 8.1 cont current plan:glime pride 4 mg qdmetformi n 500 mg biddwp eye exam, proper foot care, diet compliance sees podiatry;- cont gabapentin 100 mg tid Mixed anxi ety and depressive disorder 457044162 F41.8 pt thinks more anxiety and depression /ptsd; stable on med, no SI or HIcont current dose Hyperlipidemia 92349810 E78.5 cont statin, diet changes advised Venous sta sis edema of bilateral lower limbs 7202804250 9034925 I87.2 leg wound healed, some mild edema present,cu rrently on torsemide 20 mg Obese class I 0631042990 29064 E66.811 1349678456 advised pt on proper nutrition and hydration Chronic constipation 236 370942 K59.09 771297 cont metamucil and will add miralax prn [id number] Gal Gallagher MD [facility] [place] [address] [place] [address] 07/09/2025 09:24:04 07/12/2025 15:21:44 Acute on chronic diastolic heart failure 920863797 I50.33 Maintained on Kerendia 20 mg daily. Maintained on torsemide 20 mg daily for loop diuretic which we will continue. Reinforced low-sodium diet. In light of exertional dyspnea, abnormal EKG with diastolic heart failure discussed options of ischemia evaluation . After shared decision-m aking obtain pharmacolo gi nuclear stress test given inability to exercise secondary to his orthopedic limitation s with lower extremity venous stasis changes and back pain. ER precaution s in the interim discussed. Obese class I 4500473738 38031 E66.811 E66.3 [id number] Lifestyle instructio ns discussed Chronic ki dney disease stage 3B 188927167 N18.32 4106259225 Reinforced need to hydrate at least 64 oz water daily which he is more compliant with now. Check follow-up labs including renal/live r function panel. Labs 06/30/2025 reviewed with EGFR 74, potassium 3.7. Essential hypertension [id number] I10 [id number] Continue hydralazin e 100 t.i.d., clonidine 0.2 t.i.d.. Not on a beta renuka due to relative bradycardi a and exertional fatigue. Not on amlodipine due to lower extremity edema. We will reinitiate olmesartan at 20 mg daily given normalizat ion of renal function. Reinforced need for hydration. Check follow-up labs as above. Will need low-sodium diet, ambulatory blood pressure monitoring and reaching out to care team if blood pressure numbers remain suboptimal (under 100/60, over 140/90) or if symptoms. Type 2 winnie betes mellitus [id number] E11.22 N18.32 [id number] A1c 8.1 in June 2025. Following with PCP. We will consider Jardiance from a cardiovasc ular standpoint based on follow-up renal function. Mixed hyperlipidemia 267 [id number] E78.2 07072 Continue atorvastat in 40 mg daily. Last labs from 10/26/2024 show LDL 64, HDL 58, TG 205. Ongoing lifestyle modificati ons reinforced . We will request a routine follow-up in 3 months for ongoing monitoring of above-ment ioned cardiac conditions . Patient aware to contact us sooner if any cardiac issues arise. On behalf of the Cardiovasc ular Services at [facility] , we appreciate the opportunit y to participat e in the care of your patient. Please feel free to reach out to us for any questions regarding your patient's cardiac care. Gal Gallagher MD, [facility] , Cardiology Ph: [phone]: Fax: [phone] On behalf of the Cardiovasc ular Services at [facility] , we appreciate the opportunit y to participat e in the care of your patient. Please feel free to reach out to us for any questions regarding your patient's cardiac care. Gal Gallagher MD, [facility] , Cardiology Ph: [phone]: Health Concerns Section Related Observation LastModified by Organization Detai ls LastModified Time None Recorded Concern Status LastModified by Organization Details LastModified Time None Recorded Advance Directives Directive None Recorded Payers Insurance Date Sequence Insurance Name Policy Number Policy Conde Covered Member ID Conde Member ID Guarantor Name 07/09/2025 [place]: [facility] Jamar Mesa [id number] Jamar Mesa 07/09/2025 [place]ARE [place]: [facility] Jamar Mesa [id number] Jamar Mesa 07/12/2025 2 [employer] [facility] (MEDICARE SUPPLEMENT) Jamar Mesa [id number] Jamar Mesa 07/09/2025 1 [place] Jamar Mesa [id number] Jamar Mesa Notes Date Note Type Note Provider Name and Address Organization Details Recorded Time 04/30/2025 text/html ROS as noted in the HPI 69-year-old with resistant hypertension, HFpEF, CKD stage 4, Type 2 diabetes, obesity, mixed hyperlipidemia and history of nicotine use presents for follow-up. Interval history:Recently hospitalized at [facility] with constipation, SANTY, urinary retention. Has seen Nephrology, Dr. Diallo recently and records are not available for my review. Does notice increasing lower extremity edema and mild dyspnea on exertion. He is not currently taking diuretics, was prescribed telmisartan 20 which he is not taking. Taking hydralazine 50 b.i.d.. Has not required p.r.n. clonidine but is not checking his blood pressures regularly at home. No chest pain or pressure. Mild increase in dyspnea secondary to volume symptoms. Compliant with low-sodium diet. Cardiac diagnostics:Twelve lead EKG 10/29/2024: Sinus rhythm with poor septal R-wave progression suggestive of lead placement versus age-indeterminate anteroseptal infarct. Transthoracic echocardiogram, [facility], 11/12/2024: LVEF 66%, trace mitral regurgitation, mild left atrial enlargement, no pulmonary hypertension Gal Gallagher MD Attn: [address] [place], [address], [facility] 04/30/2025 09:52:44 06/11/2025 text/html ROS as noted in the HPI 69-year-old with resistant hypertension, HFpEF, CKD stage 4, Type 2 diabetes, obesity, mixed hyperlipidemia and history of nicotine use presents for follow-up. Interval history:home blood pressure readings are occasionally up to 100. Brought his machine to the office today and it is reading at least 20 points over our office machine. No chest pain or pressure. Lower extremity edema improved. Labs with hypokalemia. Reports breast tenderness. No significant exertional fatigue. Has recently started using CPAP. Cardiac diagnostics:Twelve lead EKG 10/29/2024: Sinus rhythm with poor septal R-wave progression suggestive of lead placement versus age-indeterminate anteroseptal infarct. Transthoracic echocardiogram, [facility], 11/12/2024: LVEF 66%, trace mitral regurgitation, mild left atrial enlargement, no pulmonary hypertension Gal Gallagher MD Attn: [address] [place], [address], [facility] 06/13/2025 22:33:34 06/14/2025 text/html Pt here for a 3 month follow-up which has now been 5 months: pt c/o constipation- otc metamucil possible kidney stones- dysuria and has to push harder to relief himself and saw blood. states it was very weeks ago and not currently having any sx but he wanted to let provider know; neuropathy-gabapenti n 100 mg tid, helping htn- denies cp or sob, sees cardio now T2DM- med compliant, not always diet compliant Mood- denies SI or HI, stable, sleep good, Patricia Wolfe APN, [employer] Attn: [address] , [place], [address], [facility] 06/16/2025 18:14:42 07/09/2025 text/html ROS as noted in the HPI 69-year-old with resistant hypertension, HFpEF, CKD stage 4, Type 2 diabetes, obesity, mixed hyperlipidemia and history of nicotine use presents for follow-up. Interval history:patient reports home blood pressures are in the 150s systolic. He has not had any chest pain or pressure but reports exertional dyspnea with NYHA class 3 symptoms. He denies any palpitations, presyncope or syncope. He has lower extremity venous stasis changes which are stable and his lower extremity edema stable on current dose of torsemide and current EF. He has completely stopped taking nonsteroidals for joint pain and is hydrating adequately now. Cardiac diagnostics:Twelve lead EKG 10/29/2024: Sinus rhythm with poor septal R-wave progression suggestive of lead placement versus age-indeterminate anteroseptal infarct. Transthoracic echocardiogram, [facility], 11/12/2024: LVEF 66%, trace mitral regurgitation, mild left atrial enlargement, no pulmonary hypertension Gal Gallagher MD Attn: [address] [facility], [place], [address], [facility] 07/09/2025 14:50:50
--- OUTSIDE RECORDS SUMMARY | 2025-07-25 08:29 | XMS_ITS | Clinical Summary ---
Author Organization [facility] Address [address] [place] [address] Care Team Providers Care Treatment Plant Operator Name Role Phone Negrito Maria MD Unavailable Unavailable Sandra Isaacs ECDIS N NAVIGATION OPERATOR-CAREER AGENT Unavailable [phone] Patricia Valentine ECDIS N NAVIGATION OPERATOR-CAREER AGENT Primary Care Provider [phone] Source Comments [facility],non-owned Affiliates and Associated Physician Practices is amultiple site organization consisting of ambulatory clinics and hospital sitesin [place], [place], [place] and [place]. This disclosure is being madepursuant to the Care Everywhere program and may not contain all information available regarding this patient. Last updated 18.[facility] Allergies No known active allergies Medications * Be aware that medications may not be up to date on this document. Alwaysverify current medications with the patient. Ranitidine HCl (RANITIDINE ACID STEEL DIE ENGRAVER PO)Indications: Abnormal laboratory test result Take by mouth. Activ e multivitamin daily (THERAGRAN) tablet Take 1 Tab by mouth daily with food. Active simvastatin (ZOCOR) 40 MG tablet TAKE ONE TABLET BY MOUTH AT BEDTIME 30 Tab 2 4 Active Additional Information Patient not taking.Reported on 10/16/2018 escitalopram (LEXAPRO) 10 MG tablet TAKE ONE TABLET BY MOUTH EVERY DAY 30 Tab 0 5 Active losartan (COZAAR) 100 MG tablet Take 100 mg by mouth once daily Active metFORMIN (GLUCOPHAGE) 500 MG tablet Take 500 mg by mouth 2 times daily with morning and evening meal Active finasteride (PROSCAR) 5 MG tablet Take 5 mg by mouth once daily Active atorvastatin (LIPITOR) 40 MG tablet Take 40 mg by mouth at bedtime Active tamsulosin (FLOMAX) 0.4 MG capsule Take 0.4 mg by mouth once daily Take 30 minutes after a meal at the same time each day. Active Active Problems Problem Noted Date Diagnosed Date Urinary retention 04/01/2025 Hyponatremia 04/01/2025 Acute renal insufficiency 04/01/2025 Pneumonia 02/06/2013 Depression 08/27/2011 Hyperlipidemia 05/03/2011 Near syncope 05/03/2011 Lump or mass in breast 06/07/2010 Erectile dysfunction 03/22/2010 Otitis media 11/07/2009 HTN (hypertension) 10/14/2009 Pain in joint, shoulder region 01/02/2008 Overview (01/02/2008): Rt. Shoulder Left hand pain 12/11/2007 Resolved Problems Problem Noted Date Diagnosed Date Resolved Date Lipoma 10/20/2010 10/30/2010 Overview (10/20/2010): right antecubital fossa Lump of skin 09/29/2010 10/30/2010 Overview (09/29/2010): right antecubital fossa Family History Medical History Relation Name Comments Heart Failure Mother Relation Name Status Comments Father Unknown Mother (Age 60s) Sister Alive Social History Tobacco Use Types Packs/Day Years Used Date Smoking Tobacco: Former Cigarettes 1 30 0 01/04/1983 - 01/04/2013 Smokeless Tobacco: Never Tobacco Cessation:Counseling Given: Not Answered Comments:etq Alcohol Use Standard Drinks/Week Comments Yes 12.5 (1 standard drink = 0.6 oz pure alcohol) encouraged to cut down AUDIT-C Answer Date Recorded Q1: How often do you have a drink containing alcohol? 4 or more times a week 04/01/2025 Q2: How many drinks containi ng alcohol do you have on a typical day when you are drinking? 3 or 4 Q3: How often do you have si x or more drinks on one occasion? Monthly 04/01/2025 Overall Financial Resource Strain (CARDIA) Answe r Date Recorded How hard is it for you to pa y for the very basics like food, housing, medical care, and heating? Not hard at all 04/01/2025 [facility] - Occupational Stress Questionnaire Answer Date Recorded Do you feel stress - tense, restless, nervous, or anxious, or unable to sleep at night because your mind is troubled all the time - these days? Not at all 04/01/2025 Hunger Vital Sign Answer Date Recorded Within the past 12 months, y ou worried that your food would run out before you got the money to buy more. Never true 04/01/20 25 Within the past 12 months, t he food you bought just didn't last and you didn't have money to get more. Never true 04/01/2025 PRAPARE - Transportation Answer Date Re corded Lack of Transportation (Medical) Not on file 04/01/2025 In the past 12 months, has l ack of transportation kept you from meetings, work, or from getting things needed for daily living? No 04/01/2025 Housing Stability Vital Sign Answer Lai e Recorded In the last 12 months, was t here a time when you were not able to pay the mortgage or rent on time? No 04/01/2025 In the past 12 months, how m any times have you moved where you were living? 0 04/01/2025 At any time in the past 12 m [facility], were you homeless or living in a care home (including now)? 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 Not on file Not on file Not on file Last Filed Vital Signs Vital Sign Reading Time Taken Comments Blood Pressure 140/66 04/02/2025 11:26 AM CDT Pulse 73 04/02/2025 11:26 AM CDT Temperature 36.3 C (97.3 F) 04/02/2025 11:26 AM CDT Respiratory Rate 18 04/02/2025 11:26 AM CDT Oxygen Saturation 96% 04/02/2025 11:26 AM CDT Inhaled Oxygen Concentration - - Weight 96.2 kg (212 lb) 04/01/2025 8:50 PM CDT Height 177.8 cm (5' 10) 04/01/2025 8:50 PM CDT Body Mass Index 30.42 04/01/2025 8:50 PM CDT Plan of Treatment Health Maintenance Due Date Last Done Comments COLOGUARD (AGES 45-75) - COL ON CA SCREENING [address] COLONOGRAPHY - COLON CA SCREENING 1957 FIT - COLON CA SCREENING 1957 FLEX SIG - COLON CA SCREENING 1957 MEDICARE AWV 12 MONTHS 1957 HEPATITIS C SCREENING 11/22/1975 DTAP/TDAP/TD VACCINES (1 - Tdap) 1976 PNEUMOCOCCAL VACCINE 50+ (1 of 2 - PCV) 1976 LUNG CANCER SCREENING 11/27/2007 ZOSTER VACCINE (1 of 2) 11/27/2007 COLONOSCOPY - COLON CA SCREENING 07/17/2016 07/17/20 Colorectal Cancer Screening 07/17/2016 AAA SCREENING 2022 DEPRESSION SCREENING 08/05/2024 COVID-19 VACCINE (1 - 2024-2 6 season) 2025 INFLUENZA VACCINE (#1) 2025 Respiratory Syncytial Virus (RSV) Vaccine Pt: or over 60 yrs (1 - 1-dose 75+ series) 2032 HEPATITIS B VACCINE Aged Out No longe r eligible based on patient's age to complete this topic HIB VACCINE Aged Out No longer eligi ble based on patient's age to complete this topic HPV VACCINE Aged Out No longer eligi ble based on patient's age to complete this topic MENINGOCOCCAL (Group B) VACC INE SHARED DECISION-MAKING Aged Out No longer eligibl e based on patient's age to complete this topic MENINGOCOCCAL GROUPS A/C/Y/W VACCINE Aged Out No longer eligible b ased on patient's age to complete this topic Insurance MEDICARE [employer] [facility] [place] [phone] Advance Directives * Full Code (Latest Code Status on File) Date Activated Date Inactivated Comments 04/02/2025 2:42 AM 04/02/2025 6:15 PM Care Teams Treatment Plant Operator Relationship Specialty Start Date End Date Patricia Valentine APRN-CAREER AGENT [address] [place] [address] PCP - General Nurse Practitioner Family 03/11/25 Negrito Maria MD Oncology 07/25/11 Sandra Isaacs APRN-CAREER AGENT [facility] [facility] [address] [place] [address] Nurse Practitioner 07/25/11
--- OUTSIDE RECORDS SUMMARY | 2025-07-25 08:29 | XMS_ITS | Continuity of Care Document ---
Author Organization [place] - FOR[facility]LY [facility], [facility] Address [address] [place] [address] Care Team Providers Care Tire Duster Name Role Phone PATRICIA WOLFE Primary Care Provider Assessment No assessment recorded. Plan of Treatment Reminders Order Date Submit Date Provider Last Modified By Organization Details Last Modified Time Details Appointments ANY 2025 07:45A M Patricia Wolfe APN, [employer] Not available Not available Not available ANY 2025 08:15A M Gal Gallagher MD Not available Not available Not available Lab BMP, serum or plasma 2024 025 [facility], [address] [place] [address], [address], 06/09/2025 07:40:00 pro BNP (pro B-type natriuret ic peptide), serum or plasma 2024 025 [facility], [address] [place] [address], [place], [address], 06/09/2025 07:39:59 Referral None recorded. Procedures None recorded. Surgeries None recorded. Imaging None recorded. Medication Orders clonidine HCl 0.1 mg tablet 2024 [facility], [address] [place] [address], [place], [address], 06/08/2025 09:58:22 torsemide 20 mg tablet 2024 025 [facility], [address], [place], [address], 07/12/2025 14:43:14 Patient TargetsNo targets recorded. Patient Instructions Encounter Date Encounter Id Patient Instructions Last Modified By Organization Details Last Modified Time 05/31/2025 [id number] A healthy lifestyle: care instructions [email or web address] Not available 05/31/2025 13:31:17 - Start clonidin [...] your kidney function in 1 week's time [email or web address] Not available 05/31/2025 13:31:37 Reason for Referral None Reported. Results Created Date Observation Date Name Description Value Unit Range Abnormal Flag Note LastModifiedBy Organization Detail LastModifiedTime 05/10/2005/11/2025 NT-MS OBNP nt-probnp 118 pg/mL 0-376 The follo [...] enden t 300 pg/mL Not Available [facility] ([facility]) [address], [place], [address], 05/11/2025 09:39:46 05/10/2005/10/2025 BASIC METAB OLIC PANEL [...] acute renal failu re. Addit ional infor matrenate n may be found at [email or web address] org. Not Available [facility] ([facility]) [address] [place], [address], 05/11/2025 09:39:46 05/10/2005/11/2025 BASIC METAB OLIC PANEL (8) glucose 230 mg/dL 70-99 above high normal Not Available [facility] ([facility]) [address] [place], [address], 05/11/2025 09:39:46 05/10/2005/11/2025 BASIC METAB OLIC PANEL (8) BUN 6 mg/dL 8-27 below low normal Not Available [facility] ([facility]) [address] [place], [address], 05/11/2025 09:39:46 05/10/2005/11/2025 BASIC METAB OLIC PANEL (8) creatinine 1.06 mg/dL 0.76-1 .27 Not Available [facility] ([facility]) [address] [place], [address], 05/11/2025 09:39:46 05/10/2005/11/2025 BASIC METAB OLIC PANEL (8) eGFR 77 mL/mi n/1.7 3 >59 Not Available [facility] ([facility]) [address] [place], [address], 05/11/2025 09:39:46 05/10/20 25 05/11/2025 BASIC METAB OLIC PANEL (8) BUN/creatini ne ratio 6 10-24 below low normal Not Available [facility] ([facility]) [address] [place], [address], 05/11/2025 09:39:46 05/10/2005/11/2025 BASIC METAB OLIC PANEL (8) sodium 139 mmol/ L 134-14 4 Not Available [facility] ([facility]) [address] [place], [address], 05/11/2025 09:39:46 05/10/20 25 05/11/2025 BASIC METAB OLIC PANEL (8) potassium 3.8 mmol/ L 3.5-5. 2 Not Available [facility] ([facility]) [address] [place], [address], 05/11/2025 09:39:46 05/10/20 25 05/11/2025 BASIC METAB OLIC PANEL (8) chloride 95 mmol/ L 96-106 below low normal Not Available [facility] ([facility]) [address] [place], [address], 05/11/2025 09:39:46 05/10/20 25 05/11/2025 BASIC METAB OLIC PANEL (8) carbon dioxide, total 28 mmol/ L 20-29 Not Available [facility] ([facility]) [address] [place], [address], 05/11/2025 09:39:46 05/10/20 25 05/11/2025 BASIC METAB OLIC PANEL (8) calcium 9.1 mg/dL 8.6-10 .2 Not Available [facility] ([facility]) [address] [place], [address], 05/11/2025 09:39:46 06/08/20 25 06/09/2025 NT-MS OBNP nt-probnp 114 pg/mL 0-376 The follo [...] enden t 300 pg/mL Not Available [facility] ([facility]) [address] [place], [address], 06/09/2025 07:39:59 06/08/2006/08/2025 BASIC METAB OLIC PANEL [...] renal failu re. Addit ional infor diana n may be found at [email or web address] [email or web address] org. Not Available [facility] ([facility]) [address] [place], [address], 06/09/2025 07:40:00 06/08/20 25 06/09/2025 BASIC METAB OLIC PANEL (8) glucose 221 mg/dL 70-99 above high normal Not Available [facility] ([facility]) [address] [facility] [place], [address], 06/09/2025 07:40:00 06/08/20 25 06/09/2025 BASIC METAB OLIC PANEL (8) BUN 13 mg/dL 8-27 Not Available [facility] ([facility]) [address] [place], [address], 06/09/2025 07:40:00 06/08/20 25 06/09/2025 BASIC METAB OLIC PANEL (8) creatinine 1.18 mg/dL 0.76-1 .27 Not Available [facility] ([facility]) [address] [facility] [place], [address], 06/09/2025 07:40:00 06/08/2006/09/2025 BASIC METAB OLIC PANEL (8) eGFR 68 mL/mi n/1.7 3 >59 Not Available [facility] ([facility]) [address] [facility], [place], [address], 06/09/2025 07:40:00 06/08/20 25 06/09/2025 BASIC METAB OLIC PANEL (8) BUN/creatini ne ratio 11 10-24 Not Available [facility] ([facility]) [address] [facility] [place], [address], 06/09/2025 07:40:00 06/08/20 25 06/09/2025 BASIC METAB OLIC PANEL (8) sodium 135 mmol/ L 134-14 4 Not Available [facility] ([facility]) [address] [facility] [place], [address], 06/09/2025 07:40:00 06/08/2006/09/2025 BASIC METAB OLIC PANEL (8) potassium 3.3 mmol/ L 3.5-5. 2 below low normal Not Available [facility] ([facility]) [address] [facility] [place], [address], 06/09/2025 07:40:00 06/08/20 25 06/09/2025 BASIC METAB OLIC PANEL (8) chloride 87 mmol/ L 96-106 below low normal Not Available [facility] ([facility]) [address] [facility], [place], [address], 06/09/2025 07:40:00 06/08/20 25 06/09/2025 BASIC METAB OLIC PANEL (8) carbon dioxide, total 28 mmol/ L 20-29 Not Available [facility] ([facility]) [address] [facility], [place], [address], 06/09/2025 07:40:00 06/08/20 25 06/09/2025 BASIC METAB OLIC PANEL (8) calcium 9.2 mg/dL 8.6-10 .2 Not Available [facility] ([facility]) [address] [facility], [place], [address], 06/09/2025 07:40:00 Result Notes None recorded. Problems Name Problem SNOMED Code Status Onset Date Resolution Date Notes Provider Name and Address Organization Details Recorded Time Type 2 diabetes mellitus without complicatio n 132128976 Active 2023 Patricia Wolfe APN, FNP-C Attn: Sanford shirley,[address] [facility], [place], [address], [facility] 4 10:32:20 Essential hypertensio n 87142787 Active 2023 Patricia Wolfe APN, FNP-C Attn: Sanford shirley,[address] [place], [address], [facility] - [facility] 4 10:32:23 Benign prostatic hyperplasia 206991665 Active 2023 Patricia Wolfe APN, FNP-C Attn: Sanford shirley,[address] [facility], [place], [address], [facility] - [facility] 4 10:35:30 Mixed anxiety and depressive disorder 520301143 Active 2023 Patricia Wolfe APN, FNP-C Attn: Sanford shirley,[address], [place], [address], [facility] - [facility] 4 10:35:32 Hyperlipide nelda 84909870 Active 2023 Patricia Wolfe, PHYSICS PROFESSOR, [employer]-C Attn: Sanford shirley,[address], [place], [address], [facility] - [facility] 4 09:38:48 Neuropathy due to type 2 diabetes mellitus 3856435187408 06 Active 2023 Patricialesley Wolfe PHYSICS PROFESSOR, [employer]-C Attn: Sanford shirley,[address], [place], [address], [facility] - [facility] 4 09:16:32 Stasis dermatitis 32644253 Active 2024 Patricia Serge PHYSICS PROFESSOR, [employer]-C Attn: [facility] shirley,[address] [facility], [place], [address], [facility] - [facility] 5 14:23:50 Problem Notes None recorded. Procedures Surgical History Date Name Laterality Status Provider Name and Address Organization Details Recorded Time 3 cataract surgery completed EVERTON Woods [facility] 11/12/2023 10:20:58 1 Prostate Biopsy completed Gloria Rangel Erik [facility] 11/12/2023 10:21:57 9 cataract surgery completed Gloria Rangel Erik [facility] 11/12/2023 10:20:41 colonoscopy completed Gloria Rangel Erik [facility] 11/12/2023 10:21:30 Imaging Results None recorded. Procedure Notes None recorded. Medical Equipment None Reported. Allergies Allergen ID Allergen Name Allergen Category Reaction Reaction Severity Criticality Documentation Date Start Date Code Code System Note Provider Name and Address Organization Details Recorded Time 19691210 lisinopri l medicatio n Not available Not available Not available 04/30/20252015 73222 RxNorm IGNACIO Abdalla, [facility] 5 13:22:23 19691211 acetamino phen / oxycodone medicatio n Not available Not available Not available 04/30/2025 28014 3 RxNorm Tiffanie Martinez MA null, [place] - [place] 13:22:26 Medications Name Sig Start Date Stop [...] 2024 active Not Available Not Available Not Daniel cobian Vitals Date Recorded Body height Body mass index (BMI) Body weight Heart rate Oxygen saturation Systolic And Diastolic Provider Name and Address Organization Details Last Updated DateTime 5 179.07 cm 30 kg/m2 87078.5 8 g 80 /min 95 % 140/60 mm[Hg] INGACIO Abdalla [facility] 5 13:25:28 Date Recorded Body height Body mass index (BMI) Body weight Oxygen saturation Heart rate Systolic And Diastolic Provider Name and Address Organization Details Last Updated DateTime 5 179.07 cm 29.8 kg/m2 58392.9 9 g 98 % 74 /min 140/60 mm[Hg] IGNACIO Abdalla [facility] 09:40:07 Date Recorded Body height Body mass index (BMI) Body weight Respiratory rate Body temperature Oxygen saturation Heart rate Systolic And Diastolic Provider Name and Address Organization Details Last Updated DateTime 5 179.07 cm 30.7 kg/m2 74826.5 4 g 16 /min 97.3 [degF] 99 % 70 /min 162/68 mm[Hg] [place] Woods [place] - [facility] 5 08:42:00 Social History Question Answer Notes LastModified by [email or web address] ion Details LastModified Time Tobacco Smoking Status Former Smoker quit 2013 [place] Woods [facility], [place] - [place] 11/12/2023 10:18:15 Are You Blind [...] Functional Status Question Answer Note LastModified by [employer] ion Details LastModified Time Do you use [...] anxious, or unable to sleep at night)? [id number] Information not available 11/12/2023 Family History Relationship Description Onset Age of this Age Resolved Age Notes LastModified by Organization Details LastModified Time Mother Myocardial infarction [email or web address] Not available 04/2024 10:15:50 Medical History Condition Response Coronary Artery Disease N Atrial Fibrillation N High Blood Pressure Y Thyroid Problems N Kidney or Bladder Problems N Depression N COPD N Blood Clots N GI Problems N Skin Problems N Eating Disorder N Anemia N Heart Attack (SD) N Diabetes Y Anxiety Disorder N Muscle, Joint, or Bone Problems N Seizures/Epilepsy N Arthritis N Acid Reflux (GERD) Y Cancer N Stroke N Allergies N Asthma N Substance Abuse N High Cholesterol Y Hepatitis N Liver Disease N Headaches N Osteoporosis N Heart Failure N Past Encounters Encounter ID Performer Location Encounter Start Date Encounter Closed Date Diagnosis/Indication Diagnosis SNOMED-CT Code Diagnosis ICD10 Code Diagnosis IMO Codes Diagnosis Note [id number] Gal Gallagher MD [facility] [address] [place] [address] 05/31/2025 13:20:32 06/17/2025 11:22:19 Obese class I 7978117701 25461 E66.811 E66.3 [id number] Working on diet/exerc ise with good results Essential hypertension 67302694 I10 86618 Chronic ki dney disease stage 3A 953743635 N18.31 [id number] Refer to Nephrology . Red flag symptoms [...] Acute on c hronic diastolic heart failure 598672274 I50.33 [id number] Previously was supposed to be on torsemide 20 b.i.d. but currently not taking any diuretics. Resume at 10 mg daily. Encouraged low-sodium diet, heart failure precaution s. Check proBNP and basic metabolic panel in 10 days and route results to patient's nephrology team also. Health Concerns Section Related Observation LastModified by Organization Detai ls LastModified Time None Recorded Concern Status LastModified by Organization Details LastModified Time None Recorded Payers Encounter Date Sequence Insurance Name Policy Number Policy Conde Covered Member ID Conde Member ID Guarantor Name 05/31/2025 1 [place] Jamar Mesa [id number] Jamar Rojas Moshe 05/31/2025 2 [employer] (MEDICARE SUPPLEMENT) Jamar Rojas Moshe [id number] Jamar Mesa Notes Date Note Type Note Provider Name and Address Organization Details Recorded Time 06/11/2025 text/html ROS as noted in the [...] placement versus age-indeterminate anteroseptal infarct. Transthoracic echocardiogram, [facility], 11/12/2024: LVEF 66%, trace mitral regurgitation, mild left atrial enlargement, no pulmonary hypertension Gal Gallagher MD Attn: [employer],[address] [facility], [place], [address], [facility] 06/13/2025 22:33:34 06/14/2025 text/html [...] HI, stable, sleep good, Patricia Wolfe APN, [employer]-C Attn: [employer],[address] [facility], [place], [address], [facility] 06/16/2025 18:14:42
--- OUTSIDE RECORDS SUMMARY | 2025-07-25 08:29 | XMS_ITS | Continuity of Care Document ---
Author Organization [place] - [facility], [facility] Address [address] [place] [address] Care Team Providers Care Display Manager Name Role Phone PATRICIA WOLFE Primary Care Provider Assessment No assessment recorded. Plan of Treatment Reminders Order Date Submit Date Provider Last Modified By Organization Details Last Modified Time Details Appointments ANY 2025 07:45A M Patricia Wolfe APN, MEDICAL RECORD LIBRARIANS TEACHER-C Not available Not available Not available ANY 2025 08:15A M Gal Gallagher MD Not available Not available Not available Lab BMP, serum or plasma 2024 025 [facility], [address], [address], 07/01/2025 08:40:19 Referral None recorded. Procedures None recorded. Surgeries None recorded. Imaging None recorded. Medication Orders torsemide 20 mg tablet 2024 025 [facility], [address] , [place], [address], 07/12/2025 14:43:14 Kerendia 20 mg tablet 2024 025 [id number], [address] [place], [address], 07/11/2025 05:01:57 Kerendia 20 mg tablet 2024 025 [facility], [address], [place], [address], 07/11/2025 05:01:57 Patient TargetsNo targets recorded. Patient Instructions Encounter Date Encounter Id Patient Instructions Last Modified By Organization Details Last Modified Time 06/11/2025 [id number] [facility] home BP monitor Change Torsemide to 20 mg once a day Start Kerendia 20 mg once a day Stop spironolactone Follow up Jul 05 as scheduled with labs prior [email or web address] Not available 06/11/2025 09:53:02 Reason for Referral None Reported. Results Created Date Observation Date Name Description Value Unit Range Abnormal Flag Note LastModifiedBy Organization Detail LastModifiedTime 06/08/2006/09/2025 NT-CT OBNP nt-probnp 114 pg/mL 0-376 The follo [...] enden t 300 pg/mL Not Available [facility] ([facility]) [address], [place], [address], 06/09/2025 07:39:59 06/08/2006/08/2025 BASIC METAB OLIC PANEL [...] at www.k doqi. org. Not Available [facility] ([facility]) [address], [place], [address], 06/09/2025 07:40:00 06/08/2006/09/2025 BASIC METAB OLIC PANEL (8) glucose 221 mg/dL 70-99 above high normal Not Available [facility] ([facility]) [address] [place], [address], 06/09/2025 07:40:00 06/08/2006/09/2025 BASIC METAB OLIC PANEL (8) BUN 13 mg/dL 8-27 Not Available [facility] ([facility]) [address], [place], [address], 06/09/2025 07:40:00 06/08/2006/09/2025 BASIC METAB OLIC PANEL (8) creatinine 1.18 mg/dL 0.76-1 .27 Not Available [facility] ([facility]) [address], [place], [address], 06/09/2025 07:40:00 06/08/2006/09/2025 BASIC METAB OLIC PANEL (8) eGFR 68 mL/mi n/1.7 3 >59 Not Available [facility] ([facility]) [address] [place], [address], 06/09/2025 07:40:00 06/08/2006/09/2025 BASIC METAB OLIC PANEL (8) BUN/creatini ne ratio 11 10-24 Not Available [facility] ([facility]) [address] [place], [address], 06/09/2025 07:40:00 06/08/20 25 06/09/2025 BASIC METAB OLIC PANEL (8) sodium 135 mmol/ L 134-14 4 Not Available [facility] ([facility]) [address] [place], [address], 06/09/2025 07:40:00 06/08/20 25 06/09/2025 BASIC METAB OLIC PANEL (8) potassium 3.3 mmol/ L 3.5-5. 2 below low normal Not Available [facility] ([facility]) [address] [place], [address], 06/09/2025 07:40:00 06/08/2006/09/2025 BASIC METAB OLIC PANEL (8) chloride 87 mmol/ L 96-106 below low normal Not Available [facility] ([facility]) [address] [place], [address], 06/09/2025 07:40:00 06/08/2006/09/2025 BASIC METAB OLIC PANEL (8) carbon dioxide, total 28 mmol/ L 20-29 Not Available [facility] ([facility]) [address] [place], [address], 06/09/2025 07:40:00 06/08/20 25 06/09/2025 BASIC METAB OLIC PANEL (8) calcium 9.2 mg/dL 8.6-10 .2 Not Available [facility] ([facility]) [address] [place], [address], 06/09/2025 07:40:00 06/09/2006/10/2025 NT-CT OBNP nt-probnp 133 pg/mL 0-376 The follo [...] enden t 300 pg/mL Not Available [facility] ([facility]) [address] [place], [address], 06/10/2025 04:36:22 06/09/20 25 06/10/2025 BMP7+ EGFR glucose 216 mg/dL 70-99 above high normal Not Available [facility] ([facility]) [address] [place], [address], 06/10/2025 04:36:22 06/09/20 25 06/10/2025 BMP7+ EGFR BUN 13 mg/dL 8-27 Not Available [facility] ([facility]) [address] [place], [address], 06/10/2025 04:36:22 06/09/20 25 06/10/2025 BMP7+ EGFR creatinine 1.11 mg/dL 0.76-1 .27 Not Available [facility] ([facility]) [address] [place], [address], 06/10/2025 04:36:22 06/09/20 25 06/10/2025 BMP7+ EGFR eGFR 73 mL/mi n/1.7 3 >59 Not Available [facility] ([facility]) [address] [place], [address], 06/10/2025 04:36:22 06/09/20 25 06/10/2025 BMP7+ EGFR sodium 135 mmol/ L 134-14 4 Not Available [facility] ([facility]) [address] [place], [address], 06/10/2025 04:36:22 06/09/20 25 06/10/2025 BMP7+ EGFR potassium 3.2 mmol/ L 3.5-5. 2 below low normal Not Available [facility] ([facility]) [address] [place], [address], 06/10/2025 04:36:22 06/09/20 25 06/10/2025 BMP7+ EGFR chloride 87 mmol/ L 96-106 below low normal Not Available [facility] ([facility]) [address] [place], [address], 06/10/2025 04:36:22 06/09/20 25 06/10/2025 BMP7+ EGFR carbon dioxide, total 30 mmol/ L 20-29 above high normal Not Available [facility] ([facility]) [address] [place], [address], 06/10/2025 04:36:22 06/30/20 25 06/30/2025 BASIC METAB OLIC PANEL (8) interpretati on: [...] acute renal failu re. Addit ional infor matio n may be found at www.k doqi. org. Not Available [facility] ([facility]) [address] [place], [address], 07/01/2025 08:40:19 06/30/20 25 07/01/2025 BASIC METAB OLIC PANEL (8) glucose 201 mg/dL 70-99 above high normal Not Available [facility] ([facility]) [address] [place], [address], 07/01/2025 08:40:19 06/30/20 25 07/01/2025 BASIC METAB OLIC PANEL (8) BUN 8 mg/dL 8-27 Not Available [facility] ([facility]) [address] [place], [address], 07/01/2025 08:40:19 06/30/20 25 07/01/2025 BASIC METAB OLIC PANEL (8) creatinine 1.10 mg/dL 0.76-1 .27 Not Available [facility] ([facility]) [address] [place], [address], 07/01/2025 08:40:19 06/30/20 25 07/01/2025 BASIC METAB OLIC PANEL (8) eGFR 74 mL/mi n/1.7 3 >59 Not Available [facility] ([facility]) [address] [place], [address], 07/01/2025 08:40:19 06/30/2007/01/2025 BASIC METAB OLIC PANEL (8) BUN/creatini ne ratio 7 10-24 below low normal Not Available [facility] ([facility]) [address] [place], [address], 07/01/2025 08:40:19 06/30/2007/01/2025 BASIC METAB OLIC PANEL (8) sodium 136 mmol/ L 134-14 4 Not Available [facility] ([facility]) [address] [place], [address], 07/01/2025 08:40:19 06/30/20 25 07/01/2025 BASIC METAB OLIC PANEL (8) potassium 3.7 mmol/ L 3.5-5. 2 Not Available [facility] ([facility]) [address] [place], [address], 07/01/2025 08:40:19 06/30/2007/01/2025 BASIC METAB OLIC PANEL (8) chloride 93 mmol/ L 96-106 below low normal Not Available [facility] ([facility]) [address], [place], [address], 07/01/2025 08:40:19 06/30/20 25 07/01/2025 BASIC METAB OLIC PANEL (8) carbon dioxide, total 25 mmol/ L 20-29 Not Available [facility] ([facility]) [address], [place], [address], 07/01/2025 08:40:19 06/30/2007/01/2025 BASIC METAB OLIC PANEL (8) calcium 9.4 mg/dL 8.6-10 .2 Not Available [facility] ([facility]) [address], [place], [address], 07/01/2025 08:40:19 Result Notes None recorded. Problems Name Problem SNOMED Code Status Onset Date Resolution Date Notes Provider Name and Address Organization Details Recorded Time Type 2 diabetes mellitus without complicatio n 977084046 Active 2023 Patricia Wolfe APN, FNP-C Attn: Sanford shirley,[address] [facility], [place], [address], [facility] - [place] 4 10:32:20 Essential hypertensio n 01358998 Active 2023 Patricia Wolfe APN, FNP-C Attn: Sanford shirley,[address] [facility], [place], [address], [facility] - [place] 4 10:32:23 Benign prostatic hyperplasia 572105345 Active 2023 Patricia Wolfe APN, FNP-C Attn: Sanford shirley,[address] [facility], [place], [address], [facility] - [place] 4 10:35:30 Mixed anxiety and depressive disorder 910833293 Active 2023 Patricia Wolfe APN, FNP-C Attn: Sanford shirley,[address], [place], [address], [facility] - [place] 4 10:35:32 Hyperlipide nelda 53539490 Active 2023 Patricia Wolfe MARINE SUPERINTENDENT, MEDICAL RECORD LIBRARIANS TEACHER-C Attn: Sanford shirley,[address], [place], [address], [facility] - [place] 4 09:38:48 Neuropathy due to type 2 diabetes mellitus 5636838864970 06 Active 2023 Patricia Wolfe APN, MEDICAL RECORD LIBRARIANS TEACHER-C Attn: Sanford shirley,[address], [place], [address], [facility] - [facility] 4 09:16:32 Stasis dermatitis 63578106 Active 2024 Patricialesley Wolfe APN, MEDICAL RECORD LIBRARIANS TEACHER-C Attn: Sanford shirley,[address] [facility], [place], [address], [facility] - [facility] 5 14:23:50 Problem Notes None recorded. Procedures Surgical History Date Name Laterality Status Provider Name and Address Organization Details Recorded Time 3 cataract surgery completed [place] [facility] 11/12/2023 10:20:58 1 Prostate Biopsy completed [place] [facility] 11/12/2023 10:21:57 9 cataract surgery completed [place] [facility] 11/12/2023 10:20:41 colonoscopy completed Gloria Rangel Erik [facility] 11/12/2023 10:21:30 Imaging Results None recorded. Procedure Notes None recorded. Medical Equipment None Reported. Allergies Allergen ID Allergen Name Allergen Category Reaction Reaction Severity Criticality Documentation Date Start Date Code Code System Note Provider Name and Address Organization Details Recorded Time 19691210 lisinopri l medicatio n Not available Not available Not available 04/30/20252015 70985 RxNorm IGNACIO Abdalla [place] 5 13:22:23 19691211 acetamino phen / oxycodone medicatio n Not available Not available Not available 04/30/2025 93277 3 RxNorm Tiffanie Martinez MA null, [place] - [place] 13:22:26 Medications Name Sig Start [...] Updated DateTime 5 179.07 cm 29.8 kg/m2 42741.9 9 g 98 % 74 /min 140/60 mm[Hg] Tiffanie Martinez MA [place] - [facility] 5 09:40:07 Social History Question Answer Notes LastModified by Organizat ion Details LastModified Time Tobacco Smoking Status Former Smoker quit 2013 [place], [place] 11/12/2023 10:18:15 Are You Blind [...] anxious, or unable to sleep at night)? DT1155-7 Information not available 11/12/2023 Family History Relationship [...] Eating Disorder N Anemia N Heart Attack (IA) N Anxiety Disorder N Diabetes Y Muscle, [...] ICD10 Code Diagnosis IMO Codes Diagnosis Note [id number] Gal Gallagher MD [facility] [address] [place] [address] 05/31/2025 13:20:32 06/17/2025 11:22:19 Obese class I 6538287011 56994 E66.811 E66.3 8323395207 Working on diet/exerc ise with good results Essential hypertension 85986962 I10 47826 Chronic ki dney disease stage 3A 169587990 N18.31 [id number] Refer to Nephrology . Red flag symptoms [...] Acute on c hronic diastolic heart failure 346387178 I50.33 768879 Previously was supposed to be on torsemide 20 b.i.d. but currently not taking any diuretics. Resume at 10 mg daily. Encouraged low-sodium diet, heart failure precaution s. Check proBNP and basic metabolic panel in 10 days and route results to patient's nephrology team also. [id number] Gal Gallagher MD [facility] [employer] [facility] [address] [place] [address] 06/11/2025 09:15:39 06/15/2025 12:03:38 Essential hypertension 21126177 I10 32798 Continue clonidine 0.2 t.i.d., hydralazin e 100 [...] also discussed. Obstructiv e sleep apnea syndrome 22482165 G47.33 130048 Recently started using CPAP. Anticipate improvemen t in blood pressure with optimizati on of ANGELA. Acute on c hronic diastolic heart failure 209799424 I50.33 406255 Given hypokalemi a and improvemen t in volume status, change torsemide from 20 mg b.i.d. to 20 mg daily. Intolerant to spironolac tone with breast tenderness . We will discontinu e initiate currently at 20 mg daily. Side effect profile discussed. Obtain basic metabolic panel in 3 weeks. Follow-up July 05 as previously scheduled. On behalf of the Cardiov[facility] at [facility] , we appreciate the opportunit y to participat e in the care of your patient. Please feel free to reach out to us for any questions regarding your patient's cardiac care. Gal Gallagher MD, [facility] , Cardiology Ph: [phone]: Health Concerns Section Related Observation LastModified by Organization Detai ls LastModified Time None Recorded Concern Status LastModified by Organization Details LastModified Time None Recorded Payers Encounter Date Sequence Insurance Name Policy Number Policy Conde Covered Member ID Conde Member ID Guarantor Name 06/11/2025 1 [place] Jamar [place]a [id number] Jamar Mesa 06/11/2025 2 [facility] (MEDICARE SUPPLEMENT) Jamar Mesa [id number] Jamar Mesa Notes Date Note Type Note [...] placement versus age-indeterminate anteroseptal infarct. Transthoracic echocardiogram, [facility], 11/12/2024: LVEF 66%, trace mitral regurgitation, mild left atrial enlargement, no pulmonary hypertension Gal Gallagher MD Attn: Accounting,[address] [facility], [place], [address], [facility] - [place] 06/13/2025 22:33:34
--- OUTSIDE RECORDS SUMMARY | 2025-07-25 08:30 | XMS_ITS | Clinical Summary ---
Author Organization [employer] [facility] Address [address] [facility] [place] [address] Phone Care Team Providers Care Grid Trimmer Name Role Phone Unavailable Primary Care Provider Unavailabl e Allergies No known active allergies Medications lancets (One Touch Delica) 33 gaugeIndications:O ther specified diabetes mellitus without complication, without long-term current use of insulin ([facility]) Patient checking sugar daily.. 100 Lancet 3 7 Active blood sugar diagnostic (iCeuticaTOUCH VERIO) StripIndications:O ther specified diabetes mellitus without complication, without long-term current use of insulin ([facility]) Patient checking sugar daily. 100 Strip 3 7 Active Blood-Glucose Meter (iCeuticaTOUCH VERIO SYSTEM)Indications :Other specified diabetes mellitus without complication, without long-term current use of insulin ([facility]) Patient checking sugar daily.. 1 Device 7 Active metFORMIN (GLUCOPHAGE) 500 mg tabletIndications: Pre-diabetes TAKE ONE TABLET TWO TIMESDAILY WITH MEALS 60 Tablet 5 8 Active losartan (COZAAR) 100 mg tablet TAKE ONE TABLET EVERY DAY 90 Tablet 3 8 Active tamsulosin (FLOMAX) 0.4 mg capsule TAKE ONE CAPSULE EVERY DAY 30 Capsule 5 8 Active atorvastatin (LIPITOR) 40 mg tabletIndications: Hyperlipidemia, unspecified hyperlipidemia type TAKE 1 TABLET EACH NIGHT AT BEDTIME 30 Tablet 5 8 Active escitalopram oxalate (LEXAPRO) 20 mg tablet Take 1 Tablet (20 mg) by mouth daily. 90 Tablet 1 8 Active hydroCHLOROthiazid e 25 mg tablet Take 1 Tablet (25 mg) by mouth daily. 30 Tablet 2 8 Active finasteride (PROSCAR) 5 mg tabletIndications: BPH with obstruction/lower urinary tract symptoms Take 1 Tablet (5 mg) by mouth daily. 90 Tablet 3 8 Active Active Problems Problem Noted Date Diagnosed Date History of elevated PSA 04/17/2017 Anxiety with depression 01/11/2017 Essential hypertension 10/29/2016 Hyperlipidemia 10/29/2016 Family History Relation Name Status Comments Father Mother Social History Tobacco Use Types Packs/Day Years Used Date Smoking Tobacco: Former Cigarettes Tobacco Cessation:Counseling Given: Yes Alcohol Use Standard Drinks/Week Comments Yes 0 (1 standard drink = 0.6 oz pur e alcohol) Sex and Gender Information Value Date Recorded Sex Assigned at Not on file Legal Sex Male 4:31 AM TOOTH GRINDER Gender Identity Not on file Sexual Orientation Not on file Occupation Industry Job Start Date Job End Date Not on file Not on file Not on file Not on file Last Filed Vital Signs Vital Sign Reading Time Taken Comments Blood Pressure 115/70 07/10/2018 7:42 AM TOOTH GRINDER Pulse 81 05/22/2018 8:12 AM CDT Temperature 36.8 C (98.3 F) 05/22/2018 8:12 AM CDT Respiratory Rate 18 05/22/2018 8:12 AM CDT Oxygen Saturation 98% 05/22/2018 8:12 AM CDT Inhaled Oxygen Concentration - - Weight 99.8 kg (220 lb) 07/10/2018 7:42 AM TOOTH GRINDER Height 177.8 cm (5' 10) 07/10/2018 7:42 AM TOOTH GRINDER Body Mass Index 31.57 07/10/2018 7:42 AM TOOTH GRINDER Plan of Treatment Health Maintenance Due Date Last Done Comments DTAP/TDAP/TD VACCINES (1 - Tdap) 1976 COLORECTAL SCREENING 2002 Colorectal Cancer Screening 2002 FIT-DNA Q 3 years 2002 FIT/FOBT Q 1 year 2002 Flex Sig/CT Colonography Q 5 years 2002 PNEUMOCOCCAL VACCINE 50+ YEARS (1 of 1 - PCV) 11/27/19 08 ZOSTER VACCINE (1 of 2) 11/27/2007 INFLUENZA VACCINE (#1) 2025 RSV VACCINE (60+ or ) (1 - 1-dose 75+ series) 2032
--- OUTSIDE RECORDS SUMMARY | 2025-07-25 08:30 | XMS_ITS | Encounter Summary ---
Author Organization [facility] Address [address] [place] [address] Care Team Providers Care Groundwater Consultant Name Role Phone Perry New MD Primary Care Provider [phone] Negrito Maria MD Unavailable Unavailable Sandra Isaacs SCIENCE CONSULTANT-LINE ORDERING CLINICIAN Unavailable [phone] Chandra Collins DO Primary Care Provider [phone] Patricia Valentine SCIENCE CONSULTANT-LINE ORDERING CLINICIAN Primary Care Provider [phone] Encounter Details Date Type Department Care Team (Late st Contact Info) Description 06/14/[address] [facility] Outpatient Visit 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 Not on file Not on file documented as of this encounter Plan of Treatment Not on file documented as of this encounter Visit Diagnoses Not on filedocumented in this encounter Care Teams Groundwater Consultant Relationship Specialty Start Date End Date Perry New MD [address] [place], [place] [id number] PCP - General 06/06/10 10/09/18 Chandra Collins DO [address] [place], [place] [id number] PCP - General Family Medicine 10/10/18 03/10/25 Patricia Valentine APRN-LINE ORDERING CLINICIAN [address] [place] [phone] PCP - General Nurse Practitioner Family 03/11/25 Negrito Maria MD [address] [place] [address] Oncology 07/25/11 Sandra Isaacs APRN-LINE ORDERING CLINICIAN [address] [facility] [address] [place] [address] Nurse Practitioner 07/25/11 documented as of this encounter
--- OUTSIDE RECORDS SUMMARY | 2025-07-25 08:30 | XMS_ITS | Encounter Summary ---
Author Organization [facility] Address [address] [place] [address] Care Team Providers Care Multi Slide Machine Tender Name Role Phone Perry New MD Primary Care Provider [phone] Negrito Maria MD Unavailable Unavailable Sandra Isaacs PRINCIPAL AUTOMATION ENGINEER-BEAUTY PARLOR CLEANER Unavailable [phone] Chandra Collins DO Primary Care Provider [phone] Patricia Valentine PRINCIPAL AUTOMATION ENGINEER-BEAUTY PARLOR CLEANER Primary Care Provider [phone] Encounter Details Date Type Department Care Team (Late st Contact Info) Description 10/30/2010 [facility] Outpatient Visit [facility] [address] [place] [address] Unknown, Provider Social History Tobacco Use Types Packs/Day Years Used Date Smoking Tobacco: Every Day Cigarettes 1 30 Comments:etq Alcohol Use Standard Drinks/Week Comments Yes 12.5 (1 standard drink = 0.6 oz pure alcohol) encouraged to cut down Sex and Gender Information Value Date Recorded Sex Assigned at Not on file Legal Sex Male 4:16 AM RAW SAMPLER Gender Identity Not on file Sexual Orientation Not on file 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 Not on file Not on file documented as of this encounter Plan of Treatment Not on file documented as of this encounter Visit Diagnoses Not on filedocumented in this encounter Care Teams Multi Slide Machine Tender Relationship Specialty Start Date End Date Perry New MD [address] [place] [address] PCP - General 06/06/10 10/09/18 Chandra Collins DO [address] [place], [place] [id number] PCP - General Family Medicine 10/10/18 03/10/25 Patricia Valentine APRN-BEAUTY PARLOR CLEANER [address] [place] [phone] PCP - General Nurse Practitioner Family 03/11/25 Negrito Maria MD [address] [place] [address] Oncology 07/25/11 Sandra Isaacs APRN-BEAUTY PARLOR CLEANER [address] [facility] [address] [place] [address] Nurse Practitioner 07/25/11 documented as of this encounter
--- OUTSIDE RECORDS SUMMARY | 2025-07-25 08:30 | XMS_ITS | Encounter Summary ---
Author Organization [facility] Address [address] [place] [address] Care Team Providers Care Accounts Receivable Analyst Name Role Phone Gee Hoffmann DO Primary Care Provide r Encounter Details Date Type Department Care Team (Late st Contact Info) Description 09/12/2007 Outpatient Historical [facility] [place] [address] [place] [address] [place] [address] Social History Tobacco Use Types Packs/Day Years Used Date Smoking Tobacco: Never Assessed Sex and Gender Information Value Date Recorded Sex Assigned at Not on file Legal Sex Male 4:31 AM REGISTERED NURSE CARDIAC TELEMETRY Gender Identity Not on file Sexual Orientation Not on file documented as of this encounter Plan of Treatment Not on file documented as of this encounter Visit Diagnoses Not on filedocumented in this encounter Care Teams Accounts Receivable Analyst Relationship Specialty Start Date End Date Gee Hoffmann DO PCP - General Family Practice 10/29/16 10/09/18 documented as of this encounter
--- OUTSIDE RECORDS SUMMARY | 2025-07-25 08:30 | XMS_ITS | Encounter Summary ---
Author Organization [facility] Health Address [address] [place] [address] Care Team Providers Care Social Security Specialist Name Role Phone Perry New MD Primary Care Provider [phone] Negrito Maria MD Unavailable Unavailable Sandra Isaacs TITLE I ASSISTANT-ROUTER OPERATOR PIN Unavailable [phone] Chandra Collins DO Primary Care Provider [phone] Patricia Valentine TITLE I ASSISTANT-ROUTER OPERATOR PIN Primary Care Provider [phone] Encounter Details Date Type Department Care Team (Late st Contact Info) Description 06/01/2011 [facility] Outpatient Visit [facility] [address] [place] [address] Unknown, Provider Social History Tobacco Use Types Packs/Day Years Used Date Smoking Tobacco: Every Day Cigarettes 1 30 Comments:etq Alcohol Use Standard Drinks/Week Comments Yes 12.5 (1 standard drink = 0.6 oz pure alcohol) encouraged to cut down Sex and Gender Information Value Date Recorded Sex Assigned at Not on file Legal Sex Male 4:16 AM ASSISTANT PROSECUTING ATTORNEY Gender Identity Not on file Sexual Orientation Not on file 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 Not on file Not on file documented as of this encounter Plan of Treatment Not on file documented as of this encounter Visit Diagnoses Not on filedocumented in this encounter Care Teams Social Security Specialist Relationship Specialty Start Date End Date Perry New MD [address] [place], [place] [id number] PCP - General 06/06/10 10/09/18 Chandra Collins DO [address] [place], [place] [id number] PCP - General Family Medicine 10/10/18 03/10/25 Patricia Valentine APRN-ROUTER OPERATOR PIN [address] [place] [phone] PCP - General Nurse Practitioner Family 03/11/25 Negrito Maria MD [address] [place] [address] Oncology 07/25/11 Sandra Isaacs APRN-ROUTER OPERATOR PIN [phone] [facility] [address] [place] [address] Nurse Practitioner 07/25/11 documented as of this encounter
--- OUTSIDE RECORDS SUMMARY | 2025-07-25 08:30 | XMS_ITS | Continuity of Care Document ---
Author Organization [facility] (Adult Med) Address [address] [place] [address] Care Team Providers Care Driller Portable Name Role Phone PATRICIA WOLFE Primary Care Provider [phone] Assessment No assessment recorded. Plan of Treatment Reminders Order Date Submit Date Provider Last Modified By Organization Details Last Modified Time Details Appointments ANY 15 2025 07:45A M Patricia Wolfe APN, WAD PRINTING MACHINE OPERATOR-C Not available Not available Not available ANY 15 2025 08:15A M Gal Gallagher MD Not available Not available Not available Lab HbA1c (hemoglob in A1c), blood 2024 025 In-Office Order, Internal Use Only DO Not Attach Compendium DO Not Attach Compendium, Do Not Delete/merge, [id number] 06/16/2025 18:10:18 Referral None recorded. Procedures None recorded. Surgeries None recorded. Imaging None recorded. Medication Orders Miralax 17 gram/dose oral powder 2024 025 [facility], [address] , [place], [address], 06/14/2025 09:08:12 gabapenti n 100 mg capsule 2024 025 [facility], [address] [facility] [facility], [place], [address], 06/14/2025 09:08:13 Patient TargetsNo targets recorded. Patient Instructions Encounter Date Encounter Id Patient Instructions Last Modified By Organization Details Last Modified Time 06/14/2025 [id number] high blood pressure: care instructions Not available [...] Keep appointments with PCP and all specialists. s4 Not available 06/14/2025 08:44:00 f/u 3 months DWP barriers to care: none [facility] Not available 06/14/2025 08:44:04 Reason for Referral None Reported. Results Created Date Observation Date Name Description Value Unit Range Abnormal Flag Note LastModifiedBy Organization Detail LastModifiedTime 06/08/2006/09/2025 NT-ND OBNP nt-probnp 114 pg/mL 0-376 The follo [...] enden t 300 pg/mL Not Available [facility] ([facility]) [address] [facility], [place], [address], 06/09/2025 07:39:59 06/08/2006/08/2025 BASIC METAB OLIC PANEL [...] at [email or web address] [email or web address] org. Not Available [facility] ([facility]) [address] [place], [address], 06/09/2025 07:40:00 06/08/20 25 06/09/2025 BASIC METAB OLIC PANEL (8) glucose 221 mg/dL 70-99 above high normal Not Available [facility] ([facility]) [address] [place], [address], 06/09/2025 07:40:00 06/08/20 25 06/09/2025 BASIC METAB OLIC PANEL (8) BUN 13 mg/dL 8-27 Not Available [facility] ([facility]) [address] [place], [address], 06/09/2025 07:40:00 06/08/20 25 06/09/2025 BASIC METAB OLIC PANEL (8) creatinine 1.18 mg/dL 0.76-1 .27 Not Available [facility] ([facility]) [address] [place], [address], 06/09/2025 07:40:00 06/08/20 25 06/09/2025 BASIC METAB OLIC PANEL (8) eGFR 68 mL/mi n/1.7 3 >59 Not Available [facility] ([facility]) [address] [place], [address], 06/09/2025 07:40:00 06/08/2006/09/2025 BASIC METAB OLIC PANEL (8) BUN/creatini ne ratio 11 - Not Available [facility] ([facility]) [address] [facility] [place], [address], 06/09/2025 07:40:00 06/08/2006/09/2025 BASIC METAB OLIC PANEL (8) sodium 135 mmol/ L 134-14 4 Not Available [facility] ([facility]) [address] [place] [place], [address], 06/09/2025 07:40:00 06/08/2006/09/2025 BASIC METAB OLIC PANEL (8) potassium 3.3 mmol/ L 3.5-5. 2 below low normal Not Available [facility] ([facility]) [address] [facility] [place], [address], 06/09/2025 07:40:00 06/08/20 25 06/09/2025 BASIC METAB OLIC PANEL (8) chloride 87 mmol/ L 96-106 below low normal Not Available [facility] ([facility]) [address] [facility], [place], [address], 06/09/2025 07:40:00 06/08/2006/09/2025 BASIC METAB OLIC PANEL (8) carbon dioxide, total 28 mmol/ L 20-29 Not Available [facility] ([facility]) [address] [place] [place], [address], 06/09/2025 07:40:00 06/08/2006/09/2025 BASIC METAB OLIC PANEL (8) calcium 9.2 mg/dL 8.6-10 .2 Not Available [facility] ([facility]) [address] [place], [address], 06/09/2025 07:40:00 06/09/20 25 06/10/2025 NT-ND OBNP nt-probnp 133 pg/mL 0-376 The follo [...] enden t 300 pg/mL Not Available [facility] ([facility]) [address] [place], [address], 06/10/2025 04:36:22 06/09/20 25 06/10/2025 BMP7+ EGFR glucose 216 mg/dL 70-99 above high normal Not Available [facility] ([facility]) [address] [place], [address], 06/10/2025 04:36:22 06/09/20 25 06/10/2025 BMP7+ EGFR BUN 13 mg/dL 8-27 Not Available [facility] ([facility]) [address] [place], [address], 06/10/2025 04:36:22 06/09/20 25 06/10/2025 BMP7+ EGFR creatinine 1.11 mg/dL 0.76-1 .27 Not Available [facility] ([facility]) [address] [place], [address], 06/10/2025 04:36:22 06/09/20 25 06/10/2025 BMP7+ EGFR eGFR 73 mL/mi n/1.7 3 >59 Not Available [facility] ([facility]) [address] [place], [address], 06/10/2025 04:36:22 06/09/20 25 06/10/2025 BMP7+ EGFR sodium 135 mmol/ L 134-14 4 Not Available [facility] ([facility]) [address] [facility], [place], [address], 06/10/2025 04:36:22 06/09/20 25 06/10/2025 BMP7+ EGFR potassium 3.2 mmol/ L 3.5-5. 2 below low normal Not Available [facility] ([facility]) [address] [facility], [place], [address], 06/10/2025 04:36:22 06/09/20 25 06/10/2025 BMP7+ EGFR chloride 87 mmol/ L 96-106 below low normal Not Available [facility] ([facility]) [address] [facility], [place], [address], 06/10/2025 04:36:22 06/09/20 25 06/10/2025 BMP7+ EGFR carbon dioxide, total 30 mmol/ L 20-29 above high normal Not Available [facility] ([facility]) [address] [facility], [place], [address], 06/10/2025 04:36:22 06/14/20 25 06/14/2025 HbA1c (hemo globi n A1c), blood HbA1C 8.1 % Not Available In-Office Order Internal Use Only DO Not Attach Compendium DO Not Attach Compendium, Do Not Delete/merge, [id number] 06/14/2025 08:45:27 Result Notes None recorded. Problems Name Problem SNOMED Code Status Onset Date Resolution Date Notes Provider Name and Address Organization Details Recorded Time Type 2 diabetes mellitus without complicatio n 315810741 Active 2023 Patricia Wolfe APN, WAD PRINTING MACHINE OPERATOR-C Attn: [place] g,[address], [place], [address], [facility] 4 10:32:20 Essential hypertensio n 71435758 Active 2023 Patricia Wolfe APN, WAD PRINTING MACHINE OPERATOR-C Attn: [place] shirley,[address] [facility], [place], [place], [address] [place] [address] 2, [facility] 4 10:32:23 Benign prostatic hyperplasia 848855631 Active 2023 Patricia Wolfe APN, WAD PRINTING MACHINE OPERATOR-C Attn: [place] shirley,[address] [facility], [place], [place], [address] [place] [address] 2, [facility] 4 10:35:30 Mixed anxiety and depressive disorder 049791577 Active 2023 Patricia Wolfe APN, WAD PRINTING MACHINE OPERATOR-C Attn: [place] shirley,[address] [facility], [place], [place], [address] [place] [address] 2, [facility] 4 10:35:32 Hyperlipide nelda 80721749 Active 2023 Patricia Wolfe APN, WAD PRINTING MACHINE OPERATOR-C Attn: [place] shirley,[address] [facility], [place], [place], [address] [place] [address] 2, [facility] 4 09:38:48 Neuropathy due to type 2 diabetes mellitus 7534542107301 06 Active 2023 Patricia Wolfe APN, WAD PRINTING MACHINE OPERATOR-C Attn: [place] shirley,[address] [facility], [place], [place], [address] [place] [address] 2, [facility] 4 09:16:32 Stasis dermatitis 29813895 Active 2024 Patricia Wolfe APN, WAD PRINTING MACHINE OPERATOR-C Attn: [place] shirley,[address] [facility], [place], [place], [address] [place] [address] 2, [facility] 5 14:23:50 Problem Notes None recorded. Procedures Surgical History Date Name Laterality Status Provider Name and Address Organization Details Recorded Time 3 cataract surgery completed [facility] 11/12/2023 10:20:58 1 Prostate Biopsy completed [facility] 11/12/2023 10:21:57 9 cataract surgery completed [place] [facility] 11/12/2023 10:20:41 colonoscopy completed [place] [facility] 11/12/2023 10:21:30 Imaging Results None recorded. Procedure Notes None recorded. Medical Equipment None Reported. Allergies Allergen ID Allergen Name Allergen Category Reaction Reaction Severity Criticality Documentation Date Start Date Code Code System Note Provider Name and Address Organization Details Recorded Time 19691210 lisinopri l medicatio n Not available Not available Not available 04/30/20252015 19059 [facility] IGNACIO [place] [facility] 13:22:23 19691211 acetamino phen / oxycodone medicatio n Not available Not available Not available 04/30/2025 17481 3 RxIGNACIO [place] [facility] 13:22:26 Medications Name Sig Start Date Stop [...] prednisol one acetate 1 % eye drops,antwon arriagaon 11/11 completed Not Available Not Available Not [...] Updated DateTime 5 179.07 cm 30.7 kg/m2 32785.5 4 g 16 /min 97.3 [degF] 99 % 70 /min 162/68 mm[Hg] [place] [facility] 08:42:00 Social History Question Answer Notes LastModified by Organizat ion Details LastModified Time Tobacco Smoking Status Former Smoker quit 2013 [place], [place] - [facility] 11/12/2023 10:18:15 Are You Blind Or Do [...] anxious, or unable to sleep at night)? [id number] Information not available 11/12/2023 Family History Relationship Description Onset Age of this Age Resolved Age Notes LastModified by Organization Details LastModified Time Mother Myocardial infarction [email or web address] Not available 04/2024 10:15:50 Medical History Condition Response Coronary Artery Disease N Atrial Fibrillation N High Blood Pressure Y Depression N COPD N Blood Clots N Anxiety Disorder N Muscle, Joint, or Bone Problems N Arthritis N Acid Reflux (GERD) Y Cancer N Stroke N High Cholesterol Y Liver Disease N Headaches N Kidney or Bladder Problems N Thyroid Problems N GI Problems N Eating Disorder N Skin Problems N Anemia N Heart Attack (MD) N Diabetes Y Seizures/Epilepsy N Asthma N Allergies N Substance Abuse N Hepatitis N Osteoporosis N Heart Failure N Past Encounters Encounter ID Performer Location Encounter Start Date Encounter Closed Date Diagnosis/Indication Diagnosis SNOMED-CT Code Diagnosis ICD10 Code Diagnosis IMO Codes Diagnosis Note [id number] Gal Gallagher MD [facility] - [place] [address] [place] [address] 05/31/2025 13:20:32 06/17/2025 11:22:19 Obese class I 6825877980 36208 E66.811 E66.3 1477980366 Working on diet/exerc ise with good results Essential hypertension 75176375 I10 80285 Chronic ki dney disease stage 3A 542264613 N18.31 [id number] Refer to Nephrology . Red flag symptoms [...] Acute on c hronic diastolic heart failure 796882154 I50.33 618081 Previously was supposed to be on torsemide 20 b.i.d. but currently not taking any diuretics. Resume at 10 mg daily. Encouraged low-sodium diet, heart failure precaution s. Check proBNP and basic metabolic panel in 10 days and route results to patient's nephrology team also. [id number] Gal Gallagher MD [facility] [place] [address] [place] [address] 06/11/2025 09:15:39 06/15/2025 12:03:38 Essential hypertension 37803556 I10 22319 Continue clonidine 0.2 t.i.d., hydralazin e 100 [...] also discussed. Obstructiv e sleep apnea syndrome 05379401 G47.33 999723 Recently started using CPAP. Anticipate improvemen t in blood pressure with optimizati on of ANGELA. Acute on c hronic diastolic heart failure 136247548 I50.33 463616 Given hypokalemi a and improvemen t in volume status, change torsemide from 20 mg b.i.d. to 20 mg daily. Intolerant to spironolac tone with breast tenderness . We will discontinu e initiate currently at 20 mg daily. Side effect profile discussed. Obtain basic metabolic panel in 3 weeks. Follow-up July 05 as previously scheduled. On behalf of the Cardiovasc ular Services at [facility] , we appreciate the opportunit y to participat e in the care of your patient. Please feel free to reach out to us for any questions regarding your patient's cardiac care. Gal Gallagher MD, [facility] , Cardiology Ph: [phone]: [phone] MD [facility] (Adult Med) [address] [place] [address] 06/14/2025 08:28:37 06/18/2025 16:37:27 Essential hypertension 04680658 I10 cont following with cardiodiet changes advised Neuropathy due to type 2 diabetes mellitus 3721622182 35722 E11.40 a1c last was 6.3, 5: 7.8 at [facility] 5: 8.1 cont current plan:glime pride 4 mg qdmetformi n 500 mg biddwp eye exam, proper foot care, diet compliance sees podiatry;- cont gabapentin 100 mg tid Mixed anxi ety and depressive disorder 843949176 F41.8 pt thinks more anxiety and depression /ptsd; stable on med, no SI or HIcont current dose Hyperlipidemia 16918901 E78.5 cont statin, diet changes advised Venous sta sis edema of bilateral lower limbs 9250460390 1055811 I87.2 leg wound healed, some mild edema present,cu rrently on torsemide 20 mg Obese class I 9729929563 69870 E66.811 9811197740 advised pt on proper nutrition and hydration Chronic constipation 236 895628 K59.09 517224 cont metamucil and will add miralax prn Health Concerns Section Related Observation LastModified by Organization Detai ls LastModified Time None Recorded Concern Status LastModified by Organization Details LastModified Time None Recorded Payers Encounter Date Sequence Insurance Name Policy Number Policy Conde Covered Member ID Conde Member ID Guarantor Name 06/14/2025 1 [place] Jamar Mesa [id number] Jamar Mesa 06/14/2025 2 [facility] (MEDICARE SUPPLEMENT) Jamar Mesa [id number] Jamar Mesa Notes Date Note Type Note Provider Name and Address Organization Details Recorded Time 06/14/2025 text/html Pt here for a 3 month follow-up which has now been 5 months: pt c/o constipation- otc metamucil possible kidney stones- dysuria and has to push harder to relief himself and saw blood. states it was very weeks ago and not currently having any sx but he wanted to let provider know; neuropathy-gabap entin 100 mg tid, helping htn- denies cp or sob, sees cardio now T2DM- med compliant, not always diet compliant Mood- denies SI or HI, stable, sleep good, Patricia Wolfe APN, WAD PRINTING MACHINE OPERATOR-C Attn: [facility]ing,[address] [facility], [place], [address], [place] [facility] 06/16/2025 18:14:42
--- OUTSIDE RECORDS SUMMARY | 2025-07-25 08:30 | XMS_ITS | Continuity of Care Document ---
Author Organization [place] - [facility], [facility] Address [address] [place] [address] Care Team Providers Care Slasher Runner Name Role Phone PATRICIA WOLFE Primary Care Provider [phone] Assessment No assessment recorded. Plan of Treatment Reminders Order Date Submit Date Provider Last Modified By Organization Details Last Modified Time Details Appointments ANY 2025 07:45A M Patricia Wolfe APN, ADULT REMEDIAL EDUCATION INSTRUCTOR-C Not available Not available Not available ANY 2025 08:15A M Gal Gallagher MD Not available Not available Not available Lab pro BNP (pro B-type natriuret ic peptide), serum or plasma 2024 025 [facility], [address] [place] [address], [address], 05/11/2025 09:39:46 BMP, serum or plasma 2024 025 [facility], [address] [place] [address], [place], [address], 05/11/2025 09:39:46 Referral None recorded. Procedures None recorded. Surgeries None recorded. Imaging None recorded. Medication Orders hydralazi ne 100 mg tablet 2024 025 [facility], [address] [place] [address], [place], [address], 05/07/2025 16:43:17 torsemide 20 mg tablet 2024 025 [facility], [address], [place], [address], 07/12/2025 14:43:14 Patient TargetsNo targets recorded. Patient Instructions Encounter Date Encounter Id Patient Instructions Last Modified By Organization Details Last Modified Time 04/30/2025 [id number] A healthy lifestyle: care instructions [email or web address] Not available 04/30/2025 09:46:29 Discontinue telmisartan Clonidine [...] with me in about 4 weeks' time [email or web address] Not available 04/30/2025 09:44:19 Reason for Referral None Reported. Results Created [...] Not Available 03/06 23:10:59 04/01/20 25 04/01/2025 [facility] [employer] cody metab olic 1999 panel - Serum or Plasm a glucose [mass/volume ] in serum or plasma 257 mg/dL low: 70mg/d Lhigh: 99mg/d L high Not Available Not Available 04/02/2025 23:10:59 04/01/20 25 04/01/2025 [facility] [employer] cody metab olic 1999 panel - Serum or Plasm a sodium [moles/volum e] in serum or plasma 127 mmol/ L low: 136mmo l/Lhig h: 145mmo l/L low Not Available Not Available 04/02/2025 23:10:59 04/01/20 25 04/01/2025 [facility] [employer] cody metab olic 1999 panel - Serum or Plasm a potassium [moles/volum e] in serum or plasma 3.2 mmol/ L low: 3.5mmo l/Lhig h: 5.1mmo l/L low Not Available Not Available 04/02/2025 23:10:59 04/01/20 25 04/01/2025 [facility] [employer] olic 1999 panel - Serum or Plasm a chloride [moles/volum e] in serum or plasma 83 mmol/ L low: 98mmol /Lhigh : 107mmo l/L low Not Available Not Available 04/02/2025 23:10:59 04/01/20 25 04/01/2025 [facility] [employer] olic 1999 panel - Serum or Plasm a carbon dioxide, total [moles/volum e] in serum or plasma 30 mmol/ L low: 22mmol /Lhigh : 29mmol /L high Not Available Not Available 04/02/2025 23:10:59 04/01/20 25 04/01/2025 [facility] [employer] olic 1999 panel - Serum or Plasm a calcium [mass/volume ] in serum or plasma 9.1 mg/dL low: 8.4mg/ dLhigh : 10.4mg /dL Not Available Not Available 04/02/2025 23:10:59 04/01/20 25 04/01/2025 [facility] [employer] olic 1999 panel - Serum or Plasm a anion gap in blood by calculation 14 mmol/ L low: 6mmol/ Lhigh: 16mmol /L Not Available Not Available 04/02/2025 23:10:59 04/01/20 25 04/01/2025 Compr [employer] cody metab olic 1999 panel - Serum or Plasm a urea nitrogen [mass/volume ] in serum or plasma 15 mg/dL low: 7mg/dL high: 26mg/d L Not Available Not Available 04/02/2025 23:10:59 04/01/20 25 04/01/2025 Compr ehens cody metab olic 1999 panel - Serum or Plasm a creatinine [mass/volume ] in serum or plasma 1.34 mg/dL low: 0.72mg /dLhig h: 1.25mg /dL high Not Available Not Available 04/02/2025 23:10:59 04/01/20 25 04/01/2025 [facility] [employer] cody metab olic 1999 panel - Serum or Plasm a alkaline phosphatase [enzymatic activity/vol ume] in serum or plasma 151 U/L low: 40U/Lh igh: 150U/L high Not Available Not Available 04/02/2025 23:10:59 04/01/20 25 04/01/2025 Compr [employer] cody metab olic 1999 panel - Serum or Plasm a alanine aminotransfe rase [enzymatic activity/vol ume] in serum or plasma 101 U/L low: 6U/Lhi gh: 57U/L high Not Available Not Available 04/02/2025 23:10:59 04/01/20 25 04/01/2025 [facility] [employer] cody metab olic 1999 panel - Serum or Plasm a aspartate aminotransfe rase [enzymatic activity/vol ume] in serum or plasma 126 U/L low: 10U/Lh igh: 48U/L high Not Available Not Available 04/02/2025 23:10:59 04/01/20 25 04/01/2025 Compr [employer] cody metab olic 1999 panel - Serum or Plasm a protein [mass/volume ] in serum or plasma 8.4 text: 6.4 - 8.3 gm/dL high Not Available Not Available 04/02/2025 23:10:59 04/01/20 25 04/01/2025 Compr [employer] cody metab olic 1999 panel - Serum or Plasm a albumin [mass/volume ] in serum or plasma 4 text: 3.1 - 4.5 gm/dL Not Available Not Available 04/02/2025 23:10:59 04/01/20 25 04/01/2025 Compr ehens cody metab olic 1999 panel - Serum or Plasm a bilirubin.to krsytle [mass/volume ] in serum or plasma 1.1 mg/dL low: 0.2mg/ dLhigh : 1.2mg/ dL Not Available Not Available 04/02/2025 23:10:59 04/01/20 25 04/01/2025 Compr ehens cody metab olic 2000 panel - Serum or Plasm a glomerular [...] Available 04/02/2025 23:10:59 04/01/20 25 04/01/2025 Compr ehens cody metab olic 2000 panel - Serum or Plasm a interpretati [...] (hbf) exceeds 5% in the specimen. the AxiomniXsigo assay for the measurement of HbA1C IS [...] 25 04/02/2025 Compr ehens cody metab olic 2000 panel - Serum or Plasm a sodium [moles/volum e] in serum or plasma 133 mmol/ L low: 136mmo l/Lhig h: 145mmo l/L low Not Available Not Available 04/02/2025 23:10:59 04/02/20 25 04/02/2025 [facility] [employer] ol 1999 panel - Serum or Plasm a potassium [moles/volum e] in serum or plasma 2.8 mmol/ L low: 3.5mmo l/Lhig h: 5.1mmo l/L low Not Available Not Available 04/02/2025 23:10:59 04/02/20 25 04/02/2025 Compr [employer] olic 1999 panel - Serum or Plasm a chloride [moles/volum e] in serum or plasma 89 mmol/ L low: 98mmol /Lhigh : 107mmo l/L low Not Available Not Available 04/02/2025 23:10:59 04/02/20 25 04/02/2025 [facility] [employer] [facility] 1999 panel - Serum or Plasm a carbon dioxide, total [moles/volum e] in serum or plasma 30 mmol/ L low: 22mmol /Lhigh : 29mmol /L high Not Available Not Available 04/02/2025 23:10:59 04/02/20 25 04/02/2025 [facility] [employer] ic 1999 panel - Serum or Plasm a calcium [mass/volume ] in serum or plasma 8.6 mg/dL low: 8.4mg/ dLhigh : 10.4mg /dL Not Available Not Available 04/02/2025 23:10:59 04/02/20 25 04/02/2025 [facility] [employer] [facility] 1999 panel - Serum or Plasm a anion gap in blood by calculation 14 mmol/ L low: 6mmol/ Lhigh: 16mmol /L Not Available Not Available 04/02/2025 23:10:59 04/02/20 25 04/02/2025 [facility] [employer] [facility] 1999 panel - Serum or Plasm a urea nitrogen [mass/volume ] in serum or plasma 12 mg/dL low: 7mg/dL high: 26mg/d L Not Available Not Available 04/02/2025 23:10:59 04/02/20 25 04/02/2025 [facility] [employer] [facility] 1999 panel - Serum or Plasm a creatinine [mass/volume ] in serum or plasma 1.2 mg/dL low: 0.72mg /dLhig h: 1.25mg /dL Not Available Not Available 04/02/2025 23:10:59 04/02/20 25 04/02/2025 [facility] 1999 panel - Serum or Plasm a alkaline phosphatase [enzymatic activity/vol ume] in serum or plasma 133 U/L low: 40U/Lh igh: 150U/L Not Available Not Available 04/02/2025 23:10:59 04/02/20 25 04/02/2025 [facility] 1999 panel - Serum or Plasm a alanine aminotransfe rase [enzymatic activity/vol ume] in serum or plasma 78 U/L low: 6U/Lhi gh: 57U/L high Not Available Not Available 04/02/2025 23:10:59 04/02/20 25 04/02/2025 [facility] [place] [address] panel - Serum or Plasm a aspartate aminotransfe rase [enzymatic activity/vol ume] in serum or plasma 91 U/L low: 10U/Lh igh: 48U/L high Not Available Not Available 04/02/2025 23:10:59 04/02/20 25 04/02/2025 [facility] [place] [address] panel - Serum or Plasm a protein [mass/volume ] in serum or plasma 7.2 text: 6.4 - 8.3 gm/dL Not Available Not Available 04/02/2025 23:10:59 04/02/20 25 04/02/2025 [facility] [place] [address] panel - Serum or Plasm a albumin [mass/volume ] in serum or plasma 3.4 text: 3.1 - 4.5 gm/dL Not Available Not Available 04/02/2025 23:10:59 04/02/20 25 04/02/2025 [facility] [place] [address] panel - Serum or Plasm a bilirubin.to [...] . Not Available Not Available 04/02/2025 23:10:59 04/02/20 25 04/02/2025 Compr ehens cody metab olic 1999 panel - Serum or Plasm a interpretati on and review of laboratory results Abnorm al Not Available Not Available 23:10:59 04/19/20 25 04/20/2025 BASIC METAB OLIC PANEL (8) glucose 155 mg/dL 70-99 above high normal Not Available [facility] ([facility]) [address] [place], [address], 04/20/2025 08:33:28 04/19/20 25 04/20/2025 BASIC METAB OLIC PANEL (8) BUN 7 mg/dL 8-27 below low normal Not Available [facility] ([facility]) [address] [place], [address], 04/20/2025 08:33:28 04/19/20 25 04/20/2025 BASIC METAB OLIC PANEL (8) creatinine 0.87 mg/dL 0.76-1 .27 Not Available [facility] ([facility]) [address] [place], [address], 04/20/2025 08:33:28 04/19/20 25 04/20/2025 BASIC METAB OLIC PANEL (8) eGFR 95 mL/mi n/1.7 3 >59 Not Available [facility] ([facility]) [address] [place], [address], 04/20/2025 08:33:28 04/19/20 25 04/20/2025 BASIC METAB OLIC PANEL (8) BUN/creatini ne ratio 8 10-24 below low normal Not Available [facility] ([facility]) [address] [facility], [place], [address], 04/20/2025 08:33:28 04/19/20 25 04/20/2025 BASIC METAB OLIC PANEL (8) sodium 140 mmol/ L 134-14 4 Not Available [facility] ([facility]) [address] [facility], [place], [address], 04/20/2025 08:33:28 04/19/20 25 04/20/2025 BASIC METAB OLIC PANEL (8) potassium 3.9 mmol/ L 3.5-5. 2 Not Available [facility] ([facility]) [address] [facility], [place], [address], 04/20/2025 08:33:28 04/19/20 25 04/20/2025 BASIC METAB OLIC PANEL (8) chloride 101 mmol/ L 96-106 Not Available [facility] ([facility]) [address] [facility], [place], [address], 04/20/2025 08:33:28 04/19/20 25 04/20/2025 BASIC METAB OLIC PANEL (8) carbon dioxide, total 25 mmol/ L 20-29 Not Available [facility] ([facility]) [address] [facility], [place], [address], 04/20/2025 08:33:28 04/19/20 25 04/20/2025 BASIC METAB OLIC PANEL (8) calcium 9.2 mg/dL 8.6-10 .2 Not Available [facility] ([facility]) [address] [facility], [place], [address], 04/20/2025 08:33:28 05/10/20 05/11/2025 NT-IA OBNP nt-probnp 118 pg/mL 0-376 The follo [...] enden t 300 pg/mL Not Available [facility] ([facility]) [address] [facility], [place], [address], 05/11/2025 09:39:46 05/10/2005/10/2025 BASIC METAB OLIC PANEL [...] at [email or web address] [email or web address]. org. Not Available [facility] ([facility]) [address] [facility], [place], [address], 05/11/2025 09:39:46 05/10/2005/11/2025 BASIC METAB OLIC PANEL (8) glucose 230 mg/dL 70-99 above high normal Not Available [facility] ([facility]) [address] [facility] [place], [address], 05/11/2025 09:39:46 05/10/20 25 05/11/2025 BASIC METAB OLIC PANEL (8) BUN 6 mg/dL 8-27 below low normal Not Available [facility] ([facility]) [address] [facility] [place], [address], 05/11/2025 09:39:46 05/10/20 25 05/11/2025 BASIC METAB OLIC PANEL (8) creatinine 1.06 mg/dL 0.76-1 .27 Not Available [facility] ([facility]) [address] [facility] [place], [address], 05/11/2025 09:39:46 05/10/20 25 05/11/2025 BASIC METAB OLIC PANEL (8) eGFR 77 mL/mi n/1.7 3 >59 Not Available [facility] ([facility]) [address] [facility] [place], [address], 05/11/2025 09:39:46 05/10/20 25 05/11/2025 BASIC METAB OLIC PANEL (8) BUN/creatini ne ratio 6 10-24 below low normal Not Available [facility] ([facility]) [address] [facility] [place], [address], 05/11/2025 09:39:46 05/10/20 25 05/11/2025 BASIC METAB OLIC PANEL (8) sodium 139 mmol/ L 134-14 4 Not Available [facility] ([facility]) [address] [facility] [place], [address], 05/11/2025 09:39:46 05/10/20 25 05/11/2025 BASIC METAB OLIC PANEL (8) potassium 3.8 mmol/ L 3.5-5. 2 Not Available [facility] ([facility]) [address] [place], [address], 05/11/2025 09:39:46 05/10/2005/11/2025 BASIC METAB OLIC PANEL (8) chloride 95 mmol/ L 96-106 below low normal Not Available [facility] ([facility]) [address] [facility], [place], [address], 05/11/2025 09:39:46 05/10/20 25 05/11/2025 BASIC METAB OLIC PANEL (8) carbon dioxide, total 28 mmol/ L 20-29 Not Available [facility] ([facility]) [address] [facility], [place], [address], 05/11/2025 09:39:46 05/10/2005/11/2025 BASIC METAB OLIC PANEL (8) calcium 9.1 mg/dL 8.6-10 .2 Not Available [facility] ([facility]) [address] [facility], [place], [address], 05/11/2025 09:39:46 Result Notes None recorded. Problems Name Problem SNOMED Code Status Onset Date Resolution Date Notes Provider Name and Address Organization Details Recorded Time Type 2 diabetes mellitus without complicatio n 873690197 Active 2023 Patricia Wolfe APN, FNP-C Attn: Sanford shirley,[address] [facility], [place], [address], [facility] [place] 4 10:32:20 Essential hypertensio n 85611013 Active 2023 Patricia Wolfe APN, FNP-C Attn: Sanford shirley,[address] [facility], [place], [address], [facility] - [place] 4 10:32:23 Benign prostatic hyperplasia 444526607 Active 2023 Patricia Wolfe APN, FNP-C Attn: Sanford shirley,[address] [place], [address], [facility] 4 10:35:30 Mixed anxiety and depressive disorder 639645435 Active 2023 Patricia Wolfe APN, FNP-C Attn: Sanford shirley,[address] [facility], [place], [address], [facility] - [facility] 4 10:35:32 Hyperlipide nelda 88975651 Active 2023 Patricia Wolfe JEWELLERY DESIGNER, ADULT REMEDIAL EDUCATION INSTRUCTOR-C Attn: Sanford shirley,[address] [facility], [place], [address], [facility] - [facility] 4 09:38:48 Neuropathy due to type 2 diabetes mellitus 9069057788708 06 Active 2023 Patricia Wolfe JEWELLERY DESIGNER, ADULT REMEDIAL EDUCATION INSTRUCTOR-C Attn: Sanford shirley,[address] [facility], [place], [address], [facility] - [facility] 4 09:16:32 Stasis dermatitis 14569742 Active 2024 Patricia Wolfe APN, ADULT REMEDIAL EDUCATION INSTRUCTOR-C Attn: Sanford shirley,[address] [facility], [place], [address], [facility] - [facility] 5 14:23:50 Problem Notes None recorded. Procedures Surgical History Date Name Laterality Status Provider Name and Address Organization Details Recorded Time 3 cataract surgery completed [place] 11/12/2023 10:20:58 1 Prostate Biopsy completed [place] 11/12/2023 10:21:57 9 cataract surgery completed [place] 11/12/2023 10:20:41 colonoscopy completed Gloria Rangel [place] 11/12/2023 10:21:30 Imaging Results None recorded. Procedure Notes None recorded. Medical Equipment None Reported. Allergies Allergen ID Allergen Name Allergen Category Reaction Reaction Severity Criticality Documentation Date Start Date Code Code System Note Provider Name and Address Organization Details Recorded Time 19691210 lisinopri l medicatio n Not available Not available Not available 04/30/20252015 35418 RxNorm IGNACIO Abdalla [place] 5 13:22:23 223855 acetamino phen / oxycodone medicatio n Not available Not available Not available 04/30/2025 84574 3 RxNorm Tiffanie Martinez MA [facility] [place] - [place] 13:22:26 Medications Name Sig Start [...] Updated DateTime 5 179.07 cm 31.7 kg/m2 623229. 69 g 88 /min 96 % 150/82 mm[Hg] Love Cooper RN [facility] 09:30:21 Social History Question Answer Notes LastModified by Organizat ion Details LastModified Time Tobacco Smoking Status Former Smoker quit 2013 [place], [facility] 11/12/2023 10:18:15 Are You Blind Or Do [...] anxious, or unable to sleep at night)? [id number] Information not available 11/12/2023 Family History Relationship Description Onset Age of this Age Resolved Age Notes LastModified by Organization Details LastModified Time Mother Myocardial infarction [email or web address] Not available 04/2024 10:15:50 Medical History Condition Response Coronary Artery Disease N High Blood Pressure Y Atrial Fibrillation N Thyroid Problems N Kidney or Bladder Problems N GI Problems N Depression N COPD N Blood Clots N Skin Problems N Eating Disorder N Anemia N Heart Attack (MD) N Diabetes Y Anxiety Disorder N Muscle, [...] ICD10 Code Diagnosis IMO Codes Diagnosis Note [id number] Gal Gallagher MD [facility] [place] [address] [place] [address] 04/30/2025 09:14:14 05/03/2025 11:43:33 Obese class I 2217702492 35062 E66.811 E66.3 [id number] Working on diet/exerc ise with good results Essential hypertension 95947627 I10 42048 change add antiplatel et therapy to hydralazin e 100 b.i.d.. on clonidine 0.2 to be taken up to twice a day PRN. currently hold telmisarta n which he is not taking until he follows up with Nephrology . No beta renuka due to relative bradycardi a. Acute on c hronic diastolic heart failure 358028427 I50.33 [id number] Previously was supposed to be on torsemide 20 b.i.d. but currently not taking any diuretics. Resume at 10 mg daily. Encouraged low-sodium diet, heart failure precaution s. Check proBNP and basic metabolic panel in 10 days and route results to patient's nephrology team also. Obstructiv e sleep apnea syndrome 84569670 G47.33 954233 Has done sleep study. Plans to start CPAP within the next 10 days. Expect improvemen t in his blood pressure once ANGELA optimized. Plan routine cardiology follow-up 4 weeks and PRN Health Concerns Section Related Observation LastModified by Organization Detai ls LastModified Time None Recorded Concern Status LastModified by Organization Details LastModified Time None Recorded Payers Encounter Date Sequence Insurance Name Policy Number Policy Conde Covered Member ID Conde Member ID Guarantor Name 04/30/2025 1 [place] Jamar Mesa [id number] Jamar Mesa 04/30/2025 2 [employer] [place] [place] (MEDICARE SUPPLEMENT) Jamar Mesa [id number] Jamar Mesa Notes Date Note Type Note Provider Name and Address Organization Details Recorded Time 04/30/2025 text/html ROS as noted in the HPI 69-year-old with resistant hypertension, HFpEF, CKD stage 4, Type 2 diabetes, obesity, mixed hyperlipidemia and history of nicotine use presents for follow-up. Interval history:Recently hospitalized at [facility] with constipation, SANTY, urinary retention. Has seen [...] placement versus age-indeterminate anteroseptal infarct. Transthoracic echocardiogram, [facility], 11/12/2024: LVEF 66%, trace mitral regurgitation, mild left atrial enlargement, no pulmonary hypertension Gal Gallagher MD Attn: Accounting,[address] [facility], [place], [address], [facility] 04/30/2025 09:52:44
--- OUTSIDE RECORDS SUMMARY | 2025-07-25 08:30 | XMS_ITS | Encounter Summary ---
Author Organization [facility] Address [address] [place] [address] Care Team Providers Care Rail Car Repairman Name Role Phone Unavailable Primary Care Provider Unavailabl e Reason for Visit * Reason Comments Medication Refill Encounter Details Date Type Department Care Team (Late st Contact Info) Description 01/11/2019 Refill [facility] Primary Care - [address] [place] [phone] Gee Hoffmann, [address] [place] [phone] Social History Tobacco Use Types Packs/Day Years Used Date Smoking Tobacco: Former Cigarettes Alcohol Use Standard Drinks/Week Comments Yes 0 (1 standard drink = 0.6 oz pur e alcohol) Sex and Gender Information Value Date Recorded Sex Assigned at Not on file 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
--- OUTSIDE RECORDS SUMMARY | 2025-07-25 08:30 | XMS_ITS | Clinical Summary ---
Author Organization [facility] Address [address] [place] [address] Care Team Providers Care Operational Assistant Name Role Phone SergePatricia Monika WHITE Primary Care Provider Allergies No known active allergies Medications amLODIPine (NORVASC) 5 mg tablet 02/24/2025 Active atorvastatin (LIPITOR) 40 mg tablet 04/28/2018 Active blood glucose diagnostic strip Patient checking sugar daily. 05/01/2017 Active blood-glucose meter misc Patient checking sugar daily.. 05/01/2017 Active escitalopram (LEXAPRO) 20 mg tablet Take 1 tablet (20 mg total) by mouth daily 05/22/2018 Active felodipine (PLENDIL) 10 mg 24 hr tablet 01/08/2025 Active gabapentin (NEURONTIN) 100 mg capsule 02/08/2025 Active glimepiride (AMARYL) 4 mg tablet 01/25/2025 [facility] Patient checking sugar daily.. 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 Gender Identity Not on file Sexual Orientation Not on file Last Filed Vital Signs Vital Sign Reading Time Taken Comments Blood Pressure 192/84 03/02/2025 10:43 AM CDT Pulse 93 03/02/2025 10:43 AM CDT Temperature 37.1 C (98.7 F) 03/02/2025 10:43 AM CDT Respiratory Rate 20 03/02/2025 10:43 AM CDT Oxygen Saturation 98% 03/02/2025 10:43 AM CDT Inhaled Oxygen Concentration - - Weight 105.2 kg (232 lb) 03/02/2025 10:43 AM CDT Height 177.8 cm (5' 10) 03/02/2025 10:43 AM CDT Body Mass Index 33.29 03/02/2025 10:43 AM CDT Plan of Treatment Health Maintenance Due Date Last Done Comments Colon Cancer Screening-Colonoscopy 1957 Depression Screening 1957 Fall Risk Assessment 1957 Hepatitis C Screening 1957 Prostate Cancer Screening-PSA 1957 DTaP/Tdap/Td Vaccine (1 - Tdap) 1968 Hepatitis B Screening 11/27/1975 Pneumococcal vaccine 65+ (1 of 1 - PCV) 11/27/2007 Zoster Vaccine (1 of 2) 11/27/2007 Well Visit 65+ 2022 Influenza Vaccine (#1) 2025 Abdominal Aortic Aneurysm (AAA) Screen Completed Insurance MEDICARE [facility] Care Teams Operational Assistant Relationship Specialty Start Date End Date Valentine, Patricia Frank NP [address] [place] [address] PCP - General Nurse Practitioner 10/30/24
--- OUTSIDE RECORDS SUMMARY | 2025-07-25 08:30 | XMS_ITS | Encounter Summary ---
Author Organization [facility] Address [address] [place] [address] Care Team Providers Care Driver Service Technician Name Role Phone Perry New MD Primary Care Provider [phone] Negrito Maria MD Unavailable Unavailable Sandra Isaacs CAMPAIGN SPECIALIST-DESKTOP SUPPORT ASSOCIATE Unavailable [phone] Chandra Collins DO Primary Care Provider [phone] Patricia Valentine CAMPAIGN SPECIALIST-DESKTOP SUPPORT ASSOCIATE Primary Care Provider [phone] Encounter Details Date Type Department Care Team (Late st Contact Info) Description 10/04/2010 [facility] Outpatient Visit 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 Not on file Not on file documented as of this encounter Plan of Treatment Not on file documented as of this encounter Visit Diagnoses Not on filedocumented in this encounter Care Teams Driver Service Technician Relationship Specialty Start Date End Date Perry New MD [address] [place] [address] PCP - General 06/06/10 10/09/18 Chandra Collins DO [address] [place], [place] [phone] PCP - General Family Medicine 10/10/18 03/10/25 Patricia Valentine APRN-DESKTOP SUPPORT ASSOCIATE [address] [place] [phone] PCP - General Nurse Practitioner Family 03/11/25 Negrito Maria MD [address] [place] [address] Oncology 07/25/11 Sandra Isaacs APRN-DESKTOP SUPPORT ASSOCIATE [address] [facility] [address] [place] [address] Nurse Practitioner 07/25/11 documented as of this encounter
--- OUTSIDE RECORDS SUMMARY | 2025-07-25 08:30 | XMS_ITS | Continuity of Care Document ---
Author Organization [place] [facility], [facility] Address [address] [place] [address] Care Team Providers Care Personal Lines Agent Name Role Phone PATRICIA WOLFE Primary Care Provider Assessment No assessment recorded. Plan of Treatment Reminders Order Date Submit Date Provider Last Modified By Organization Details Last Modified Time Details Appointments ANY 2025 07:45A M Patricia Wolfe APN, DYE BOX OPERATOR-C Not available Not available Not available ANY 2025 08:15A M Gal Gallagher MD Not available Not available Not available Lab CMP, serum or plasma 2024 026 [email or web address] [facility], [address] [facility] [address], [address], 07/09/2025 09:57:03 Referral None recorded . Procedures None recorded . Surgeries None recorded . Imaging pharmaco logic nuclear stress test - Pharmaco logic nuclear stress test 2024 025 [facility], [address] , [facility], [place], [address], 07/16/2025 16:25:43 Medication Orders olmesart an 20 mg tablet 2024 025 [facility], [address] [facility], [place], [address], 07/09/2025 09:57:05 Kerendia 20 mg tablet 2024 025 [facility], [address], [place], [address], 07/11/2025 05:01:57 torsemid e 20 mg tablet 2024 025 [facility], [address] , [place], [address], 07/12/2025 14:43:54 Patient TargetsNo targets recorded. Patient Instructions Encounter Date Encounter Id Patient Instructions Last Modified By Organization Details Last Modified Time 07/09/2025 [id number] A healthy lifestyle: care instructions [email or web address] Not available 07/09/2025 09:57:03 Start Olmesartan 20 mg once a day Labs in 4 weeks Stress test in about 2 months Follow up in about 3 months [email or web address] Not available 07/09/2025 09:56:43 Reason for Referral None Reported. Results Created Date Observation Date Name Description Value Unit Range Abnormal Flag Note LastModifiedBy Organization Detail LastModifiedTime 06/09/2006/10/2025 NT-NJ OBNP nt-probnp 133 pg/mL 0-376 The follo [...] enden t 300 pg/mL Not Available [facility] ([facility]) [address] [facility], [place], [address], 06/10/2025 04:36:22 06/09/20 25 06/10/2025 BMP7+ EGFR glucose 216 mg/dL 70-99 above high normal Not Available [facility] ([facility]) [address] [facility], [place], [address], 06/10/2025 04:36:22 06/09/20 25 06/10/2025 BMP7+ EGFR BUN 13 mg/dL 8-27 Not Available [facility] ([facility]) [address] [facility], [place], [address], 06/10/2025 04:36:22 06/09/20 25 06/10/2025 BMP7+ EGFR creatinine 1.11 mg/dL 0.76-1 .27 Not Available [facility] ([facility]) [address] [place], [address], 06/10/2025 04:36:22 06/09/20 25 06/10/2025 BMP7+ EGFR eGFR 73 mL/mi n/1.7 3 >59 Not Available [facility] ([facility]) [address] [place], [address], 06/10/2025 04:36:22 06/09/20 25 06/10/2025 BMP7+ EGFR sodium 135 mmol/ L 134-14 4 Not Available [facility] ([facility]) [address] [place], [address], 06/10/2025 04:36:22 06/09/20 25 06/10/2025 BMP7+ EGFR potassium 3.2 mmol/ L 3.5-5. 2 below low normal Not Available [facility] ([facility]) [address] [place], [address], 06/10/2025 04:36:22 06/09/20 25 06/10/2025 BMP7+ EGFR chloride 87 mmol/ L 96-106 below low normal Not Available [facility] ([facility]) [address] [place], [address], 06/10/2025 04:36:22 06/09/20 25 06/10/2025 BMP7+ EGFR carbon dioxide, total 30 mmol/ L 20-29 above high normal Not Available [facility] ([facility]) [address] [facility], [place], [address], 06/10/2025 04:36:22 06/14/2006/14/2025 HbA1c (hemo globi n A1c), blood HbA1C 8.1 % Not Available In-Office Order Internal Use Only DO Not Attach Compendium DO Not Attach Compendium, Do Not Delete/merge, [id number] 06/14/2025 08:45:27 06/30/2006/30/2025 BASIC METAB OLIC PANEL [...] at www.k [email or web address] org. Not Available [facility] ([facility]) [address] [facility], [place], [address], 07/01/2025 08:40:19 06/30/20 25 07/01/2025 BASIC METAB OLIC PANEL (8) glucose 201 mg/dL 70-99 above high normal Not Available [facility] ([facility]) [address] [facility], [place], [address], 07/01/2025 08:40:19 06/30/20 25 07/01/2025 BASIC METAB OLIC PANEL (8) BUN 8 mg/dL 8- Not Available [facility] ([facility]) [address] [facility], [place], [address], 07/01/2025 08:40:19 06/30/20 25 07/01/2025 BASIC METAB OLIC PANEL (8) creatinine 1.10 mg/dL 0.76-1 .27 Not Available [facility] ([facility]) [address] [place], [address], 07/01/2025 08:40:19 06/30/20 25 07/01/2025 BASIC METAB OLIC PANEL (8) eGFR 74 mL/mi n/1.7 3 >59 Not Available [facility] ([facility]) [address] [place], [address], 07/01/2025 08:40:19 06/30/2007/01/2025 BASIC METAB OLIC PANEL (8) BUN/creatini ne ratio 7 10-24 below low normal Not Available [facility] ([facility]) [address] [place], [address], 07/01/2025 08:40:19 06/30/20 25 07/01/2025 BASIC METAB OLIC PANEL (8) sodium 136 mmol/ L 134-14 4 Not Available [facility] ([facility]) [address] [place], [address], 07/01/2025 08:40:19 06/30/20 25 07/01/2025 BASIC METAB OLIC PANEL (8) potassium 3.7 mmol/ L 3.5-5. 2 Not Available [facility] ([facility]) [address] [place], [address], 07/01/2025 08:40:19 06/30/20 25 07/01/2025 BASIC METAB OLIC PANEL (8) chloride 93 mmol/ L 96-106 below low normal Not Available [facility] ([facility]) [address] [place], [address], 07/01/2025 08:40:19 06/30/20 25 07/01/2025 BASIC METAB OLIC PANEL (8) carbon dioxide, total 25 mmol/ L 20 Not Available [facility] ([facility]) [address] [place], [address], 07/01/2025 08:40:19 06/30/2007/01/2025 BASIC METAB OLIC PANEL (8) calcium 9.4 mg/dL 8.6-10 .2 Not Available [facility] ([facility]) [address] [place], [address], 07/01/2025 08:40:19 06/30/2006/30/2025 BASIC METAB OLIC PANEL [...] at www.k doqi. org. Not Available [facility] ([facility]) [address] [place], [address], 07/02/2025 09:36:41 06/30/2007/01/2025 BASIC METAB OLIC PANEL (8) glucose 201 mg/dL 70-99 above high normal Not Available [facility] ([facility]) [address] [place], [address], 07/02/2025 09:36:41 06/30/20 25 07/01/2025 BASIC METAB OLIC PANEL (8) BUN 8 mg/dL 8- Not Available [facility] ([facility]) [address] [place], [address], 07/02/2025 09:36:41 06/30/2007/01/2025 BASIC METAB OLIC PANEL (8) creatinine 1.10 mg/dL 0.76-1 .27 Not Available [facility] ([facility]) [address] [facility] [place], [address], 07/02/2025 09:36:41 06/30/2007/01/2025 BASIC METAB OLIC PANEL (8) eGFR 74 mL/mi n/1.7 3 >59 Not Available [facility] ([facility]) [address] [facility] [place], [address], 07/02/2025 09:36:41 06/30/2007/01/2025 BASIC METAB OLIC PANEL (8) BUN/creatini ne ratio 7 10-24 below low normal Not Available [facility] ([facility]) [address] [place], [address], 07/02/2025 09:36:41 06/30/2007/01/2025 BASIC METAB OLIC PANEL (8) sodium 136 mmol/ L 134-14 4 Not Available [facility] ([facility]) [address] [place], [address], 07/02/2025 09:36:41 06/30/2007/01/2025 BASIC METAB OLIC PANEL (8) potassium 3.7 mmol/ L 3.5-5. 2 Not Available [facility] ([facility]) [address] [facility] [place], [address], 07/02/2025 09:36:41 06/30/2007/01/2025 BASIC METAB OLIC PANEL (8) chloride 93 mmol/ L 96-106 below low normal Not Available [facility] ([facility]) [address] [place], [address], 07/02/2025 09:36:41 06/30/2007/01/2025 BASIC METAB OLIC PANEL (8) carbon dioxide, total 25 mmol/ L 20-29 Not Available [facility] ([facility]) [address] [facility], [place], [address], 07/02/2025 09:36:41 06/30/2007/01/2025 BASIC METAB OLIC PANEL (8) calcium 9.4 mg/dL 8.6-10 .2 Not Available [facility] ([facility]) [address] [facility], [place], [address], 07/02/2025 09:36:41 Result Notes None recorded. Problems Name Problem SNOMED Code Status Onset Date Resolution Date Notes Provider Name and Address Organization Details Recorded Time Type 2 diabetes mellitus without complicatio n 819086917 Active 2023 Patricia Wolfe APN, FNP-C Attn: Sanford shirley,[address] [place], [place], [address] [place] [address] 2, [facility] 4 10:32:20 Essential hypertensio n 20598016 Active 2023 Patricia Wolfe APN, FNP-C Attn: Sanford shirley,[address] [place], [place], [address] [place] [address] 2, [facility] 4 10:32:23 Benign prostatic hyperplasia 651048562 Active 2023 Patricia Wolfe APN, FNP-C Attn: Sanford shirley,[address] [place], [place], [address] [place] [address] 2, [facility] 4 10:35:30 Mixed anxiety and depressive disorder 074672473 Active 2023 Patricia Wolfe APN, FNP-C Attn: Sanford shirley,[address] [place], [place], [address] [place] [address] 2, [facility] 4 10:35:32 Hyperlipide nelda 21512520 Active 2023 Patricia Wolfe APN, FNP-C Attn: Sanford shirley,[address] [place], [address], [place] 4 09:38:48 Neuropathy due to type 2 diabetes mellitus 1953283005424 06 Active 2023 Patricia Wolfe APN, DYE BOX OPERATOR-C Attn: Sanford shirley,[address], [place], [address], [place] - [facility] 4 09:16:32 Stasis dermatitis 25131541 Active 2024 Patricia Wolfe APN, DYE BOX OPERATOR-C Attn: Accountgalilea shirley,[address], [place], [address], [place] 5 14:23:50 Problem Notes None recorded. Procedures Surgical History Date Name Laterality Status Provider Name and Address Organization Details Recorded Time 3 cataract surgery completed Gloria Rangel Erik [facility] 11/12/2023 10:20:58 1 Prostate Biopsy completed Gloria Rangel Erik [facility] 11/12/2023 10:21:57 9 cataract surgery completed Gloria Rangel Erik [place] [facility] 11/12/2023 10:20:41 colonoscopy completed Gloria Rangel Erik [facility] 11/12/2023 10:21:30 Imaging Results None recorded. Procedure Notes None recorded. Medical Equipment None Reported. Allergies Allergen ID Allergen Name Allergen Category Reaction Reaction Severity Criticality Documentation Date Start Date Code Code System Note Provider Name and Address Organization Details Recorded Time 19691210 lisinopri l medicatio n Not available Not available Not available 04/30/20252015 54627 RxNorm IGNACIO Abdalla [place] - [place] 5 13:22:23 19691211 acetamino phen / oxycodone medicatio n Not available Not available Not available 04/30/2025 07647 3 IGNACIO Torrez [place] - [facility] 5 13:22:26 Medications Name Sig Start Date Stop [...] Updated DateTime 5 179.07 cm 30.8 kg/m2 88652.1 4 g 78 /min 98 % 130/62 mm[Hg] Tiffanie Martinez MA [place] - [facility] 09:39:36 Social History Question Answer Notes LastModified by Organizat ion Details LastModified Time Tobacco Smoking Status Former Smoker quit 2013 [place] - [facility] 11/12/2023 10:18:15 Are You [...] anxious, or unable to sleep at night)? [id number] Information not available 11/12/2023 Family History Relationship [...] Eating Disorder N Anemia N Heart Attack ([place]) N Anxiety Disorder N Diabetes Y Muscle, [...] ICD10 Code Diagnosis IMO Codes Diagnosis Note [id number] Gal Gallagher MD [facility] [place] [address] [place] [phone] 06/11/2025 09:15:39 06/15/2025 12:03:38 Essential hypertension 92035652 I10 58672 Continue clonidine 0.2 t.i.d., hydralazin e 100 [...] also discussed. Obstructiv e sleep apnea syndrome 11436073 G47.33 285227 Recently started using CPAP. Anticipate improvemen t in blood pressure with optimizati on of ANGELA. Acute on c hronic diastolic heart failure 834414918 I50.33 825703 Given hypokalemi a and improvemen t in volume status, change torsemide from 20 mg b.i.d. to 20 mg daily. Intolerant to spironolac tone with breast tenderness . We will discontinu e initiate currently at 20 mg daily. Side effect profile discussed. Obtain basic metabolic panel in 3 weeks. Follow-up July 05 as previously scheduled. On behalf of the Cardiovasc ular Services at [facility] , we appreciate the opportunit y to participat e in the care of your patient. Please feel free to reach out to us for any questions regarding your patient's cardiac care. Gal Gallagher MD, [facility] , Cardiology Ph: [phone]: [phone] MD Yoni Gonzalez (Adult Med) [address] [place] [address] 06/14/2025 08:28:37 06/18/2025 16:37:27 Essential hypertension 61532660 I10 cont following with cardiodiet changes advised Neuropathy due to type 2 diabetes mellitus 3359671107 90760 E11.40 a1c last was 6.3, 5: 7.8 at [facility] 5: 8.1 cont current plan:glime pride 4 mg qdmetformi n 500 mg biddwp eye exam, proper foot care, diet compliance sees podiatry;- cont gabapentin 100 mg tid Mixed anxi ety and depressive disorder 608100974 F41.8 pt thinks more anxiety and depression /ptsd; stable on med, no SI or HIcont current dose Hyperlipidemia 75292583 E78.5 cont statin, diet changes advised Venous sta sis edema of bilateral lower limbs 8502571383 0324225 I87.2 leg wound healed, some mild edema present,cu rrently on torsemide 20 mg Obese class I 7703439725 10945 E66.811 2206069860 advised pt on proper nutrition and hydration Chronic constipation 236 685911 K59.09 315627 cont metamucil and will add miralax prn [id number] Gal Gallagher MD [facility] [place] [address] [place] [address] 07/09/2025 09:24:04 07/12/2025 15:21:44 Acute on chronic diastolic heart failure 780150652 I50.33 Maintained on Kerendia 20 mg daily. Maintained on torsemide 20 mg daily for loop diuretic which we will continue. Reinforced low-sodium diet. In light of exertional dyspnea, abnormal EKG with diastolic heart failure discussed options of ischemia evaluation . After shared decision-m aking obtain pharmacolo gic nuclear stress test given inability to exercise secondary to his orthopedic limitation s with lower extremity venous stasis changes and back pain. ER precaution s in the interim discussed. Obese class I 3512873778 29996 E66.811 E66.3 8727632006 Lifestyle instructio ns discussed Chronic ki dney disease stage 3B 197759339 N18.32 8829519938 Reinforced need to hydrate at least 64 oz water daily which he is more compliant with now. Check follow-up labs including renal/live r function panel. Labs 06/30/2025 reviewed with EGFR 74, potassium 3.7. Essential hypertension 65475155 I10 22374 Continue hydralazin e 100 t.i.d., clonidine 0.2 [...] if symptoms. Type 2 winnie betes mellitus 99196705 E11.22 N18.32 3905240963 A1c 8.1 in June 2025. Following with PCP. We will consider Jardiance from a cardiovasc ular standpoint based on follow-up renal function. Mixed hyperlipidemia 267 657225 E78.2 85343 Continue atorvastat in 40 mg daily. Last labs from 10/26/2024 show LDL 64, HDL 58, TG 205. Ongoing lifestyle modificati ons reinforced . We will request a routine follow-up in 3 months for ongoing monitoring of above-ment ioned cardiac conditions . Patient aware to contact us sooner if any cardiac issues arise. On behalf of the Cardiovasc ular Services at [facility] , we appreciate the opportunit y to participat e in the care of your patient. Please feel free to reach out to us for any questions regarding your patient's cardiac care. Gal Gallagher MD, [facility] , Cardiology Ph: [phone]: [phone] Fax: [phone] On behalf of the Cardiovasc ular Services at [facility] , we appreciate the opportunit y to participat e in the care of your patient. Please feel free to reach out to us for any questions regarding your patient's cardiac care. Gal Gallagher MD, [facility] , Cardiology Ph: [phone]: [phone] Health Concerns Section Related Observation LastModified by Organization Detai ls LastModified Time None Recorded Concern Status LastModified by Organization Details LastModified Time None Recorded Payers Encounter Date Sequence Insurance Name Policy Number Policy Conde Covered Member ID Conde Member ID Guarantor Name 07/09/2025 1 [place] Jamar Mesa [id number] Jamar Mesa 07/09/2025 2 [facility] (MEDICARE SUPPLEMENT) Jamar Mesa [id number] Jamar Mesa Notes Date Note Type Note Provider Name and Address Organization Details Recorded Time 07/09/2025 text/html ROS as noted in the [...] placement versus age-indeterminate anteroseptal infarct. Transthoracic echocardiogram, [facility], 11/12/2024: LVEF 66%, trace mitral regurgitation, mild left atrial enlargement, no pulmonary hypertension Gal Glalagher MD Attn: Accounting,[address] [facility], [place], [address], [facility] 07/09/2025 14:50:50
--- OUTSIDE RECORDS SUMMARY | 2025-07-25 08:30 | XMS_ITS | Encounter Summary ---
Author Organization [facility] Address [address] [place] [address] Care Team Providers Care Business Process Coordinator Name Role Phone Unavailable Primary Care Provider Unavailabl e Reason for Visit * Reason Comments Medication Refill Encounter Details Date Type Department Care Team (Late st Contact Info) Description 12/01/2018 Refill [facility] Primary Care - [address] [place] [phone] Gee Hoffmann, [address] [place] [phone] Social History Tobacco Use Types Packs/Day Years Used Date Smoking Tobacco: Former Cigarettes Alcohol Use Standard Drinks/Week Comments Yes 0 (1 standard drink = 0.6 oz pur e alcohol) Sex and Gender Information Value Date Recorded Sex Assigned at Not on file 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
[2025-07-25 08:31] VITALS: BP 162/49; PULSE 96; RESP 18; TEMP 36.4; O2SAT 100
--- NOTE | 2025-07-25 10:34 | PC.NURSE ---
Patient presents to the desk stating 'Im leaving before I . This RN apologized to patient about wait times. Patient family states he has been here over 2 hours with paralysis. I asked patient if his symptoms have gotten worse and he states no, but im not sitting here any longer. This RN explained to patient that we would get him back as soon as we can. patient and family walked out of the department. patient A&Ox4 and ambulatory with steady gate
--- OUTSIDE RECORDS SUMMARY | 2025-07-25 12:18 | XMS_ITS | Encounter Summary ---
Author Organization [facility] Health Address [address] [place] [address] Care Team Providers Care Cpr Instructor Name Role Phone Perry New MD Primary Care Provider [phone] Negrito Maria MD Unavailable Unavailable Sandra Isaacs GLOBAL REGULATORY LEAD-BINGO FLOATER Unavailable [phone] Chandra Collins DO Primary Care Provider [phone] Patricia Valentine GLOBAL REGULATORY LEAD-BINGO FLOATER Primary Care Provider [phone] Encounter Details Date Type Department Care Team (Late st Contact Info) Description 06/01/2011 [facility] Outpatient Visit [facility] [address] [place] [address] Unknown, Provider Social History Tobacco Use Types Packs/Day Years Used Date Smoking Tobacco: Every Day Cigarettes 1 30 Comments:etq Alcohol Use Standard Drinks/Week Comments Yes 12.5 (1 standard drink = 0.6 oz pure alcohol) encouraged to cut down Sex and Gender Information Value Date Recorded Sex Assigned at Not on file 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 Gender Identity Not on file Sexual Orientation Not on file 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 Not on file Not on file documented as of this encounter Plan of Treatment Not on file documented as of this encounter Visit Diagnoses Not on filedocumented in this encounter Care Teams Cpr Instructor Relationship Specialty Start Date End Date Perry New MD [address] [place], [place] [id number] PCP - General 06/06/10 10/09/18 Chandra Collins DO [address] [place], [place] [id number] PCP - General Family Medicine 10/10/18 03/10/25 Patricia Valentine APRN-BINGO FLOATER [address] [place] [phone] PCP - General Nurse Practitioner Family 03/11/25 Negrito Maria MD [address] [place] [address] Oncology 07/25/11 Sandra Isaacs APRN-BINGO FLOATER [address] [facility] [address] [place] [address] Nurse Practitioner 07/25/11 documented as of this encounter
--- OUTSIDE RECORDS SUMMARY | 2025-07-25 12:18 | XMS_ITS | Clinical Summary ---
Author Organization [email or web address] [facility] Address [address] [facility] [place] [address] Phone Care Team Providers Care Retail Coverage Merchandiser Lead Name Role Phone Unavailable Primary Care Provider Unavailabl e Allergies No known active allergies Medications lancets (One Touch Delica) 33 gaugeIndications:O ther specified diabetes mellitus without complication, without long-term current use of insulin ([facility]) Patient checking sugar daily.. 100 Lancet 3 7 Active blood sugar diagnostic ([employer]OUCH VERIO) StripIndications:O ther specified diabetes mellitus without complication, without long-term current use of insulin ([facility]) Patient checking sugar daily. 100 Strip 3 7 Active Blood-Glucose Meter ([employer] ToddTOUCH VERIO SYSTEM)Indications :Other specified diabetes mellitus without complication, without long-term current use of insulin ([facility]) Patient checking sugar daily.. 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 Gender Identity Not on file Sexual Orientation Not on file Occupation Industry Job Start Date Job End Date Not on file Not on file Not on file Not on file Last Filed Vital Signs Vital Sign Reading Time Taken Comments Blood Pressure 115/70 07/10/2018 7:42 AM CASH PROCESSOR Pulse 81 05/22/2018 8:12 AM CDT Temperature 36.8 C (98.3 F) 05/22/2018 8:12 AM CDT Respiratory Rate 18 05/22/2018 8:12 AM CDT Oxygen Saturation 98% 05/22/2018 8:12 AM CDT Inhaled Oxygen Concentration - - Weight 99.8 kg (220 lb) 07/10/2018 7:42 AM CASH PROCESSOR Height 177.8 cm (5' 10) 07/10/2018 7:42 AM CASH PROCESSOR Body Mass Index 31.57 07/10/2018 7:42 AM CASH PROCESSOR Plan of Treatment Health Maintenance Due Date [...]
--- OUTSIDE RECORDS SUMMARY | 2025-07-25 12:18 | XMS_ITS | Encounter Summary ---
Author Organization [facility] Health Address [address] [place] [address] Care Team Providers Care Environmental Protection Specialist Name Role Phone Perry New MD Primary Care Provider [phone] Negrito Maria MD Unavailable Unavailable Sandra Isaacs RECYCLE COORDINATOR-VACCINATOR Unavailable [phone] Chandra Collins DO Primary Care Provider [phone] Patricia Valentine RECYCLE COORDINATOR-VACCINATOR Primary Care Provider [phone] Encounter Details Date Type Department Care Team (Late st Contact Info) Description 06/14/2011 [facility] Outpatient Visit [facility] [address] [place] [address] Unknown, Provider Social History Tobacco Use Types Packs/Day Years Used Date Smoking Tobacco: Every Day Cigarettes 1 30 Comments:etq Alcohol Use Standard Drinks/Week Comments Yes 12.5 (1 standard drink = 0.6 oz pure alcohol) encouraged to cut down Sex and Gender Information Value Date Recorded Sex Assigned at Not on file 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 Sex Male 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 Gender Identity Not on file Sexual Orientation Not on file 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 Not on file Not on file documented as of this encounter Plan of Treatment Not on file documented as of this encounter Visit Diagnoses Not on filedocumented in this encounter Care Teams Environmental Protection Specialist Relationship Specialty Start Date End Date Perry New MD [address] [place], [place] [id number] PCP - General 06/06/10 10/09/18 Chandra Collins DO [address] [place], [place] [id number] PCP - General Family Medicine 10/10/18 03/10/25 Patricia Valentine APRN-VACCINATOR [address] [place] [phone] PCP - General Nurse Practitioner Family 03/11/25 Negrito Maria MD [address] [place] [address] Oncology 07/25/11 Sandra Isaacs APRN-VACCINATOR [address] [facility] [address] [place] [address] Nurse Practitioner 07/25/11 documented as of this encounter
--- OUTSIDE RECORDS SUMMARY | 2025-07-25 12:18 | XMS_ITS | Encounter Summary ---
Author Organization [facility] Health Address [address] [place] [address] Care Team Providers Care Supervisor Correspondence Section Name Role Phone Perry New MD Primary Care Provider [phone] Negrito Maria MD Unavailable Unavailable Sandra Isaacs CUPOLA LINER-DATA WAREHOUSE SPECIALIST Unavailable [phone] Chandra Collins DO Primary Care Provider [phone] Patricia Valentine CUPOLA LINER-DATA WAREHOUSE SPECIALIST Primary Care Provider [phone] Encounter Details Date Type Department Care Team (Late st Contact Info) Description 10/04/2010 [facility] Outpatient Visit [facility] [address] [place] [address] Unknown, Provider Social History Tobacco Use Types Packs/Day Years Used Date Smoking Tobacco: Every Day Cigarettes 1 30 Comments:etq Alcohol Use Standard Drinks/Week Comments Yes 12.5 (1 standard drink = 0.6 oz pure alcohol) encouraged to cut down Sex and Gender Information Value Date Recorded Sex Assigned at Not on file Legal Sex Male 4:16 AM COMMIS CHEF Gender Identity Not on file Sexual Orientation Not on file 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 Not on file Not on file documented as of this encounter Plan of Treatment Not on file documented as of this encounter Visit Diagnoses Not on filedocumented in this encounter Care Teams Supervisor Correspondence Section Relationship Specialty Start Date End Date Perry New MD [address] [place] [address] PCP - General 06/06/10 10/09/18 Chandra Collins DO [address] [place], [place] [id number] PCP - General Family Medicine 10/10/18 03/10/25 Patricia Valentine APRN-DATA WAREHOUSE SPECIALIST [address] [place] [phone] PCP - General Nurse Practitioner Family 03/11/25 Negrito Maria MD [address] [place] [address] Oncology 07/25/11 Sandra Isaacs APRN-DATA WAREHOUSE SPECIALIST [address] [facility] [address] [place] [address] Nurse Practitioner 07/25/11 documented as of this encounter
--- OUTSIDE RECORDS SUMMARY | 2025-07-25 12:18 | XMS_ITS | Clinical Summary ---
Author Organization [facility] [employer] Address [address] [facility] [place] [address] Care Team Providers Care Title Lawyer Name Role Phone Negrito Maria MD Unavailable Unavailable Sandra Isaacs MANAGER POKER-IT NETWORK ARCHITECT Unavailable [phone] Patricia Valentine MANAGER POKER-IT NETWORK ARCHITECT Primary Care Provider [phone] Source Comments [facility] [employer],non-owned Affiliates and Associated Physician Practices is amultiple site organization consisting of ambulatory clinics and hospital sitesin [place], [place], [place] and [place]. This disclosure is being madepursuant to the Care Everywhere program and may not contain all information available regarding this patient. Last updated 18.[facility] [employer] Allergies No known active allergies Medications * Be aware that medications may not be up to date on this document. Alwaysverify current medications with the patient. Ranitidine HCl (RANITIDINE ACID TURF FARM WORKER PO)Indications: Abnormal laboratory test result Take by [...] and heating? Not hard at all 04/01/2025 [facility] - Occupational Stress [...] time in the past 12 m [facility], were you homeless or living in a jail (including now)? 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 Not on file Not [...] to complete this topic Insurance MEDICARE [employer] [place] [id number] Advance Directives * Full Code (Latest Code Status on File) Date Activated Date Inactivated Comments 04/02/2025 2:42 AM 04/02/2025 6:15 PM Care Teams Title Lawyer Relationship Specialty Start Date End Date Patricia Valentine APRN-IT NETWORK ARCHITECT [address] [place] [address] PCP - General Nurse Practitioner Family 03/11/25 Negrito Maria MD Oncology 07/25/11 Sandra Isaacs APRN-IT NETWORK ARCHITECT [facility] [facility] [address] [place] [address] Nurse Practitioner 07/25/11
--- OUTSIDE RECORDS SUMMARY | 2025-07-25 12:18 | XMS_ITS | Encounter Summary ---
Author Organization [facility] Address [address] [place] [address] Care Team Providers Care Health Science Writer Name Role Phone Unavailable Primary Care Provider Unavailabl e Reason for Visit * Reason Comments Medication Refill Encounter Details Date Type Department Care Team (Late st Contact Info) Description 01/11/2019 Refill [facility] Primary Care - [address] [place] [phone] Gee Hoffmann, [address] [place] [phone] Social History Tobacco Use Types Packs/Day Years Used Date Smoking Tobacco: Former Cigarettes Alcohol Use Standard Drinks/Week Comments Yes 0 (1 standard drink = 0.6 oz pur e alcohol) Sex and Gender Information Value Date Recorded Sex Assigned at Not on file Legal Sex Male 4:31 AM SLITTER SCORER Gender Identity Not on file Sexual Orientation Not on file Occupation Industry Job Start Date Job End Date Not on file Not on file Not on file Not on file documented as of this encounter Plan of Treatment Not on file documented as of this encounter Visit Diagnoses Not on filedocumented in this encounter
--- OUTSIDE RECORDS SUMMARY | 2025-07-25 12:18 | XMS_ITS | Clinical Summary ---
Author Organization [facility] Address [address] [place] [phone] Care Team Providers Care Farm Equipment Mechanic Name Role Phone SergePatricia Monika WHITE Primary [...] mg tablet 01/25/2025 Active lancets 33 gauge [facility] Patient checking sugar daily.. 05/01/2017 Active tamsulosin [...] on file Legal Sex Male 5:03 PM WEATHERIZATION OPERATIONS MANAGER Gender Identity Not on file Sexual Orientation [...] Aortic Aneurysm (AAA) Screen Completed Insurance MEDICARE [facility] Care Teams Farm Equipment Mechanic Relationship Specialty Start Date End Date Valentine, Patricia Frank NP [address] [place] [address] PCP - General Nurse Practitioner 10/30/24
--- OUTSIDE RECORDS SUMMARY | 2025-07-25 12:18 | XMS_ITS | Encounter Summary ---
Author Organization [facility] Health Address [address] [place] [address] Care Team Providers Care Zinc Miner Name Role Phone Perry New MD Primary Care Provider [phone] Negrito Maria MD Unavailable Unavailable Sandra Isaacs CLINICAL EDUCATION SPECIALIST-MARKET SALES MANAGER Unavailable [phone] Chandra Collins DO Primary Care Provider [phone] Patricia Valentine CLINICAL EDUCATION SPECIALIST-MARKET SALES MANAGER Primary Care Provider [phone] Encounter Details Date Type Department Care Team (Late st Contact Info) Description 10/30/2010 [facility] Outpatient Visit [facility] [address] [place] [address] Unknown, Provider Social History Tobacco Use Types Packs/Day Years Used Date Smoking Tobacco: Every Day Cigarettes 1 30 Comments:etq Alcohol Use Standard Drinks/Week Comments Yes 12.5 (1 standard drink = 0.6 oz pure alcohol) encouraged to cut down Sex and Gender Information Value Date Recorded Sex Assigned at Not on file Legal Sex Male 4:16 AM QUILL SKINNER Gender Identity Not on file Sexual Orientation Not on file 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 Not on file Not on file documented as of this encounter Plan of Treatment Not on file documented as of this encounter Visit Diagnoses Not on filedocumented in this encounter Care Teams Zinc Miner Relationship Specialty Start Date End Date Perry New MD [address] [place] [address] PCP - General 06/06/10 10/09/18 Chandra Collins DO [address] [place], [place] [phone] PCP - General Family Medicine 10/10/18 03/10/25 Patricia Valentine APRN-MARKET SALES MANAGER [address] [place] [phone] PCP - General Nurse Practitioner Family 03/11/25 Negrito Maria MD [address] [place] [address] Oncology 07/25/11 Sandra Isaacs APRN-MARKET SALES MANAGER [address] [facility] [address] [place] [address] Nurse Practitioner 07/25/11 documented as of this encounter
--- OUTSIDE RECORDS SUMMARY | 2025-07-25 12:18 | XMS_ITS | Encounter Summary ---
Author Organization [facility] Address [address] [place] [address] Care Team Providers Care Telephoto Installer Name Role Phone Gee Hoffmann DO Primary Care Provide r Encounter Details Date Type Department Care Team (Late st Contact Info) Description 09/12/2007 Outpatient Historical [facility] [place] [address] [place] [address] Social History Tobacco Use Types Packs/Day Years Used Date Smoking Tobacco: Never Assessed Sex and Gender Information Value Date Recorded Sex Assigned at Not on file Legal Sex Male 4:31 AM SAFETY INVESTIGATOR Gender Identity Not on file Sexual Orientation Not on file documented as of this encounter Plan of Treatment Not on file documented as of this encounter Visit Diagnoses Not on filedocumented in this encounter Care Teams Telephoto Installer Relationship Specialty Start Date End Date Gee Hoffmann DO PCP - General Family Practice 10/29/16 10/09/18 documented as of this encounter
--- OUTSIDE RECORDS SUMMARY | 2025-07-25 12:18 | XMS_ITS | Encounter Summary ---
Author Organization [facility] Address [address] [place] [address] Care Team Providers Care Candy Mixer Name Role Phone Unavailable Primary Care Provider Unavailabl e Reason for Visit * Reason Comments Medication Refill Encounter Details Date Type Department Care Team (Late st Contact Info) Description 12/01/2018 Refill [facility] Primary Care - [address] [place] [phone] Gee Hoffmann, [address] [place] [phone] Social History Tobacco Use Types Packs/Day Years Used Date Smoking Tobacco: Former Cigarettes Alcohol Use Standard Drinks/Week Comments Yes 0 (1 standard drink = 0.6 oz pur e alcohol) Sex and Gender Information Value Date Recorded Sex Assigned at Not on file Legal Sex Male 4:31 AM TERRITORY SALES EXECUTIVE Gender Identity Not on file Sexual Orientation Not on file Occupation Industry Job Start Date Job End Date Not on file Not on file Not on file Not on file documented as of this encounter Plan of Treatment Not on file documented as of this encounter Visit Diagnoses Not on filedocumented in this encounter
== END 2025-07-25 12:52 | disposition left against medical advice (07) ==
LOC: ANHED 12:16
PROVIDERS: PCP Nurse Practitioner Family
DX: R20.0 Anesthesia of skin (principal)
CPT/HCPCS: 99199